=== PATIENT | male | born 1960 | race American Indian/Alaskan Native ===

== ENCOUNTER 2017-12-12 20:49 | Inpatient (IN) | payer OTHER ==
[2017-12-12 22:21] LABS: Hemoglobin 13.9 gm/dl (11.8-15.2); Mean Corpuscular HGB Conc 34 % (32-34); Mean Corpuscular Hemoglobin 31 pg (28-32); Mean Corpuscular Volume 91 fl (84-94); Platelet Count 199 K/mm3 (140-440); Red Blood Count 4.49 M/mm3 (3.65-5.03)
[2017-12-12 22:28] LABS: Red Cell Distribution Width 23.2 % (13.2-15.2)
[2017-12-12 22:30] LABS: INR 1.58 (0.87-1.13)
[2017-12-12 22:31] LABS: Partial Thromboplastin Time 34.8 Sec. (24.2-36.6)
[2017-12-12 22:35] LABS: Albumin 2.6 g/dL (3.9-5); Calcium 7.8 mg/dL (8.4-10.2)
[2017-12-12 22:36] LABS: Albumin 2.7 g/dL (3.9-5)
[2017-12-12 22:38] LABS: Bacteria,Urine 2+ /HPF (Negative); Bilirubin,Urine MOD (Negative); Blood,Urine MOD (Negative); Color,Urine Amber (Yellow); Mucus,Urine FEW /HPF; Protein,Urine <15 mg/dL mg/dL (Negative)
[2017-12-12 22:39] LABS: Ictotest,Urine Positive (Negative)
[2017-12-12 22:56] LABS: Bilirubin,Direct 16.7 mg/dL (0-0.2)
[2017-12-12 23:08] LABS: Basophils % (Manual) 0 % (0.0-1.8); Platelet Estimate Consistent w Auto; Total Cells Counted 100
[2017-12-12 23:09] LABS: Anisocytosis 1+; Ovalocytes 1+; Poikilocytosis 1+; Target Cells 1+
--- NOTE | 2017-12-13 00:11 | Emergency Department Report ---
ED Abdominal Pain HPI - General Chief Complaint: Abdominal Pain Stated Complaint: ABDOMINAL PAIN Source: patient Mode of arrival: Ambulatory Limitations: No Limitations - History of Present Illness Initial Comments: 57-year-old male presents to the Hospital pain and worsening abdominal pain, distention, decreased urine output, and yellowing of his eyes. In January 2017 patient was informed by a doctor that he had liver issues after blood work. He states he was placed on a unkown medication and was unable to follow-up for further testing or imaging due to lack of insurance. For the last 6-7 weeks patient has had progressive abdominal distention, yellowing of the eyes, right- sided abdominal pain, decreased appetite, and decreased urinary output. Abdominal pain rated 7/10 intensity and worse with palpation. No reports of fever, Tylenol overdose, or daily alcohol. No reports of vomiting, fever or chills Severity scale (0 -10): 6 - Related Data Allergies Allergy/AdvReac Type Severity Reaction Status Date / Time No Known Allergies Allergy Unverified 12/12/17 21:36 ED Review of Systems ROS: Stated complaint: ABDOMINAL PAIN Other details as noted in HPI Comment: All other systems reviewed and negative ED Past Medical Hx - Past Medical History Previous Medical History?: Yes Hx Diabetes: Yes - Surgical History Past Surgical History?: No - Social History Smoking Status: Never Smoker Substance Use Type: None ED Physical Exam - General Limitations: No Limitations - Other Other exam information: General: No limitations, patient is alert in no acute distress Head exam: Atraumatic, normocephalic Eyes exam: Significantly icteric sclera ENT: Moist mucous membrane, normal oropharynx Neck exam: Normal inspection, full range of motion, no meningismus nontender Respiratory exam: Clear to auscultation without wheezes, or rales Cardiovascular: Normal rate and rhythm, normal heart sounds Abdomen: Soft, distended, positive ascites, right-sided abdominal tenderness Extremity: Full range of motion normal inspection no deformity Back: Normal Inspection, full range of motion, no tenderness Neurologic: Alert, oriented x3, cranial nerves intact, no motor or sensory deficit Psychiatric: normal affect, normal mood Skin: Warm, dry, intact ED Course Vital Signs 12/12/17 12/12/17 12/12/17 21:09 21:36 23:34 Temperature 95.3 F L 98.3 F Pulse Rate 98 H 98 H Respiratory 22 20 18 Rate Blood Pressure 140/72 Blood Pressure 140/72 [Right] O2 Sat by Pulse 98 98 100 Oximetry - Consultations Consultation #1: 12/13/17 01:17 consult with gi (dr Lozano) and nephro (DR tena) ordered. I did not discuss case with these doctors and pt is stable for consultation in tomorrow. ED Medical Decision Making - Lab Data Result diagrams: 12/12/17 22:06 12/12/17 22:06 Lab Results 12/12/17 12/12/17 12/12/17 Range/Units 22:06 22:06 22:06 WBC 21.0 H (4.5-11.0) K/mm3 RBC 4.49 (3.65-5.03) M/mm3 Hgb 13.9 (11.8-15.2) gm/dl Hct 41.0 (35.5-45.6) % MCV 91 (84-94) fl MCH 31 (28-32) pg MCHC 34 (32-34) % RDW 23.2 H (13.2-15.2) % Plt Count 199 (140-440) K/mm3 Add Manual Diff Complete Total Counted 100 Seg Neuts % (Manual) 94.0 H (40.0-70.0) % Band Neutrophils % 0 % Lymphocytes % (Manual) 1.0 L (13.4-35.0) % Reactive Lymphs % (Man) 0 % Monocytes % (Manual) 4.0 (0.0-7.3) % Eosinophils % (Manual) 1.0 (0.0-4.3) % Basophils % (Manual) 0 (0.0-1.8) % Metamyelocytes % 0 % Myelocytes % 0 % Promyelocytes % 0 % Blast Cells % 0 % Nucleated RBC % Not Reportable Seg Neutrophils # Man 19.7 H (1.8-7.7) K/mm3 Band Neutrophils # 0.0 K/mm3 Lymphocytes # (Manual) 0.2 L (1.2-5.4) K/mm3 Abs React Lymphs (Man) 0.0 K/mm3 Monocytes # (Manual) 0.8 (0.0-0.8) K/mm3 Eosinophils # (Manual) 0.2 (0.0-0.4) K/mm3 Basophils # (Manual) 0.0 (0.0-0.1) K/mm3 Metamyelocytes # 0.0 K/mm3 Myelocytes # 0.0 K/mm3 Promyelocytes # 0.0 K/mm3 Blast Cells # 0.0 K/mm3 WBC Morphology Not Reportable Hypersegmented Neuts Not Reportable Hyposegmented Neuts Not Reportable Hypogranular Neuts Not Reportable Smudge Cells Not Reportable Toxic Granulation Not Reportable Toxic Vacuolation Not Reportable Dohle Bodies Not Reportable Pelger-Huet Anomaly Not Reportable Phyllis Rods Not Reportable Platelet Estimate Consistent w auto Clumped Platelets Not Reportable Plt Clumps, EDTA Not Reportable Large Platelets Not Reportable Giant Platelets Not Reportable Platelet Satelliting Not Reportable Plt Morphology Comment Not Reportable RBC Morphology Not Reportable Dimorphic RBCs Not Reportable Polychromasia Not Reportable Hypochromasia Not Reportable Poikilocytosis 1+ Anisocytosis 1+ Microcytosis Not Reportable Macrocytosis Not Reportable Spherocytes Not Reportable Pappenheimer Bodies Not Reportable Sickle Cells Not Reportable Target Cells 1+ Tear Drop Cells Not Reportable Ovalocytes 1+ Helmet Cells Not Reportable [place] Bodies Not Reportable Mcclave Rings Not Reportable Brijesh Cells Not Reportable Bite Cells Not Reportable Crenated Cell Not Reportable Elliptocytes Not Reportable Acanthocytes (Spur) Not Reportable Rouleaux Not Reportable Hemoglobin C Crystals Not Reportable Schistocytes Not Reportable Malaria parasites Not Reportable Pedro Bodies Not Reportable Hem Pathologist Commnt No PT 19.8 H (12.2-14.9) Sec. INR 1.58 H (0.87-1.13) APTT 34.8 (24.2-36.6) Sec. Sodium (137-145) mmol/L Potassium (3.6-5.0) mmol/L Chloride (98-107) mmol/L Carbon Dioxide (22-30) mmol/L Anion Gap mmol/L BUN (9-20) mg/dL Creatinine (0.8-1.5) mg/dL Estimated GFR ml/min BUN/Creatinine Ratio % Glucose (75-100) mg/dL Calcium (8.4-10.2) mg/dL Total Bilirubin 28.40 H (0.1-1.2) mg/dL Direct Bilirubin 16.7 H (0-0.2) mg/dL Indirect Bilirubin 11.7 mg/dL AST 429 H (5-40) units/L ALT 194 H (7-56) units/L Alkaline Phosphatase 137 H (35-129) units/L Ammonia (25-60) umol/L Total Protein 6.1 L (6.3-8.2) g/dL Albumin 2.7 L (3.9-5) g/dL Albumin/Globulin Ratio 0.8 % Lipase (13-60) units/L Urine Color (Yellow) Urine Turbidity (Clear) Urine pH (5.0-7.0) Ur Specific [place] (1.003-1.030) Urine Protein (Negative) mg/dL Urine Glucose (UA) (Negative) mg/dL Urine Ketones (Negative) mg/dL Urine Blood (Negative) Urine Nitrite (Negative) Urine Bilirubin (Negative) Urine Ictotest (Negative) Urine Urobilinogen (<2.0) mg/dL Ur Leukocyte Esterase (Negative) Urine WBC (Auto) (0.0-6.0) /HPF Urine RBC (Auto) (0.0-6.0) /HPF U Epithel Cells (Auto) (0-13.0) /HPF Urine Bacteria (Auto) (Negative) /HPF Urine Mucus /HPF Acetaminophen (10.0-30.0) ug/mL Hepatitis A IgM Ab (NonReactive) Hep Bs Antigen (Negative) Hep B Core IgM Ab (NonReactive) Hepatitis C Antibody (NonReactive) 12/12/17 12/12/17 12/12/17 Range/Units 22:06 23:35 23:39 WBC (4.5-11.0) K/mm3 RBC (3.65-5.03) M/mm3 Hgb (11.8-15.2) gm/dl Hct (35.5-45.6) % MCV (84-94) fl MCH (28-32) pg MCHC (32-34) % RDW (13.2-15.2) % Plt Count (140-440) K/mm3 Add Manual Diff Total Counted Seg Neuts % (Manual) (40.0-70.0) % Band Neutrophils % % Lymphocytes % (Manual) (13.4-35.0) % Reactive Lymphs % (Man) % Monocytes % (Manual) (0.0-7.3) % Eosinophils % (Manual) (0.0-4.3) % Basophils % (Manual) (0.0-1.8) % Metamyelocytes % % Myelocytes % % Promyelocytes % % Blast Cells % % Nucleated RBC % Seg Neutrophils # Man (1.8-7.7) K/mm3 Band Neutrophils # K/mm3 Lymphocytes # (Manual) (1.2-5.4) K/mm3 Abs React Lymphs (Man) K/mm3 Monocytes # (Manual) (0.0-0.8) K/mm3 Eosinophils # (Manual) (0.0-0.4) K/mm3 Basophils # (Manual) (0.0-0.1) K/mm3 Metamyelocytes # K/mm3 Myelocytes # K/mm3 Promyelocytes # K/mm3 Blast Cells # K/mm3 WBC Morphology Hypersegmented Neuts Hyposegmented Neuts Hypogranular Neuts Smudge Cells Toxic Granulation Toxic Vacuolation Dohle Bodies Pelger-Huet Anomaly Phyllis Rods Platelet Estimate Clumped Platelets Plt Clumps, EDTA Large Platelets Giant Platelets Platelet Satelliting Plt Morphology Comment RBC Morphology Dimorphic RBCs Polychromasia Hypochromasia Poikilocytosis Anisocytosis Microcytosis Macrocytosis Spherocytes Pappenheimer Bodies Sickle Cells Target Cells Tear Drop Cells Ovalocytes Helmet Cells [place] Bodies Mcclave Rings [place] Cells Bite Cells Crenated Cell Elliptocytes Acanthocytes (Spur) Rouleaux Hemoglobin C Crystals Schistocytes Malaria parasites Pedro Bodies Hem Pathologist Commnt PT (12.2-14.9) Sec. INR (0.87-1.13) APTT (24.2-36.6) Sec. Sodium 132 L (137-145) mmol/L Potassium 4.3 (3.6-5.0) mmol/L Chloride 92.4 L (98-107) mmol/L Carbon Dioxide 23 (22-30) mmol/L Anion Gap 21 mmol/L BUN 52 H (9-20) mg/dL Creatinine 1.7 H (0.8-1.5) mg/dL Estimated GFR 42 ml/min BUN/Creatinine Ratio 31 % Glucose 74 L (75-100) mg/dL Calcium 7.8 L (8.4-10.2) mg/dL Total Bilirubin 28.00 H (0.1-1.2) mg/dL Direct Bilirubin (0-0.2) mg/dL Indirect Bilirubin mg/dL AST 418 H (5-40) units/L ALT 190 H (7-56) units/L Alkaline Phosphatase 135 H (35-129) units/L Ammonia (25-60) umol/L Total Protein 6.3 (6.3-8.2) g/dL Albumin 2.6 L (3.9-5) g/dL Albumin/Globulin Ratio 0.7 % Lipase 230 H (13-60) units/L Urine Color (Yellow) Urine Turbidity (Clear) Urine pH (5.0-7.0) Ur Specific [place] (1.003-1.030) Urine Protein (Negative) mg/dL Urine Glucose (UA) (Negative) mg/dL Urine Ketones (Negative) mg/dL Urine Blood (Negative) Urine Nitrite (Negative) Urine Bilirubin (Negative) Urine Ictotest (Negative) Urine Urobilinogen (<2.0) mg/dL Ur Leukocyte Esterase (Negative) Urine WBC (Auto) (0.0-6.0) /HPF Urine RBC (Auto) (0.0-6.0) /HPF U Epithel Cells (Auto) (0-13.0) /HPF Urine Bacteria (Auto) (Negative) /HPF Urine Mucus /HPF Acetaminophen (10.0-30.0) ug/mL Hepatitis A IgM Ab Non-reactive (NonReactive) Hep Bs Antigen Non-reactive (Negative) Hep B Core IgM Ab Non-reactive (NonReactive) Hepatitis C Antibody Non-reactive (NonReactive) 12/12/17 12/12/17 12/12/17 Range/Units 23:39 23:50 Unknown WBC (4.5-11.0) K/mm3 RBC (3.65-5.03) M/mm3 Hgb (11.8-15.2) gm/dl Hct (35.5-45.6) % MCV (84-94) fl MCH (28-32) pg MCHC (32-34) % RDW (13.2-15.2) % Plt Count (140-440) K/mm3 Add Manual Diff Total Counted Seg Neuts % (Manual) (40.0-70.0) % Band Neutrophils % % Lymphocytes % (Manual) (13.4-35.0) % Reactive Lymphs % (Man) % Monocytes % (Manual) (0.0-7.3) % Eosinophils % (Manual) (0.0-4.3) % Basophils % (Manual) (0.0-1.8) % Metamyelocytes % % Myelocytes % % Promyelocytes % % Blast Cells % % Nucleated RBC % Seg Neutrophils # Man (1.8-7.7) K/mm3 Band Neutrophils # K/mm3 Lymphocytes # (Manual) (1.2-5.4) K/mm3 Abs React Lymphs (Man) K/mm3 Monocytes # (Manual) (0.0-0.8) K/mm3 Eosinophils # (Manual) (0.0-0.4) K/mm3 Basophils # (Manual) (0.0-0.1) K/mm3 Metamyelocytes # K/mm3 Myelocytes # K/mm3 Promyelocytes # K/mm3 Blast Cells # K/mm3 WBC Morphology Hypersegmented Neuts Hyposegmented Neuts Hypogranular Neuts Smudge Cells Toxic Granulation Toxic Vacuolation Dohle Bodies Pelger-Huet Anomaly Phyllis Rods Platelet Estimate Clumped Platelets Plt Clumps, EDTA Large Platelets Giant Platelets Platelet Satelliting Plt Morphology Comment RBC Morphology Dimorphic RBCs Polychromasia Hypochromasia Poikilocytosis Anisocytosis Microcytosis Macrocytosis Spherocytes Pappenheimer Bodies Sickle Cells Target Cells Tear Drop Cells Ovalocytes Helmet Cells [place] Bodies Mcclave Rings Brijesh Cells Bite Cells Crenated Cell Elliptocytes Acanthocytes (Spur) Rouleaux Hemoglobin C Crystals Schistocytes Malaria parasites Pedro Bodies Hem Pathologist Commnt PT (12.2-14.9) Sec. INR (0.87-1.13) APTT (24.2-36.6) Sec. Sodium (137-145) mmol/L Potassium (3.6-5.0) mmol/L Chloride (98-107) mmol/L Carbon Dioxide (22-30) mmol/L Anion Gap mmol/L BUN (9-20) mg/dL Creatinine (0.8-1.5) mg/dL Estimated GFR ml/min BUN/Creatinine Ratio % Glucose (75-100) mg/dL Calcium (8.4-10.2) mg/dL Total Bilirubin (0.1-1.2) mg/dL Direct Bilirubin (0-0.2) mg/dL Indirect Bilirubin mg/dL AST (5-40) units/L ALT (7-56) units/L Alkaline Phosphatase (35-129) units/L Ammonia 10.0 L (25-60) umol/L Total Protein (6.3-8.2) g/dL Albumin (3.9-5) g/dL Albumin/Globulin Ratio % Lipase (13-60) units/L Urine Color [place] (Yellow) Urine Turbidity Clear (Clear) Urine pH 5.0 (5.0-7.0) Ur Specific [place] 1.016 (1.003-1.030) Urine Protein <15 mg/dl (Negative) mg/dL Urine Glucose (UA) Neg (Negative) mg/dL Urine Ketones Neg (Negative) mg/dL Urine Blood Mod (Negative) Urine Nitrite Neg (Negative) Urine Bilirubin Mod (Negative) Urine Ictotest Positive (Negative) Urine Urobilinogen 4.0 (<2.0) mg/dL Ur Leukocyte Esterase Tr (Negative) Urine WBC (Auto) 11.0 H (0.0-6.0) /HPF Urine RBC (Auto) 3.0 (0.0-6.0) /HPF U Epithel Cells (Auto) 1.0 (0-13.0) /HPF Urine Bacteria (Auto) 2+ (Negative) /HPF Urine Mucus Few /HPF Acetaminophen < 5.0 L (10.0-30.0) ug/mL Hepatitis A IgM Ab (NonReactive) Hep Bs Antigen (Negative) Hep B Core IgM Ab (NonReactive) Hepatitis C Antibody (NonReactive) - Radiology Data Radiology results: report reviewed read by radiologist: unique US: IMPRESSION: Cirrhotic changes of the liver. No focal hepatic lesion is demonstrated. Moderate ascites. No shadowing gallstones or biliary dilatation. Bowel gas obscures the pancreas. ct a/p noncontrast: Cirrhotic changes of the liver. No focal hepatic lesions. Moderate ascites and mild to moderate enlargement of the spleen. Multiple enlarged upper abdominal lymph nodes suspected to be reactive secondary to portal hypertension - Medical Decision Making Patient has chronic progressive liver disease initially diagnosed in January 2017. Patient was unable to follow up. Now he has jaundice, signs of liver failure, cirrhosis, and renal insufficiency. Hepatitis panel unremarkable. CT and ultrasound only significant for cirrhosis and ascites. Patient will be admitted to the hospital for further evaluation by GI and renal Patient has a WBC count of 21. Urine shows bacteria and elevated WBCs obtained from catheterization. Cultures of urine and blood are pending. Rocephin initiated. - Differential Diagnosis liver failure, cancer, hepatitis, biliary obstruction Critical Care Time: No Critical care attestation.: If time is entered above; I have spent that time in minutes in the direct care of this critically ill patient, excluding procedure time. ED Disposition Clinical Impression: Cirrhosis of liver, Jaundice, Elevated LFTs, Ascites, Renal insufficiency, UTI (urinary tract infection), Leukocytosis Disposition: OP ADMIT IP TO THIS HOSP Is pt being admited?: Yes Condition: Stable Time of Disposition: 01:21 (Dr Gamino/hosp)
[2017-12-13 00:41] LABS: Hepatitis A Antibody IgM Non-Reactive (NonReactive); Hepatitis B Core IgM Non-Reactive (NonReactive); Hepatitis B Surface Antigen Non-Reactive (Negative); Hepatitis C Virus Antibody Non-Reactive (NonReactive)
--- NOTE | 2017-12-13 01:04 | Cat Scan Report ---
FINAL REPORT EXAM: CT ABDOMEN PELVIS WO CON HISTORY: elevated lft's, jaundice, renal insuf COMPARISON: None available. TECHNIQUE: Contiguous axial images were obtained. Additional sagittal and coronal reformatted images were obtained. FINDINGS: Mild linear atelectasis at the lung bases. Trace left-sided pleural effusion. No calcified gallstones. Nodular contour of the liver concerning for cirrhosis. No gross focal hepatic lesion on this noncontrast study. Spleen is enlarged measuring 14 centimeters in length. Pancreas is grossly unremarkable. No adrenal mass. No nephrolithiasis or hydronephrosis. Aorta and IVC are normal in caliber. Mild to moderate calcified plaque along the aorta. Tate catheter decompresses the urinary bladder. Prostate gland is mildly enlarged measuring 4.1 x 5.4 centimeters in axial dimension. Moderate ascites. No loculated collection or free air. Several prominent abdominal lymph nodes suspected to be reactive secondary to portal hypertension. Mild wall thickening of segments of large and small bowel loops which may be reactive secondary to ascites/hypoproteinemia. The appendix is not visualized. No bowel obstruction. No free air pneumatosis. Lumbar vertebral body heights preserved. Bony pelvis is grossly intact. IMPRESSION: Cirrhotic changes of the liver. No focal hepatic lesion on this noncontrast study. Moderate ascites and [id number] enlargement of the spleen. Multiple enlarged upper abdominal lymph nodes suspected to be reactive secondary to portal hypertension. Mild wall thickening of segments of large and small bowel loops which may be reactive secondary to ascites/hypoproteinemia. Mild primary inflammation of bowel is not excluded. The appendix is not visualized. No bowel obstruction. No free air pneumatosis.
--- NOTE | 2017-12-13 01:07 | Ultrasound Report ---
FINAL REPORT EXAM: US ABDOMEN COMPLETE HISTORY: elevated lft, jaundice, COMPARISON: CT of the abdomen pelvis from the same date. TECHNIQUE: Several real-time grayscale and color Doppler images were obtained. FINDINGS: Nodular contour of the liver with heterogeneous echogenicity compatible cirrhosis. Moderate ascites at the margin of the liver. No focal hepatic lesion is demonstrated. Bowel gas obscures the pancreas. No shadowing gallstones. No biliary dilatation. The common bile duct measures 3 millimeters. Presence of ascites limits evaluation of gallbladder wall thickening. Right kidney measures 12 centimeters in length. The left kidney measures 12.3 centimeters in length. No hydronephrosis. Spleen measures 12 centimeters. IMPRESSION: Cirrhotic changes of the liver. No focal hepatic lesion is demonstrated. Moderate ascites. No shadowing gallstones or biliary dilatation. Bowel gas obscures the pancreas.
[2017-12-13] MEDS ORDERED: ROCEPHIN/NS 1 GM/50 ML 1 GM/50 ML BAG IV ONE (01:15)
[2017-12-13] MEDS ORDERED: cefTRIAXone 1 GM in NACL 0.9% 20 ML IV ONE (01:30)
[2017-12-13] MEDS ORDERED: MORPHINE IV PRN (03:24)
[2017-12-13] MEDS ORDERED: TYLENOL PO PRN (03:24)
[2017-12-13] MEDS ORDERED: ZOFRAN IV PRN (03:24)
[2017-12-13] MEDS ORDERED: SODIUM CHLORIDE FLUSH SYRINGE 10 ML IV PRN (03:24)
--- NOTE | 2017-12-13 03:30 | History and Physical Report ---
History of Present Illness Date of examination: 12/13/17 History of present illness: 57-year-old man with a history of liver disease diagnosed in January 2017 comes to emergency room with complaints of right lower quadrant pain which has been ongoing over the last several weeks. The patient is unable to describe the pain , intermittent in nature lasting for a few hours, intensity 7/10, no radiation , he can identify exacerbating or relieving factors. He admits to nausea, no vomiting, no alcohol, drug use. He states when he was diagnosed in 2016 he was unable to follow up with his primary care for further testing due to lack of insurance. He states he was given some pills which she took however he cannot recall the name of the pills Review of systems Constitutional: no weight loss, chills Ears, eyes, nose, mouth and throat: no nasal congestion, no nasal discharge, no sinus pressure, no vision change, no red eye. Neck: No neck pain or rigidity. Cardiovascular: no chest pain, palpitations Respiratory: No cough, shortness of breath Gastrointestinal: no hematochezia Genitourinary : no dysuria, frequency , no hematuria Musculoskeletal: no joint swelling or muscle ache Integumentary: no rash, no pruritis Neurological: no parathesias, no numbness, no focal weakness Endocrine: no cold or heat intolerance, no polyuria or polydipsia Hematologic/Lymphatic: no easy bruising, no easy bleeding, no gland swelling Allergic/Immunologic: no urticaria, no angioedema. PAST MEDICAL HISTORY: Cirrhosis PAST SURGICAL HISTORY: None SOCIAL HISTORY: Denies alcohol, tobacco, drugs FAMILY HISTORY: Hypertension Medications and Allergies Allergies Allergy/AdvReac Type Severity Reaction Status Date / Time No Known Allergies Allergy Unverified 12/12/17 21:36 Home Medications Medication Instructions Recorded Confirmed Last Taken Type Docusate Sodium [Colace] 100 mg PO BID PRN #20 capsule 12/22/17 Unknown Rx Famotidine [Pepcid] 20 mg PO BID #30 tablet 12/22/17 Unknown Rx Ondansetron [Zofran TAB] 4 mg PO Q8HR PRN #15 tablet 12/22/17 Unknown Rx Active Meds: Active Medications Acetaminophen (Tylenol) 650 mg PO Q4H PRN PRN Reason: Pain MILD(1-3)/Fever >100.5/POP Ceftriaxone Sodium (Rocephin/Ns 1 Gm/50 Ml) 1 gm in 50 mls @ 100 mls/hr IV Q24H BHARGAVI; Protocol Morphine Sulfate (Morphine) 1 mg IV Q4H PRN PRN Reason: Pain, Moderate (4-6) Ondansetron HCl (Zofran) 4 mg IV Q8H PRN PRN Reason: Nausea And Vomiting Sodium Chloride (Sodium Chloride Flush Syringe 10 Ml) 10 ml IV BID BHARGAVI Sodium Chloride (Sodium Chloride Flush Syringe 10 Ml) 10 ml IV PRN PRN PRN Reason: LINE FLUSH Exam - Physical Exam Narrative exam: Gen. appearance: Patient lying in bed, no apparent distress HEENT: Normocephalic, atraumatic, pupils equally round and reactive to light, extraocular movement intact, positive sclericterus,. No JVD or thyromegaly or nodule,neck supple, no carotid bruit ,mucous membranes moist, no exudate or erythema Heart: S1, S2, regular rate and rhythm Lungs: Clear to auscultation bilaterally, breathing comfortable Abdomen: Positive bowel sounds, tender right lower quadrant, nondistended, no organomegaly Extremity: No edema, cyanosis, clubbing Skin: Jaundice, No rash, nodules, warm, dry Neuro: Oriented 3, cranial nerves II-12 intact, speech is fluent, motor and sensory intact - Constitutional Vitals: Temp Pulse Resp BP Pulse Ox 98.3 F 96 H 18 136/62 99 12/12/17 21:36 12/13/17 01:00 12/13/17 01:00 12/13/17 01:00 12/13/17 01:00 Results - Labs CBC & Chem 7: 12/20/17 07:00 12/22/17 10:27 Labs: Abnormal lab results 12/12/17 12/12/17 12/12/17 Range/Units 22:06 22:06 22:06 WBC 21.0 H (4.5-11.0) K/mm3 RDW 23.2 H (13.2-15.2) % Seg Neuts % (Manual) 94.0 H (40.0-70.0) % Lymphocytes % (Manual) 1.0 L (13.4-35.0) % Seg Neutrophils # Man 19.7 H (1.8-7.7) K/mm3 Lymphocytes # (Manual) 0.2 L (1.2-5.4) K/mm3 PT 19.8 H (12.2-14.9) Sec. INR 1.58 H (0.87-1.13) Sodium (137-145) mmol/L Chloride (98-107) mmol/L BUN (9-20) mg/dL Creatinine (0.8-1.5) mg/dL Glucose (75-100) mg/dL Calcium (8.4-10.2) mg/dL Total Bilirubin 28.40 H (0.1-1.2) mg/dL Direct Bilirubin 16.7 H (0-0.2) mg/dL AST 429 H (5-40) units/L ALT 194 H (7-56) units/L Alkaline Phosphatase 137 H (35-129) units/L Ammonia (25-60) umol/L Total Protein 6.1 L (6.3-8.2) g/dL Albumin 2.7 L (3.9-5) g/dL Lipase (13-60) units/L Urine WBC (Auto) (0.0-6.0) /HPF Acetaminophen (10.0-30.0) ug/mL 12/12/17 12/12/17 12/12/17 Range/Units 22:06 23:35 23:39 WBC (4.5-11.0) K/mm3 RDW (13.2-15.2) % Seg Neuts % (Manual) (40.0-70.0) % Lymphocytes % (Manual) (13.4-35.0) % Seg Neutrophils # Man (1.8-7.7) K/mm3 Lymphocytes # (Manual) (1.2-5.4) K/mm3 PT (12.2-14.9) Sec. INR (0.87-1.13) Sodium 132 L (137-145) mmol/L Chloride 92.4 L (98-107) mmol/L BUN 52 H (9-20) mg/dL Creatinine 1.7 H (0.8-1.5) mg/dL Glucose 74 L (75-100) mg/dL Calcium 7.8 L (8.4-10.2) mg/dL Total Bilirubin 28.00 H (0.1-1.2) mg/dL Direct Bilirubin (0-0.2) mg/dL AST 418 H (5-40) units/L ALT 190 H (7-56) units/L Alkaline Phosphatase 135 H (35-129) units/L Ammonia (25-60) umol/L Total Protein (6.3-8.2) g/dL Albumin 2.6 L (3.9-5) g/dL Lipase 230 H (13-60) units/L Urine WBC (Auto) (0.0-6.0) /HPF Acetaminophen < 5.0 L (10.0-30.0) ug/mL 12/12/17 12/12/17 Range/Units 23:50 Unknown WBC (4.5-11.0) K/mm3 RDW (13.2-15.2) % Seg Neuts % (Manual) (40.0-70.0) % Lymphocytes % (Manual) (13.4-35.0) % Seg Neutrophils # Man (1.8-7.7) K/mm3 Lymphocytes # (Manual) (1.2-5.4) K/mm3 PT (12.2-14.9) Sec. INR (0.87-1.13) Sodium (137-145) mmol/L Chloride (98-107) mmol/L BUN (9-20) mg/dL Creatinine (0.8-1.5) mg/dL Glucose (75-100) mg/dL Calcium (8.4-10.2) mg/dL Total Bilirubin (0.1-1.2) mg/dL Direct Bilirubin (0-0.2) mg/dL AST (5-40) units/L ALT (7-56) units/L Alkaline Phosphatase (35-129) units/L Ammonia 10.0 L (25-60) umol/L Total Protein (6.3-8.2) g/dL Albumin (3.9-5) g/dL Lipase (13-60) units/L Urine WBC (Auto) 11.0 H (0.0-6.0) /HPF Acetaminophen (10.0-30.0) ug/mL - Imaging and Cardiology CT scan - abdomen: report reviewed CT Scan - head: report reviewed US - abdomen: report reviewed Assessment and Plan Assessment Cirrhosis, unclear etiology UTI Ascites jaundice Acute renal failure Coagulopathy Plan Admit to medicine Check hepatitis panel, consult GI, renal Start empiric IV Rocephin, follow cultures DVT prophylaxis
--- NOTE | 2017-12-13 09:44 | Gastroenterology Consultation ---
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 bili of 28. He was told of cirrhosis a year ago by a physician but has had no medical follow up which he attributes to lack of affordable insurance. He reports being a few medications for a few months but does not recall the names of these. He has no history alcohol use and does not take OTC meds with the exception of some maltese herbs, the details of which he does not recall. He was told of an elevated BG about a year ago, but has had no f/u on this. There is no FH of liver disease. Past History Past Medical History: diabetes, liver disease Past Surgical History: No surgical history Social history: no significant social history, lives with family. denies: smoking, alcohol abuse Family history: no significant family history Medications and Allergies Allergies Allergy/AdvReac Type Severity Reaction Status Date / Time No Known Allergies Allergy Unverified 12/12/17 21:36 Active Meds: Active Medications Acetaminophen (Tylenol) 650 mg PO Q4H PRN PRN Reason: Pain MILD(1-3)/Fever >100.5/POP Ceftriaxone Sodium 1 gm/ (Sodium Chloride) 20 mls @ 2 mls/min IV Q24HR BHARGAVI Morphine Sulfate (Morphine) 1 mg IV Q4H PRN PRN Reason: Pain, Moderate (4-6) Ondansetron HCl (Zofran) 4 mg IV Q8H PRN PRN Reason: Nausea And Vomiting Sodium Chloride (Sodium Chloride Flush Syringe 10 Ml) 10 ml IV BID BHARGAVI Sodium Chloride (Sodium Chloride Flush Syringe 10 Ml) 10 ml IV PRN PRN PRN Reason: LINE FLUSH Review of Systems - Review of Systems Constitutional: no weight loss, no weight gain, no fever, no chills Eyes: no change in vision, no pain Ears, Nose, Throat: no decreased hearing, no difficulty swallowing, no painful swallowing Cardiovascular: no chest pain, no edema, no rapid/irregular heart beat, no shortness of breath Respiratory: no cough, no shortness of breath, no wheezing Gastrointestinal: jaundice, no abdominal pain, no nausea, no vomiting, no diarrhea, no constipation, no hematemesis, no coffee ground emesis, no BRBPR, no melena, no heartburn, no belching Rectal: no pain, no bleeding Male Genitourinary: deferred Musculoskeletal: no gait dysfunction, no joint pain, no muscle pain, no muscle weakness Integumentary: jaundice, no rash, no pruritis Neurological: no paralysis, no weakness, no memory loss, no changes in smell/ taste Psychiatric: no anxiety, no memory loss, no change in sleep habits, no change in appetite, no suicidal ideation, no disorientation Endocrine: no cold intolerance, no heat intolerance Hematologic/Lymphatic: no easy bruising, no easy bleeding Allergic/Immunologic: no wheezing Exam - Constitutional Vital Signs: Temp Pulse Resp BP Pulse Ox 98.3 F 101 H 20 122/66 96 12/13/17 07:20 12/13/17 07:20 12/13/17 07:20 12/13/17 07:20 12/13/17 07:20 General appearance: no acute distress, well-nourished, obese - EENT Eyes: PERRL, EOM intact, scleral icterus ENT: no hearing intact, no clear oral mucosa, no dentition normal - Neck Neck: no supple, no normal ROM, no rigidity - Respiratory Respiratory effort: normal Respiratory: bilateral: CTA - Breasts Breasts: deferred - Cardiovascular Rhythm: regular Heart Sounds: Present: S1 & S2. Absent: gallop, rub Extremities: pulses intact, No edema, normal color, Full ROM - Gastrointestinal General gastrointestinal: Present: soft, non-tender, non-distended, normal bowel sounds, other (obese). Absent: hepatomegaly, splenomegaly, mass Rectal Exam: deferred - Genitourinary Male Genitourinary: deferred - Integumentary Integumentary: Present: clear, warm, dry - Musculoskeletal Musculoskeletal: normal - Neurologic Neurological: alert and oriented x3 - Psychiatric Psychiatric: appropriate mood/affect, intact judgment & insight, memory intact - Labs CBC & Chem 7: 12/12/17 22:06 12/12/17 22:06 Lab Results: Laboratory Results - last 24 hr 12/12/17 12/12/17 12/12/17 22:06 22:06 22:06 WBC 21.0 H RBC 4.49 Hgb 13.9 Hct 41.0 MCV 91 MCH 31 MCHC 34 RDW 23.2 H Plt Count 199 Add Manual Diff Complete Total Counted 100 Seg Neuts % (Manual) 94.0 H Band Neutrophils % 0 Lymphocytes % (Manual) 1.0 L Reactive Lymphs % (Man) 0 Monocytes % (Manual) 4.0 Eosinophils % (Manual) 1.0 Basophils % (Manual) 0 Metamyelocytes % 0 Myelocytes % 0 Promyelocytes % 0 Blast Cells % 0 Nucleated RBC % Not Reportable Seg Neutrophils # Man 19.7 H Band Neutrophils # 0.0 Lymphocytes # (Manual) 0.2 L Abs React Lymphs (Man) 0.0 Monocytes # (Manual) 0.8 Eosinophils # (Manual) 0.2 Basophils # (Manual) 0.0 Metamyelocytes # 0.0 Myelocytes # 0.0 Promyelocytes # 0.0 Blast Cells # 0.0 WBC Morphology Not Reportable Hypersegmented Neuts Not Reportable Hyposegmented Neuts Not Reportable Hypogranular Neuts Not Reportable Smudge Cells Not Reportable Toxic Granulation Not Reportable Toxic Vacuolation Not Reportable Dohle Bodies Not Reportable Pelger-Huet Anomaly Not Reportable Phyllis Rods Not Reportable Platelet Estimate Consistent w auto Clumped Platelets Not Reportable Plt Clumps, EDTA Not Reportable Large Platelets Not Reportable Giant Platelets Not Reportable Platelet Satelliting Not Reportable Plt Morphology Comment Not Reportable RBC Morphology Not Reportable Dimorphic RBCs Not Reportable Polychromasia Not Reportable Hypochromasia Not Reportable Poikilocytosis 1+ Anisocytosis 1+ Microcytosis Not Reportable Macrocytosis Not Reportable Spherocytes Not Reportable Pappenheimer Bodies Not Reportable Sickle Cells Not Reportable Target Cells 1+ Tear Drop Cells Not Reportable Ovalocytes 1+ Helmet Cells Not Reportable [place] Bodies Not Reportable [place] Rings Not Reportable Brijesh Cells Not Reportable Bite Cells Not Reportable Crenated Cell Not Reportable Elliptocytes Not Reportable Acanthocytes (Spur) Not Reportable Rouleaux Not Reportable Hemoglobin C Crystals Not Reportable Schistocytes Not Reportable Malaria parasites Not Reportable Pedro Bodies Not Reportable Hem Pathologist Commnt No PT 19.8 H INR 1.58 H APTT 34.8 Sodium Potassium Chloride Carbon Dioxide Anion Gap BUN Creatinine Estimated GFR BUN/Creatinine Ratio Glucose Calcium Total Bilirubin 28.40 H Direct Bilirubin 16.7 H Indirect Bilirubin 11.7 AST 429 H ALT 194 H Alkaline Phosphatase 137 H Ammonia Total Protein 6.1 L Albumin 2.7 L Albumin/Globulin Ratio 0.8 Lipase Urine Color Urine Turbidity Urine pH Ur Specific [place] Urine Protein Urine Glucose (UA) Urine Ketones Urine Blood Urine Nitrite Urine Bilirubin Urine Ictotest Urine Urobilinogen Ur Leukocyte Esterase Urine WBC (Auto) Urine RBC (Auto) U Epithel Cells (Auto) Urine Bacteria (Auto) Urine Mucus Acetaminophen Hepatitis A IgM Ab Hep Bs Antigen Hep B Core IgM Ab Hepatitis C Antibody 12/12/17 12/12/17 12/12/17 22:06 23:35 23:39 WBC RBC Hgb Hct MCV MCH MCHC RDW Plt Count Add Manual Diff Total Counted Seg Neuts % (Manual) Band Neutrophils % Lymphocytes % (Manual) Reactive Lymphs % (Man) Monocytes % (Manual) Eosinophils % (Manual) Basophils % (Manual) Metamyelocytes % Myelocytes % Promyelocytes % Blast Cells % Nucleated RBC % Seg Neutrophils # Man Band Neutrophils # Lymphocytes # (Manual) Abs React Lymphs (Man) Monocytes # (Manual) Eosinophils # (Manual) Basophils # (Manual) Metamyelocytes # Myelocytes # Promyelocytes # Blast Cells # WBC Morphology Hypersegmented Neuts Hyposegmented Neuts Hypogranular Neuts Smudge Cells Toxic Granulation Toxic Vacuolation Dohle Bodies Pelger-Huet Anomaly Phyllis Rods Platelet Estimate Clumped Platelets Plt Clumps, EDTA Large Platelets Giant Platelets Platelet Satelliting Plt Morphology Comment RBC Morphology Dimorphic RBCs Polychromasia Hypochromasia Poikilocytosis Anisocytosis Microcytosis Macrocytosis Spherocytes Pappenheimer Bodies Sickle Cells Target Cells Tear Drop Cells Ovalocytes Helmet Cells [place] Bodies [place] Rings [place] Cells Bite Cells Crenated Cell Elliptocytes Acanthocytes (Spur) Rouleaux Hemoglobin C Crystals Schistocytes Malaria parasites Pedro Bodies Hem Pathologist Commnt PT INR APTT Sodium 132 L Potassium 4.3 Chloride 92.4 L Carbon Dioxide 23 Anion Gap 21 BUN 52 H Creatinine 1.7 H Estimated GFR 42 BUN/Creatinine Ratio 31 Glucose 74 L Calcium 7.8 L Total Bilirubin 28.00 H Direct Bilirubin Indirect Bilirubin AST 418 H ALT 190 H Alkaline Phosphatase 135 H Ammonia Total Protein 6.3 Albumin 2.6 L Albumin/Globulin Ratio 0.7 Lipase 230 H Urine Color Urine Turbidity Urine pH Ur Specific [place] Urine Protein Urine Glucose (UA) Urine Ketones Urine Blood Urine Nitrite Urine Bilirubin Urine Ictotest Urine Urobilinogen Ur Leukocyte Esterase Urine WBC (Auto) Urine RBC (Auto) U Epithel Cells (Auto) Urine Bacteria (Auto) Urine Mucus Acetaminophen Hepatitis A IgM Ab Non-reactive Hep Bs Antigen Non-reactive Hep B Core IgM Ab Non-reactive Hepatitis C Antibody Non-reactive 12/12/17 12/12/17 12/12/17 23:39 23:50 Unknown WBC RBC Hgb Hct MCV MCH MCHC RDW Plt Count Add Manual Diff Total Counted Seg Neuts % (Manual) Band Neutrophils % Lymphocytes % (Manual) Reactive Lymphs % (Man) Monocytes % (Manual) Eosinophils % (Manual) Basophils % (Manual) Metamyelocytes % Myelocytes % Promyelocytes % Blast Cells % Nucleated RBC % Seg Neutrophils # Man Band Neutrophils # Lymphocytes # (Manual) Abs React Lymphs (Man) Monocytes # (Manual) Eosinophils # (Manual) Basophils # (Manual) Metamyelocytes # Myelocytes # Promyelocytes # Blast Cells # WBC Morphology Hypersegmented Neuts Hyposegmented Neuts Hypogranular Neuts Smudge Cells Toxic Granulation Toxic Vacuolation Dohle Bodies Pelger-Huet Anomaly Phyllis Rods Platelet Estimate Clumped Platelets Plt Clumps, EDTA Large Platelets Giant Platelets Platelet Satelliting Plt Morphology Comment RBC Morphology Dimorphic RBCs Polychromasia Hypochromasia Poikilocytosis Anisocytosis Microcytosis Macrocytosis Spherocytes Pappenheimer Bodies Sickle Cells Target Cells Tear Drop Cells Ovalocytes Helmet Cells [place] Bodies [place] Rings Brijesh Cells Bite Cells Crenated Cell Elliptocytes Acanthocytes (Spur) Rouleaux Hemoglobin C Crystals Schistocytes Malaria parasites Pedro Bodies Hem Pathologist Commnt PT INR APTT Sodium Potassium Chloride Carbon Dioxide Anion Gap BUN Creatinine Estimated GFR BUN/Creatinine Ratio Glucose Calcium Total Bilirubin Direct Bilirubin Indirect Bilirubin AST ALT Alkaline Phosphatase Ammonia 10.0 L Total Protein Albumin Albumin/Globulin Ratio Lipase Urine Color Chasity Urine Turbidity Clear Urine pH 5.0 Ur Specific [place] 1.016 Urine Protein <15 mg/dl Urine Glucose (UA) Neg Urine Ketones Neg Urine Blood Mod Urine Nitrite Neg Urine Bilirubin Mod Urine Ictotest Positive Urine Urobilinogen 4.0 Ur Leukocyte Esterase Tr Urine WBC (Auto) 11.0 H Urine RBC (Auto) 3.0 U Epithel Cells (Auto) 1.0 Urine Bacteria (Auto) 2+ Urine Mucus Few Acetaminophen < 5.0 L Hepatitis A IgM Ab Hep Bs Antigen Hep B Core IgM Ab Hepatitis C Antibody - Imaging CT Scan: image reviewed (There is a small amount of ascites present. The liver is somewhat small and slightly nodular. No focal lesions on this non contrasted study) Ultrasound: report reviewed (No focal lesions or dilated ducts.) Assessment and Plan - Patient Problems (1) Ascites Current Visit: Yes Status: Acute (2) Cirrhosis of liver Current Visit: Yes Status: Acute Plan to address problem: Apparent advanced cirrhosis of uncertain origin at this point. The gravity of his condition was dicussed with patient and his sister at bedside. No history of signficant ETOH use at any point. Rule out PBC, PSC, autoimmune liver disease, CUNHA, coppper or iron storage disease, and alpha 1 AT deficiency. Hepatitis B and C studies are presently negative. Rule out drug induced component of liver injury as he was taking some "maltese herbs." The patient may need to be referred to a transplant center soon if there is no improvement. A liver biopsy may considered to exclude an infiltrative process, but will reassess if coags can be corrected further. MELD score is 31 presently although some component of renal insufficiency may be due to dehydration. Thank you Dr. Cosme for asking me to see him in consultation. (3) Elevated LFTs Current Visit: Yes Status: Acute (4) Jaundice Current Visit: Yes Status: Acute (5) Renal insufficiency Current Visit: Yes Status: Acute
--- NOTE | 2017-12-13 09:55 | Progress Note ---
Assessment and Plan Assessment and plan: --Cirrhosis liver; Advanced stage liver cirrhosis liver, Hepatitis panel negative, workup and management per GI Patient may need liver biopsy, referral to transplant center if no improvement Continue supportive care, IV diuretics, Recommend MRI with contrast, nephrology following the patient --Acute on chronic kidney disease stage III; Closely monitor renal function, avoid nephrotoxic medications Nephrology evaluation and recommendations are noted and appreciated In the setting of acute on chronic kidney failure, patient has a risk of contrast-induced nephropathy with worsening renal function with IV contrast. --Coagulopathy; secondary to cirrhosis, closely monitor, consider vitamin K as needed --Large ascites; continue supportive care, oxygen as needed, paracentesis if needed after MRI -- urinary tract infection, present on admission Continue empiric antibiotics, follow cultures --Severe hypoalbuminemia, protein calorie malnutrition, nutrition supplements and supportive care --DVT prophylaxis with SCD and no pharmacologic anticoagulation in view of coagulopathy and cirrhosis Closely monitor the patient and adjust the management as needed Consults and recommendations noted and appreciated Plan of care reviewed with the patient and family member at the bedside as well as the nurse History Interval history: Patient seen and examined medical records reviewed Patient feels slightly better complaints of mild abdominal pain Admitted with transaminitis worsening ascites GI has evaluated ,Advised MRI abdomen with contrast The above patient has acute kidney injury with creatinine of 1.7 Nephrology following Patient alert awake oriented 3 Icteric Vital signs reviewed Hospitalist Physical - Constitutional Vitals: Temp Pulse Resp BP Pulse Ox 98.3 F 101 H 20 122/66 96 12/13/17 07:20 12/13/17 07:20 12/13/17 07:20 12/13/17 07:20 12/13/17 07:20 General appearance: Present: no acute distress, well-nourished, obese - EENT Eyes: Present: PERRL, EOM intact - Neck Neck: Present: supple, normal ROM - Respiratory Respiratory effort: normal Respiratory: bilateral: diminished, rales, negative: rhonchi, wheezing - Cardiovascular Rhythm: regular Heart Sounds: Present: S1 & S2 - Extremities Extremities: no ischemia Extremity abnormal: edema - Abdominal General gastrointestinal: soft, non-distended, distended, normal bowel sounds - Integumentary Integumentary: Present: clear, warm, jaundice - Psychiatric Psychiatric: appropriate mood/affect, cooperative - Neurologic Neurologic: CNII-XII intact, moves all extremities Results - Labs CBC & Chem 7: 12/12/17 22:06 12/12/17 22:06 Labs: Laboratory Last Values WBC 21.0 K/mm3 (4.5-11.0) H 12/12/17 22:06 RBC 4.49 M/mm3 (3.65-5.03) 12/12/17 22:06 Hgb 13.9 gm/dl (11.8-15.2) 12/12/17 22:06 Hct 41.0 % (35.5-45.6) 12/12/17 22:06 MCV 91 fl (84-94) 12/12/17 22:06 MCH 31 pg (28-32) 12/12/17 22:06 MCHC 34 % (32-34) 12/12/17 22:06 RDW 23.2 % (13.2-15.2) H 12/12/17 22:06 Plt Count 199 K/mm3 (140-440) 12/12/17 22:06 Add Manual Diff Complete 12/12/17 22:06 Total Counted 100 12/12/17 22:06 Seg Neuts % (Manual) 94.0 % (40.0-70.0) H 12/12/17 22:06 Band Neutrophils % 0 % 12/12/17 22:06 Lymphocytes % (Manual) 1.0 % (13.4-35.0) L 12/12/17 22:06 Reactive Lymphs % (Man) 0 % 12/12/17 22:06 Monocytes % (Manual) 4.0 % (0.0-7.3) 12/12/17 22:06 Eosinophils % (Manual) 1.0 % (0.0-4.3) 12/12/17 22:06 Basophils % (Manual) 0 % (0.0-1.8) 12/12/17 22:06 Metamyelocytes % 0 % 12/12/17 22:06 Myelocytes % 0 % 12/12/17 22:06 Promyelocytes % 0 % 12/12/17 22:06 Blast Cells % 0 % 12/12/17 22:06 Nucleated RBC % Not Reportable 12/12/17 22:06 Seg Neutrophils # Man 19.7 K/mm3 (1.8-7.7) H 12/12/17 22:06 Band Neutrophils # 0.0 K/mm3 12/12/17 22:06 Lymphocytes # (Manual) 0.2 K/mm3 (1.2-5.4) L 12/12/17 22:06 Abs React Lymphs (Man) 0.0 K/mm3 12/12/17 22:06 Monocytes # (Manual) 0.8 K/mm3 (0.0-0.8) 12/12/17 22:06 Eosinophils # (Manual) 0.2 K/mm3 (0.0-0.4) 12/12/17 22:06 Basophils # (Manual) 0.0 K/mm3 (0.0-0.1) 12/12/17 22:06 Metamyelocytes # 0.0 K/mm3 12/12/17 22:06 Myelocytes # 0.0 K/mm3 12/12/17 22:06 Promyelocytes # 0.0 K/mm3 12/12/17 22:06 Blast Cells # 0.0 K/mm3 12/12/17 22:06 WBC Morphology Not Reportable 12/12/17 22:06 Hypersegmented Neuts Not Reportable 12/12/17 22:06 Hyposegmented Neuts Not Reportable 12/12/17 22:06 Hypogranular Neuts Not Reportable 12/12/17 22:06 Smudge Cells Not Reportable 12/12/17 22:06 Toxic Granulation Not Reportable 12/12/17 22:06 Toxic Vacuolation Not Reportable 12/12/17 22:06 Dohle Bodies Not Reportable 12/12/17 22:06 Pelger-Huet Anomaly Not Reportable 12/12/17 22:06 Phyllis Rods Not Reportable 12/12/17 22:06 Platelet Estimate Consistent w auto 12/12/17 22:06 Clumped Platelets Not Reportable 12/12/17 22:06 Plt Clumps, EDTA Not Reportable 12/12/17 22:06 Large Platelets Not Reportable 12/12/17 22:06 Giant Platelets Not Reportable 12/12/17 22:06 Platelet Satelliting Not Reportable 12/12/17 22:06 Plt Morphology Comment Not Reportable 12/12/17 22:06 RBC Morphology Not Reportable 12/12/17 22:06 Dimorphic RBCs Not Reportable 12/12/17 22:06 Polychromasia Not Reportable 12/12/17 22:06 Hypochromasia Not Reportable 12/12/17 22:06 Poikilocytosis 1+ 12/12/17 22:06 Anisocytosis 1+ 12/12/17 22:06 Microcytosis Not Reportable 12/12/17 22:06 Macrocytosis Not Reportable 12/12/17 22:06 Spherocytes Not Reportable 12/12/17 22:06 Pappenheimer Bodies Not Reportable 12/12/17 22:06 Sickle Cells Not Reportable 12/12/17 22:06 Target Cells 1+ 12/12/17 22:06 Tear Drop Cells Not Reportable 12/12/17 22:06 Ovalocytes 1+ 12/12/17 22:06 Helmet Cells Not Reportable 12/12/17 22:06 [place] Bodies Not Reportable 12/12/17 22:06 [place] Rings Not Reportable 12/12/17 22:06 Brijesh Cells Not Reportable 12/12/17 22:06 Bite Cells Not Reportable 12/12/17 22:06 Crenated Cell Not Reportable 12/12/17 22:06 Elliptocytes Not Reportable 12/12/17 22:06 Acanthocytes (Spur) Not Reportable 12/12/17 22:06 Rouleaux Not Reportable 12/12/17 22:06 Hemoglobin C Crystals Not Reportable 12/12/17 22:06 Schistocytes Not Reportable 12/12/17 22:06 Malaria parasites Not Reportable 12/12/17 22:06 Pedro Bodies Not Reportable 12/12/17 22:06 Hem Pathologist Commnt No 12/12/17 22:06 PT 19.8 Sec. (12.2-14.9) H 12/12/17 22:06 INR 1.58 (0.87-1.13) H 12/12/17 22:06 APTT 34.8 Sec. (24.2-36.6) 12/12/17 22:06 Sodium 132 mmol/L (137-145) L 12/12/17 22:06 Potassium 4.3 mmol/L (3.6-5.0) 12/12/17 22:06 Chloride 92.4 mmol/L (98-107) L 12/12/17 22:06 Carbon Dioxide 23 mmol/L (22-30) 12/12/17 22:06 Anion Gap 21 mmol/L 12/12/17 22:06 BUN 52 mg/dL (9-20) H 12/12/17 22:06 Creatinine 1.7 mg/dL (0.8-1.5) H 12/12/17 22:06 Estimated GFR 42 ml/min 12/12/17 22:06 BUN/Creatinine Ratio 31 % 12/12/17 22:06 Glucose 74 mg/dL (75-100) L 12/12/17 22:06 Calcium 7.8 mg/dL (8.4-10.2) L 12/12/17 22:06 Total Bilirubin 28.40 mg/dL (0.1-1.2) H 12/12/17 22:06 Direct Bilirubin 16.7 mg/dL (0-0.2) H 12/12/17 22:06 Indirect Bilirubin 11.7 mg/dL 12/12/17 22:06 AST 429 units/L (5-40) H 12/12/17 22:06 ALT 194 units/L (7-56) H 12/12/17 22:06 Alkaline Phosphatase 137 units/L (35-129) H 12/12/17 22:06 Ammonia 10.0 umol/L (25-60) L 12/12/17 23:50 Total Protein 6.3 g/dL (6.3-8.2) 12/12/17 22:06 Albumin 2.7 g/dL (3.9-5) L 12/12/17 22:06 Albumin/Globulin Ratio 0.7 % 12/12/17 22:06 Lipase 230 units/L (13-60) H 12/12/17 23:35 Urine Color Chasity (Yellow) 12/12/17 Unknown Urine Turbidity Clear (Clear) 12/12/17 Unknown Urine pH 5.0 (5.0-7.0) 12/12/17 Unknown Ur Specific [place] 1.016 (1.003-1.030) 12/12/17 Unknown Urine Protein <15 mg/dl mg/dL (Negative) 12/12/17 Unknown Urine Glucose (UA) Neg mg/dL (Negative) 12/12/17 Unknown Urine Ketones Neg mg/dL (Negative) 12/12/17 Unknown Urine Blood Mod (Negative) 12/12/17 Unknown Urine Nitrite Neg (Negative) 12/12/17 Unknown Urine Bilirubin Mod (Negative) 12/12/17 Unknown Urine Ictotest Positive (Negative) 12/12/17 Unknown Urine Urobilinogen 4.0 mg/dL (<2.0) 12/12/17 Unknown Ur Leukocyte Esterase Tr (Negative) 12/12/17 Unknown Urine WBC (Auto) 11.0 /HPF (0.0-6.0) H 12/12/17 Unknown Urine RBC (Auto) 3.0 /HPF (0.0-6.0) 12/12/17 Unknown U Epithel Cells (Auto) 1.0 /HPF (0-13.0) 12/12/17 Unknown Urine Bacteria (Auto) 2+ /HPF (Negative) 12/12/17 Unknown Urine Mucus Few /HPF 12/12/17 Unknown Acetaminophen < 5.0 ug/mL (10.0-30.0) L 12/12/17 23:39 Hepatitis A IgM Ab Non-reactive (NonReactive) 12/12/17 23:39 Hep Bs Antigen Non-reactive (Negative) 12/12/17 23:39 Hep B Core IgM Ab Non-reactive (NonReactive) 12/12/17 23:39 Hepatitis C Antibody Non-reactive (NonReactive) 12/12/17 23:39
[2017-12-13] MEDS ORDERED: ROCEPHIN/NS 1 GM/50 ML 1 GM/50 ML BAG IV SCH (10:00)
[2017-12-13] MEDS ORDERED: VITAMIN K (ADULT ONLY) SUB-Q NR (10:22)
[2017-12-13] MEDS: SODIUM CHLORIDE FLUSH SYRINGE 10 ML IV SCH ×2 (11:08→23:29)
--- NOTE | 2017-12-13 11:17 | Consultation ---
History of Present Illness - Reason for Consult Consult date: 12/13/17 acute renal failure, chronic renal failure - History of Present Illness This is a 57 year old male who presents to the hospital with a chief complaint of right lower quadrant pain that has been presents for several weeks with associated nausea in them mornings and not being able to eat. On evaluation patient was noted to have elevated liver enzymes. CT of Abdomen/Pelvis was done that revealed Cirrhotic changes of the liver. Mild to moderate enlargement of the spleen. Multiple enlarged upper abdominal lymph nodes. GI has been consulted. Review of renal labs revealed an elevated serum creatinine of 1.7 and an BUN level of 52. Baseline serum creatinine unknown. Patient reports having history of Hypertension and Diabetes Mellitus. We are being consulted for management of this patient's Acute on Chronic Renal Failure. Past History Past Medical History: diabetes, hypertension, liver disease, renal failure Past Surgical History: No surgical history Social history: no significant social history, lives with family. denies: smoking, alcohol abuse Family history: no significant family history Medications and Allergies Allergies Allergy/AdvReac Type Severity Reaction Status Date / Time No Known Allergies Allergy Unverified 12/12/17 21:36 Active Meds: Active Medications Acetaminophen (Tylenol) 650 mg PO Q4H PRN PRN Reason: Pain MILD(1-3)/Fever >100.5/POP Ceftriaxone Sodium 1 gm/ (Sodium Chloride) 20 mls @ 2 mls/min IV Q24HR REPLACED BY [facility] Morphine Sulfate (Morphine) 1 mg IV Q4H PRN PRN Reason: Pain, Moderate (4-6) Ondansetron HCl (Zofran) 4 mg IV Q8H PRN PRN Reason: Nausea And Vomiting Sodium Chloride (Sodium Chloride Flush Syringe 10 Ml) 10 ml IV BID REPLACED BY [facility] Last Admin: 12/13/17 11:08 Dose: 10 ml Sodium Chloride (Sodium Chloride Flush Syringe 10 Ml) 10 ml IV PRN PRN PRN Reason: LINE FLUSH Review of Systems Constitutional: fatigue, no weight loss, no weight gain, no fever, no chills, no sweats, no night sweats Ears, nose, mouth and throat: no ear pain, no ear discharge, no tinnitis, no decreased hearing, no nose pain, no nasal congestion, no nasal discharge Cardiovascular: no chest pain, no rapid/irregular heart beat, no edema, no syncope, no lightheadedness, no shortness of breath Respiratory: no cough, no cough with sputum, no excessive sputum, no hemoptysis , no shortness of breath Gastrointestinal: abdominal pain, nausea, no vomiting, no diarrhea, no constipation, no change in bowel habits, no hematemesis, no coffee ground emesis Genitourinary Male: no dysuria, no hematuria, no flank pain, no discharge, no urinary frequency, no urinary hesitancy, no nocturia, no incontinence Rectal: no pain, no incontinence, no bleeding, no itching, no hemorrhoids, no discharge Musculoskeletal: no neck stiffness, no neck pain, no shooting arm pain, no arm numbness/tingling, no low back pain, no shooting leg pain Integumentary: no rash, no pruritis, no redness, no sores, no wounds, no jaundice Neurological: no transient paralysis, no paralysis, no weakness, no parathesias , no numbness, no tingling, no seizures, no syncope Psychiatric: change in appetite, no anxiety, no memory loss, no change in sleep habits, no sleep disturbances, no insomnia, no hypersomnia Endocrine: no cold intolerance, no heat intolerance, no polyphagia, no excessive thirst, no polydipsia Hematologic/Lymphatic: no easy bruising, no easy bleeding Exam - Vital Signs Vital signs: Vital Signs Temp Pulse Resp BP Pulse Ox 95.3 F L 98 H 22 140/72 98 12/12/17 21:09 12/12/17 21:09 12/12/17 21:09 12/12/17 21:09 12/12/17 21:09 - General Appearance General appearance: well-developed, appears stated age EENT: ATNC, PERRL, hearing intact, vision intact Neck: Present: neck supple, trachea midline Respiratory: Decreased Breath Sounds Heart: regular, S1S2 Gastrointestinal: Present: tenderness, other (Ascites present) Integumentary: warm and dry Neurologic: alert and oriented x3 Musculoskeletal: Present: other (No edema to BLE) Psychiatric: cooperative Results - Lab Results 12/12/17 22:06 12/12/17 22:06 Most recent lab results Calcium 7.8 mg/dL (8.4-10.2) L 12/12/17 22:06 Assessment and Plan - Patient Problems (1) [id number] renal failure Current Visit: Yes Status: Acute Plan to address problem: Renal function reviewed. Serum creatinine 1.7. Baseline serum creatinine unknown. Abdominal ultrasound reviewed- No Hydronephrosis seen Will obtain urine lytes include urine sodium to rule out Hepatorenal Syndrome Start gentle hydration with NS@ 42 ml/hr Avoid Nephrotoxic agents Renally dose medications Obtain daily weights Monitor I/O's Watts present:Yes, tea colored urine noted in watts bag Will monitor renal function closely (2) Cirrhosis of liver Current Visit: Yes Status: Acute Plan to address problem: CTof Abdomen/Pelvis- Cirrhotic changes of the liver. Moderate ascites and mild to moderate enlargement of spleen. Multiple enlarged upper abdominal lymph nodes. Gastroenterology onboard (3) Leukocytosis Current Visit: Yes Status: Acute Plan to address problem: Possibly secondary to UTI- on IV Rocephin (4) UTI (urinary tract infection) Current Visit: Yes Status: Acute Plan to address problem: On IV Rocephin (5) Hypertension Current Visit: Yes Status: Acute Plan to address problem: Blood pressures are stable
[2017-12-13 11:37] LABS: Iron 48 ug/dL (49-181); Total Iron Binding Capacity 168 mcg/dL (250-450)
[2017-12-13] MEDS ORDERED: NACL 0.9% 1000 ML 1,000 ML IV SCH (12:00)
--- NOTE | 2017-12-13 12:05 | Consultation ---
History of Present Illness - Reason for Consult Consult date: 12/13/17 acute renal failure, chronic renal failure - History of Present Illness This is a 57 year old male who presents to the hospital with a chief complaint of right lower quadrant pain that has been presents for several weeks with associated nausea in them mornings and not being able to eat. On evaluation patient was noted to have elevated liver enzymes. CT of Abdomen/Pelvis was done that revealed Cirrhotic changes of the liver. Mild to moderate enlargement of the spleen. Multiple enlarged upper abdominal lymph nodes. GI has been consulted. Review of renal labs revealed an elevated serum creatinine of 1.7 and an BUN level of 52. Baseline serum creatinine unknown. Patient reports having history of Hypertension and Diabetes Mellitus. We are being consulted for management of this patient's Acute on Chronic Renal Failure Past History Past Medical History: diabetes, hypertension, liver disease, renal failure Past Surgical History: No surgical history Social history: no significant social history, lives with family. denies: smoking, alcohol abuse Family history: no significant family history Medications and Allergies Allergies Allergy/AdvReac Type Severity Reaction Status Date / Time No Known Allergies Allergy Unverified 12/12/17 21:36 Active Meds: Active Medications Acetaminophen (Tylenol) 650 mg PO Q4H PRN PRN Reason: Pain MILD(1-3)/Fever >100.5/POP Ceftriaxone Sodium 1 gm/ (Sodium Chloride) 20 mls @ 2 mls/min IV Q24HR [facility] Sodium Chloride (Nacl 0.9% 1000 Ml) 1,000 mls @ 42 mls/hr IV [facility] Morphine Sulfate (Morphine) 1 mg IV Q4H PRN PRN Reason: Pain, Moderate (4-6) Ondansetron HCl (Zofran) 4 mg IV Q8H PRN PRN Reason: Nausea And Vomiting Sodium Chloride (Sodium Chloride Flush Syringe 10 Ml) 10 ml IV BID [facility] Last Admin: 12/13/17 11:08 Dose: 10 ml Sodium Chloride (Sodium Chloride Flush Syringe 10 Ml) 10 ml IV PRN PRN PRN Reason: LINE FLUSH Review of Systems Constitutional: fatigue, poor appetite, no weight loss, no weight gain, no fever , no chills, no sweats, no night sweats Ears, nose, mouth and throat: no deferred, no ear pain, no ear discharge, no tinnitis, no decreased hearing, no nose pain, no nasal congestion, no nasal discharge, no sinus pressure Cardiovascular: no chest pain, no orthopnea, no palpitations, no rapid/ irregular heart beat, no edema, no syncope, no lightheadedness, no shortness of breath Respiratory: no cough, no cough with sputum, no excessive sputum, no hemoptysis , no shortness of breath, no dyspnea on exertion Gastrointestinal: abdominal pain, nausea, no vomiting, no diarrhea, no constipation, no change in bowel habits, no hematemesis, no coffee ground emesis Genitourinary Male: no hematuria, no flank pain, no discharge, no urinary frequency, no urinary hesitancy, no nocturia, no incontinence, no erectile dysfunction Rectal: no pain, no incontinence, no bleeding, no itching, no hemorrhoids, no discharge Musculoskeletal: no neck pain, no shooting arm pain, no arm numbness/tingling, no low back pain, no shooting leg pain Integumentary: no rash, no pruritis, no redness, no sores, no wounds, no jaundice, no boils Neurological: no head injury, no paralysis, no weakness, no parathesias, no numbness, no tingling, no seizures, no syncope, no tremors Psychiatric: change in appetite, no anxiety, no memory loss, no change in sleep habits, no sleep disturbances, no insomnia, no hypersomnia Endocrine: no cold intolerance, no heat intolerance, no polyphagia, no excessive thirst, no polydipsia, no polyuria, no nocturia Hematologic/Lymphatic: no easy bruising, no easy bleeding, no lymphadenopathy, no lymphedema Exam - Vital Signs Vital signs: Vital Signs Temp Pulse Resp BP Pulse Ox 95.3 F L 98 H 22 140/72 98 12/12/17 21:09 12/12/17 21:09 12/12/17 21:09 12/12/17 21:09 12/12/17 21:09 - General Appearance General appearance: well-developed, fatigue EENT: ATNC, PERRL, hearing intact, vision intact Neck: Present: neck supple, trachea midline Respiratory: Decreased Breath Sounds Heart: regular, S1S2 Gastrointestinal: Present: normoactive bowel sounds, other (Ascites) Integumentary: warm and dry Neurologic: alert and oriented x3 Musculoskeletal: Present: other (No edema to BLE) Psychiatric: cooperative Results - Lab Results 12/12/17 22:06 12/12/17 22:06 Most recent lab results Calcium 7.8 mg/dL (8.4-10.2) L 12/12/17 22:06 Assessment and Plan - Patient Problems (1) [id number] renal failure Current Visit: Yes Status: Acute Plan to address problem: Renal function reviewed. Serum creatinine 1.7. Baseline serum creatinine unknown. Abdominal ultrasound reviewed- No Hydronephrosis seen Will obtain urine lytes include urine sodium to rule out Hepatorenal Syndrome Start Normal Saline with 5% IV Albumin for a total of 2 liters over 48 hours- discussed with pharmacy [employer] would like to perform MRI with contrast- MRI with contrast poses a risk for Nephrogenic Systemic Fibrosis due to the use of Gadolinium in patients whose GFR is less than 40 ml/min vs the use of Iodine contrast which poses the risk of Contrast Induced Nephropathy which can cause further deterioration of renal function. If patient continues to be oliguric then will need to avoid Gadolinium. The risks were explained to patient. Avoid Nephrotoxic agents Renally dose medications Obtain daily weights Monitor I/O's Watts present:Yes, tea colored urine noted in watts bag Will monitor renal function closely Renal plan reviewed with Dr. Begum (2) Cirrhosis of liver Current Visit: Yes Status: Acute Plan to address problem: CTof Abdomen/Pelvis- Cirrhotic changes of the liver. Moderate ascites and mild to moderate enlargement of spleen. Multiple enlarged upper abdominal lymph nodes. Gastroenterology onboard (3) Leukocytosis Current Visit: Yes Status: Acute Plan to address problem: Possibly secondary to UTI- on IV Rocephin (4) UTI (urinary tract infection) Current Visit: Yes Status: Acute Plan to address problem: On IV Rocephin (5) Hypertension Current Visit: Yes Status: Acute Plan to address problem: Blood pressures are stable
[2017-12-13] MEDS: cefTRIAXone 1 GM in NACL 0.9% 20 ML IV SCH (13:00)
[2017-12-13] MEDS: ALBUTEIN IV SCH (14:57)
[2017-12-13 18:05] LABS: Creatinine,Urine 199.9 mg/dL (0.1-20.0)
[2017-12-14] MEDS: ALBUTEIN IV SCH ×2 (04:49→10:03)
[2017-12-14 07:22] LABS: Hematocrit 34.9 % (35.5-45.6); Mean Corpuscular HGB Conc 34 % (32-34); Mean Corpuscular Hemoglobin 31 pg (28-32); Mean Corpuscular Volume 91 fl (84-94); Platelet Count 173 K/mm3 (140-440); Red Blood Count 3.84 M/mm3 (3.65-5.03)
[2017-12-14 07:26] LABS: Red Cell Distribution Width 23.1 % (13.2-15.2)
[2017-12-14 07:33] LABS: INR 1.61 (0.87-1.13)
[2017-12-14 07:50] LABS: Albumin 2.5 g/dL (3.9-5); Calcium 7.7 mg/dL (8.4-10.2)
[2017-12-14 08:47] LABS: Basophils % (Manual) 0 % (0.0-1.8); Total Cells Counted 100
[2017-12-14 08:48] LABS: Anisocytosis 1+; Ovalocytes 1+; Poikilocytosis 1+; Target Cells 1+
[2017-12-14 08:49] LABS: Platelet Estimate Consistent w Auto
--- NOTE | 2017-12-14 09:58 | Progress Note ---
Assessment and Plan (1) [id number] renal failure Current Visit: Yes Status: Acute Plan to address problem: Cr cont to rise, currently anuric, s/p 5% NS challenge urine lytes consistent with HRS patient currently at increased risk for nephrogenic systemic fibrosis with using Alli. CT with contrast is preferable, it does come with risk of contrast induced nephropathy but patient most likely will require dialysis soon Avoid Nephrotoxic agents Renally dose medications Obtain daily weights Monitor I/O's Tate present:Yes (2) Cirrhosis of liver Current Visit: Yes Status: Acute Plan to address problem: CTof Abdomen/Pelvis- Cirrhotic changes of the liver. Moderate ascites and mild to moderate enlargement of spleen. Multiple enlarged upper abdominal lymph nodes. Gastroenterology onboard (3) Leukocytosis Current Visit: Yes Status: Acute Plan to address problem: Possibly secondary to UTI- on IV Rocephin (4) UTI (urinary tract infection) Current Visit: Yes Status: Acute Plan to address problem: On IV Rocephin (5) Hypertension Current Visit: Yes Status: Acute Plan to address problem: Blood pressures are stable Subjective Date of service: 12/14/17 Principal diagnosis: acute renal failure Interval history: cont to feel weak Objective - Vital Signs Vital signs: Vital Signs - 12hr 12/13/17 12/13/17 12/14/17 22:00 23:55 01:20 Temperature 98.4 F 97.9 F Pulse Rate 90 91 H Respiratory 20 20 Rate Blood Pressure 130/65 125/68 O2 Sat by Pulse 94 95 Oximetry 12/14/17 07:43 Temperature 98.6 F Pulse Rate 93 H Respiratory 19 Rate Blood Pressure 133/72 O2 Sat by Pulse 95 Oximetry - General Appearance General appearance: well-developed, well-nourished EENT: ATNC, PERRL, sclera incterus Neck: no JVD, no carotid bruit Respiratory: Present: Clear to Ascultation. Absent: Rales, Ronchi Cardiology: regular, S1S2 Gastrointestinal: normoactive bowel sounds, tenderness, distended Integumentary: no rash, warm and dry Neurologic: no focal deficit, alert and oriented x3 Musculoskeletal: other (trace pitting edema in BLE) Psychiatric: mood/affect appropriate, cooperative - Lab 12/14/17 06:55 12/14/17 06:55 Most recent lab results Calcium 7.7 mg/dL (8.4-10.2) L 12/14/17 06:55 Phosphorus 3.60 mg/dL (2.5-4.5) 12/14/17 06:55 Urine Creatinine 199.9 mg/dL (0.1-20.0) H 12/13/17 17:31 Urine Sodium 10 mmol/L 12/13/17 17:31 Urine Total Protein 44 mg/dL (5-11.8) H 12/13/17 17:31
--- NOTE | 2017-12-14 10:08 | Gastroenterology Progress Note ---
Assessment and Plan - Patient Problems (1) Ascites Current Visit: Yes Status: Acute (2) Cirrhosis of liver Current Visit: Yes Status: Acute Plan to address problem: Probable cirrhosis of the liver, etiology unclear. Rule out superimposed drug induced liver injury. Patient was taking a concoction of micronesian herbs. T. bili decreased from 28-->24. INR not improved. Cr increased. May need abdominal paracentesis if ascites increases. Ferritin 500. Copper studies and autoimmune studies are pending. Hepatitis A, B and C are negative. AFP pending. MELD score is high, 31. MRI on hold due to renal dysfunction, although no focal lesions on u/s or non contrasted CT scan. Will follow (3) Elevated LFTs Current Visit: Yes Status: Acute (4) Jaundice Current Visit: Yes Status: Acute (5) Renal insufficiency Current Visit: Yes Status: Acute Subjective Date of service: 12/14/17 Principal diagnosis: cirrhosis with liver failure Interval history: The patient reports mild abdominal discomfort. Objective - Constitutional Vitals: Temp Pulse Resp BP Pulse Ox 98.6 F 93 H 19 133/72 95 12/14/17 07:43 12/14/17 07:43 12/14/17 07:43 12/14/17 07:43 12/14/17 07:43 General appearance: no acute distress - EENT ENT: hearing intact, clear oral mucosa, dentition normal - Neck Neck: supple, normal ROM - Respiratory Respiratory effort: normal Respiratory: bilateral: CTA - Cardiovascular Rhythm: regular - Gastrointestinal General gastrointestinal: Present: soft, non-tender, distended (Mild distention) , normal bowel sounds - Neurologic Neurological: alert and oriented x3 - Psychiatric Psychiatric: appropriate mood/affect, intact judgment & insight - Labs CBC & Chem 7: 12/14/17 06:55 12/14/17 06:55 Labs: Laboratory Results - last 24 hr 12/13/17 12/13/17 12/13/17 10:44 10:44 17:31 WBC RBC Hgb Hct MCV MCH MCHC RDW Plt Count Add Manual Diff Total Counted Seg Neuts % (Manual) Band Neutrophils % Lymphocytes % (Manual) Reactive Lymphs % (Man) Monocytes % (Manual) Eosinophils % (Manual) Basophils % (Manual) Metamyelocytes % Myelocytes % Promyelocytes % Blast Cells % Nucleated RBC % Seg Neutrophils # Man Band Neutrophils # Lymphocytes # (Manual) Abs React Lymphs (Man) Monocytes # (Manual) Eosinophils # (Manual) Basophils # (Manual) Metamyelocytes # Myelocytes # Promyelocytes # Blast Cells # WBC Morphology Hypersegmented Neuts Hyposegmented Neuts Hypogranular Neuts Smudge Cells Toxic Granulation Toxic Vacuolation Dohle Bodies Pelger-Huet Anomaly Phyllis Rods Platelet Estimate Clumped Platelets Plt Clumps, EDTA Large Platelets Giant Platelets Platelet Satelliting Plt Morphology Comment RBC Morphology Dimorphic RBCs Polychromasia Hypochromasia Poikilocytosis Anisocytosis Microcytosis Macrocytosis Spherocytes Pappenheimer Bodies Sickle Cells Target Cells Tear Drop Cells Ovalocytes Helmet Cells [place] Bodies [place] Rings Kirksey Cells Bite Cells Crenated Cell Elliptocytes Acanthocytes (Spur) Rouleaux Hemoglobin C Crystals Schistocytes Malaria parasites Pedro Bodies Hem Pathologist Commnt PT INR Sodium Potassium Chloride Carbon Dioxide Anion Gap BUN Creatinine Estimated GFR BUN/Creatinine Ratio Glucose Osmolality Calcium Phosphorus Iron 48 L TIBC 168 L Ferritin 508.4 H Total Bilirubin AST ALT Alkaline Phosphatase Total Protein Albumin Albumin/Globulin Ratio Urine Eosinophils Urine Creatinine 199.9 H Urine Sodium 10 Urine Total Protein 44 H 12/13/17 12/14/17 12/14/17 17:31 06:55 06:55 WBC RBC Hgb Hct MCV MCH MCHC RDW Plt Count Add Manual Diff Total Counted Seg Neuts % (Manual) Band Neutrophils % Lymphocytes % (Manual) Reactive Lymphs % (Man) Monocytes % (Manual) Eosinophils % (Manual) Basophils % (Manual) Metamyelocytes % Myelocytes % Promyelocytes % Blast Cells % Nucleated RBC % Seg Neutrophils # Man Band Neutrophils # Lymphocytes # (Manual) Abs React Lymphs (Man) Monocytes # (Manual) Eosinophils # (Manual) Basophils # (Manual) Metamyelocytes # Myelocytes # Promyelocytes # Blast Cells # WBC Morphology Hypersegmented Neuts Hyposegmented Neuts Hypogranular Neuts Smudge Cells Toxic Granulation Toxic Vacuolation Dohle Bodies Pelger-Huet Anomaly Phyllis Rods Platelet Estimate Clumped Platelets Plt Clumps, EDTA Large Platelets Giant Platelets Platelet Satelliting Plt Morphology Comment RBC Morphology Dimorphic RBCs Polychromasia Hypochromasia Poikilocytosis Anisocytosis Microcytosis Macrocytosis Spherocytes Pappenheimer Bodies Sickle Cells Target Cells Tear Drop Cells Ovalocytes Helmet Cells [place] Bodies [place] Rings Brijesh Cells Bite Cells Crenated Cell Elliptocytes Acanthocytes (Spur) Rouleaux Hemoglobin C Crystals Schistocytes Malaria parasites Pedro Bodies Hem Pathologist Commnt PT 20.1 H INR 1.61 H Sodium 134 L Potassium 4.0 Chloride 95.5 L Carbon Dioxide 22 Anion Gap 21 BUN 68 H Creatinine 2.1 H Estimated GFR 40 BUN/Creatinine Ratio 32 Glucose 91 Osmolality Calcium 7.7 L Phosphorus Iron TIBC Ferritin Total Bilirubin 23.90 H AST 283 H ALT 127 H Alkaline Phosphatase 103 Total Protein 5.4 L Albumin 2.5 L Albumin/Globulin Ratio 0.9 Urine Eosinophils None seen Urine Creatinine Urine Sodium Urine Total Protein 12/14/17 12/14/17 12/14/17 06:55 06:55 06:55 WBC 15.1 H RBC 3.84 Hgb 12.0 Hct 34.9 L D MCV 91 MCH 31 MCHC 34 RDW 23.1 H Plt Count 173 Add Manual Diff Complete Total Counted 100 Seg Neuts % (Manual) 92.0 H Band Neutrophils % 0 Lymphocytes % (Manual) 3.0 L Reactive Lymphs % (Man) 0 Monocytes % (Manual) 2.0 Eosinophils % (Manual) 3.0 Basophils % (Manual) 0 Metamyelocytes % 0 Myelocytes % 0 Promyelocytes % 0 Blast Cells % 0 Nucleated RBC % Not Reportable Seg Neutrophils # Man 13.9 H Band Neutrophils # 0.0 Lymphocytes # (Manual) 0.5 L Abs React Lymphs (Man) 0.0 Monocytes # (Manual) 0.3 Eosinophils # (Manual) 0.5 H Basophils # (Manual) 0.0 Metamyelocytes # 0.0 Myelocytes # 0.0 Promyelocytes # 0.0 Blast Cells # 0.0 WBC Morphology Not Reportable Hypersegmented Neuts Not Reportable Hyposegmented Neuts Not Reportable Hypogranular Neuts Not Reportable Smudge Cells Not Reportable Toxic Granulation Not Reportable Toxic Vacuolation Not Reportable Dohle Bodies Not Reportable Pelger-Huet Anomaly Not Reportable Phyllis Rods Not Reportable Platelet Estimate Consistent w auto Clumped Platelets Not Reportable Plt Clumps, EDTA Not Reportable Large Platelets Not Reportable Giant Platelets Not Reportable Platelet Satelliting Not Reportable Plt Morphology Comment Not Reportable RBC Morphology Not Reportable Dimorphic RBCs Not Reportable Polychromasia Not Reportable Hypochromasia Not Reportable Poikilocytosis 1+ Anisocytosis 1+ Microcytosis 1+ Macrocytosis Not Reportable Spherocytes Not Reportable Pappenheimer Bodies Not Reportable Sickle Cells Not Reportable Target Cells 1+ Tear Drop Cells Not Reportable Ovalocytes 1+ Helmet Cells Not Reportable [place] Bodies Not Reportable [place] Rings Not Reportable Brijesh Cells Not Reportable Bite Cells Not Reportable Crenated Cell Not Reportable Elliptocytes Not Reportable Acanthocytes (Spur) Not Reportable Rouleaux Not Reportable Hemoglobin C Crystals Not Reportable Schistocytes Not Reportable Malaria parasites Not Reportable Pedro Bodies Not Reportable Hem Pathologist Commnt No PT INR Sodium Potassium Chloride Carbon Dioxide Anion Gap BUN Creatinine Estimated GFR BUN/Creatinine Ratio Glucose Osmolality 304 Calcium Phosphorus 3.60 Iron TIBC Ferritin Total Bilirubin AST ALT Alkaline Phosphatase Total Protein Albumin Albumin/Globulin Ratio Urine Eosinophils Urine Creatinine Urine Sodium Urine Total Protein Laboratory Results - last 24 hr 12/13/17 12/13/17 12/13/17 10:44 10:44 17:31 WBC RBC Hgb Hct MCV MCH MCHC RDW Plt Count Add Manual Diff Total Counted Seg Neuts % (Manual) Band Neutrophils % Lymphocytes % (Manual) Reactive Lymphs % (Man) Monocytes % (Manual) Eosinophils % (Manual) Basophils % (Manual) Metamyelocytes % Myelocytes % Promyelocytes % Blast Cells % Nucleated RBC % Seg Neutrophils # Man Band Neutrophils # Lymphocytes # (Manual) Abs React Lymphs (Man) Monocytes # (Manual) Eosinophils # (Manual) Basophils # (Manual) Metamyelocytes # Myelocytes # Promyelocytes # Blast Cells # WBC Morphology Hypersegmented Neuts Hyposegmented Neuts Hypogranular Neuts Smudge Cells Toxic Granulation Toxic Vacuolation Dohle Bodies Pelger-Huet Anomaly Phyllis Rods Platelet Estimate Clumped Platelets Plt Clumps, EDTA Large Platelets Giant Platelets Platelet Satelliting Plt Morphology Comment RBC Morphology Dimorphic RBCs Polychromasia Hypochromasia Poikilocytosis Anisocytosis Microcytosis Macrocytosis Spherocytes Pappenheimer Bodies Sickle Cells Target Cells Tear Drop Cells Ovalocytes Helmet Cells [place] Bodies [place] Rings [place]sey Cells Bite Cells Crenated Cell Elliptocytes Acanthocytes (Spur) Rouleaux Hemoglobin C Crystals Schistocytes Malaria parasites Pedro Bodies Hem Pathologist Commnt PT INR Sodium Potassium Chloride Carbon Dioxide Anion Gap BUN Creatinine Estimated GFR BUN/Creatinine Ratio Glucose Osmolality Calcium Phosphorus Iron 48 L TIBC 168 L Ferritin 508.4 H Total Bilirubin AST ALT Alkaline Phosphatase Total Protein Albumin Albumin/Globulin Ratio Urine Eosinophils Urine Creatinine 199.9 H Urine Sodium 10 Urine Total Protein 44 H 12/13/17 12/14/17 12/14/17 17:31 06:55 06:55 WBC RBC Hgb Hct MCV MCH MCHC RDW Plt Count Add Manual Diff Total Counted Seg Neuts % (Manual) Band Neutrophils % Lymphocytes % (Manual) Reactive Lymphs % (Man) Monocytes % (Manual) Eosinophils % (Manual) Basophils % (Manual) Metamyelocytes % Myelocytes % Promyelocytes % Blast Cells % Nucleated RBC % Seg Neutrophils # Man Band Neutrophils # Lymphocytes # (Manual) Abs React Lymphs (Man) Monocytes # (Manual) Eosinophils # (Manual) Basophils # (Manual) Metamyelocytes # Myelocytes # Promyelocytes # Blast Cells # WBC Morphology Hypersegmented Neuts Hyposegmented Neuts Hypogranular Neuts Smudge Cells Toxic Granulation Toxic Vacuolation Dohle Bodies Pelger-Huet Anomaly Phyllis Rods Platelet Estimate Clumped Platelets Plt Clumps, EDTA Large Platelets Giant Platelets Platelet Satelliting Plt Morphology Comment RBC Morphology Dimorphic RBCs Polychromasia Hypochromasia Poikilocytosis Anisocytosis Microcytosis Macrocytosis Spherocytes Pappenheimer Bodies Sickle Cells Target Cells Tear Drop Cells Ovalocytes Helmet Cells [place] Bodies [place] Rings Kirksey Cells Bite Cells Crenated Cell Elliptocytes Acanthocytes (Spur) Rouleaux Hemoglobin C Crystals Schistocytes Malaria parasites Pedro Bodies Hem Pathologist Commnt PT 20.1 H INR 1.61 H Sodium 134 L Potassium 4.0 Chloride 95.5 L Carbon Dioxide 22 Anion Gap 21 BUN 68 H Creatinine 2.1 H Estimated GFR 40 BUN/Creatinine Ratio 32 Glucose 91 Osmolality Calcium 7.7 L Phosphorus Iron TIBC Ferritin Total Bilirubin 23.90 H AST 283 H ALT 127 H Alkaline Phosphatase 103 Total Protein 5.4 L Albumin 2.5 L Albumin/Globulin Ratio 0.9 Urine Eosinophils None seen Urine Creatinine Urine Sodium Urine Total Protein 12/14/17 12/14/17 12/14/17 06:55 06:55 06:55 WBC 15.1 H RBC 3.84 Hgb 12.0 Hct 34.9 L D MCV 91 MCH 31 MCHC 34 RDW 23.1 H Plt Count 173 Add Manual Diff Complete Total Counted 100 Seg Neuts % (Manual) 92.0 H Band Neutrophils % 0 Lymphocytes % (Manual) 3.0 L Reactive Lymphs % (Man) 0 Monocytes % (Manual) 2.0 Eosinophils % (Manual) 3.0 Basophils % (Manual) 0 Metamyelocytes % 0 Myelocytes % 0 Promyelocytes % 0 Blast Cells % 0 Nucleated RBC % Not Reportable Seg Neutrophils # Man 13.9 H Band Neutrophils # 0.0 Lymphocytes # (Manual) 0.5 L Abs React Lymphs (Man) 0.0 Monocytes # (Manual) 0.3 Eosinophils # (Manual) 0.5 H Basophils # (Manual) 0.0 Metamyelocytes # 0.0 Myelocytes # 0.0 Promyelocytes # 0.0 Blast Cells # 0.0 WBC Morphology Not Reportable Hypersegmented Neuts Not Reportable Hyposegmented Neuts Not Reportable Hypogranular Neuts Not Reportable Smudge Cells Not Reportable Toxic Granulation Not Reportable Toxic Vacuolation Not Reportable Dohle Bodies Not Reportable Pelger-Huet Anomaly Not Reportable Phyllis Rods Not Reportable Platelet Estimate Consistent w auto Clumped Platelets Not Reportable Plt Clumps, EDTA Not Reportable Large Platelets Not Reportable Giant Platelets Not Reportable Platelet Satelliting Not Reportable Plt Morphology Comment Not Reportable RBC Morphology Not Reportable Dimorphic RBCs Not Reportable Polychromasia Not Reportable Hypochromasia Not Reportable Poikilocytosis 1+ Anisocytosis 1+ Microcytosis 1+ Macrocytosis Not Reportable Spherocytes Not Reportable Pappenheimer Bodies Not Reportable Sickle Cells Not Reportable Target Cells 1+ Tear Drop Cells Not Reportable Ovalocytes 1+ Helmet Cells Not Reportable [place] Bodies Not Reportable [place] Rings Not Reportable Brijesh Cells Not Reportable Bite Cells Not Reportable Crenated Cell Not Reportable Elliptocytes Not Reportable Acanthocytes (Spur) Not Reportable Rouleaux Not Reportable Hemoglobin C Crystals Not Reportable Schistocytes Not Reportable Malaria parasites Not Reportable Pedro Bodies Not Reportable Hem Pathologist Commnt No PT INR Sodium Potassium Chloride Carbon Dioxide Anion Gap BUN Creatinine Estimated GFR BUN/Creatinine Ratio Glucose Osmolality 304 Calcium Phosphorus 3.60 Iron TIBC Ferritin Total Bilirubin AST ALT Alkaline Phosphatase Total Protein Albumin Albumin/Globulin Ratio Urine Eosinophils Urine Creatinine Urine Sodium Urine Total Protein
[2017-12-14] MEDS: SODIUM CHLORIDE FLUSH SYRINGE 10 ML IV SCH ×2 (10:10→22:14)
[2017-12-14] MEDS: cefTRIAXone 1 GM in NACL 0.9% 20 ML IV SCH (10:43)
--- NOTE | 2017-12-14 18:26 | Progress Note ---
Assessment and Plan Assessment and plan: --Cirrhosis liver; workup is in progress Advanced stage liver cirrhosis liver, Hepatitis panel negative, Patient may need liver biopsy, Continue supportive care, IV diuretics, Recommend MRI with contrast, able to obtain in view of renal failure --Acute on chronic kidney disease stage III; worsening renal function Closely monitor renal function, avoid nephrotoxic medications Nephrology following --Coagulopathy; secondary to cirrhosis, closely monitor, consider vitamin K as needed --Large ascites; continue supportive care, oxygen as needed, paracentesis if needed after MRI -- urinary tract infection, present on admission, Continue empiric antibiotics, follow cultures --Severe hypoalbuminemia, protein calorie malnutrition, nutrition supplements and supportive care --DVT prophylaxis with SCD and no pharmacologic anticoagulation in view of coagulopathy and cirrhosis Closely monitor the patient and adjust the management as needed Consults and recommendations noted and appreciated Plan of care reviewed with the patient and family member at the bedside as well as the nurse History Interval history: Patient seen and examined medical records reviewed Patient feels slightly better Denies any nausea or vomiting Cirrhosis of liver workup is in progress Alert awake oriented 3 not in acute distress Vital signs reviewed Hospitalist Physical - Constitutional Vitals: Temp Pulse Resp BP Pulse Ox 98.3 F 91 H 20 145/62 95 12/14/17 15:14 12/14/17 15:14 12/14/17 15:14 12/14/17 15:14 12/14/17 15:14 General appearance: Present: no acute distress, well-nourished, obese - EENT Eyes: Present: PERRL, EOM intact - Neck Neck: Present: supple, normal ROM - Respiratory Respiratory effort: normal Respiratory: bilateral: diminished, rales, negative: rhonchi, wheezing - Cardiovascular Rhythm: regular Heart Sounds: Present: S1 & S2 - Extremities Extremities: no ischemia, No edema - Abdominal General gastrointestinal: soft, non-tender, distended, normal bowel sounds - Integumentary Integumentary: Present: clear, warm, jaundice - Psychiatric Psychiatric: appropriate mood/affect, cooperative - Neurologic Neurologic: CNII-XII intact, moves all extremities Results - Labs CBC & Chem 7: 12/14/17 06:55 12/14/17 06:55 Labs: Laboratory Last Values WBC 15.1 K/mm3 (4.5-11.0) H 12/14/17 06:55 RBC 3.84 M/mm3 (3.65-5.03) 12/14/17 06:55 Hgb 12.0 gm/dl (11.8-15.2) 12/14/17 06:55 Hct 34.9 % (35.5-45.6) L D 12/14/17 06:55 MCV 91 fl (84-94) 12/14/17 06:55 MCH 31 pg (28-32) 12/14/17 06:55 MCHC 34 % (32-34) 12/14/17 06:55 RDW 23.1 % (13.2-15.2) H 12/14/17 06:55 Plt Count 173 K/mm3 (140-440) 12/14/17 06:55 Add Manual Diff Complete 12/14/17 06:55 Total Counted 100 12/14/17 06:55 Seg Neuts % (Manual) 92.0 % (40.0-70.0) H 12/14/17 06:55 Band Neutrophils % 0 % 12/14/17 06:55 Lymphocytes % (Manual) 3.0 % (13.4-35.0) L 12/14/17 06:55 Reactive Lymphs % (Man) 0 % 12/14/17 06:55 Monocytes % (Manual) 2.0 % (0.0-7.3) 12/14/17 06:55 Eosinophils % (Manual) 3.0 % (0.0-4.3) 12/14/17 06:55 Basophils % (Manual) 0 % (0.0-1.8) 12/14/17 06:55 Metamyelocytes % 0 % 12/14/17 06:55 Myelocytes % 0 % 12/14/17 06:55 Promyelocytes % 0 % 12/14/17 06:55 Blast Cells % 0 % 12/14/17 06:55 Nucleated RBC % Not Reportable 12/14/17 06:55 Seg Neutrophils # Man 13.9 K/mm3 (1.8-7.7) H 12/14/17 06:55 Band Neutrophils # 0.0 K/mm3 12/14/17 06:55 Lymphocytes # (Manual) 0.5 K/mm3 (1.2-5.4) L 12/14/17 06:55 Abs React Lymphs (Man) 0.0 K/mm3 12/14/17 06:55 Monocytes # (Manual) 0.3 K/mm3 (0.0-0.8) 12/14/17 06:55 Eosinophils # (Manual) 0.5 K/mm3 (0.0-0.4) H 12/14/17 06:55 Basophils # (Manual) 0.0 K/mm3 (0.0-0.1) 12/14/17 06:55 Metamyelocytes # 0.0 K/mm3 12/14/17 06:55 Myelocytes # 0.0 K/mm3 12/14/17 06:55 Promyelocytes # 0.0 K/mm3 12/14/17 06:55 Blast Cells # 0.0 K/mm3 12/14/17 06:55 WBC Morphology Not Reportable 12/14/17 06:55 Hypersegmented Neuts Not Reportable 12/14/17 06:55 Hyposegmented Neuts Not Reportable 12/14/17 06:55 Hypogranular Neuts Not Reportable 12/14/17 06:55 Smudge Cells Not Reportable 12/14/17 06:55 Toxic Granulation Not Reportable 12/14/17 06:55 Toxic Vacuolation Not Reportable 12/14/17 06:55 Dohle Bodies Not Reportable 12/14/17 06:55 Pelger-Huet Anomaly Not Reportable 12/14/17 06:55 Phyllis Rods Not Reportable 12/14/17 06:55 Platelet Estimate Consistent w auto 12/14/17 06:55 Clumped Platelets Not Reportable 12/14/17 06:55 Plt Clumps, EDTA Not Reportable 12/14/17 06:55 Large Platelets Not Reportable 12/14/17 06:55 Giant Platelets Not Reportable 12/14/17 06:55 Platelet Satelliting Not Reportable 12/14/17 06:55 Plt Morphology Comment Not Reportable 12/14/17 06:55 RBC Morphology Not Reportable 12/14/17 06:55 Dimorphic RBCs Not Reportable 12/14/17 06:55 Polychromasia Not Reportable 12/14/17 06:55 Hypochromasia Not Reportable 12/14/17 06:55 Poikilocytosis 1+ 12/14/17 06:55 Anisocytosis 1+ 12/14/17 06:55 Microcytosis 1+ 12/14/17 06:55 Macrocytosis Not Reportable 12/14/17 06:55 Spherocytes Not Reportable 12/14/17 06:55 Pappenheimer Bodies Not Reportable 12/14/17 06:55 Sickle Cells Not Reportable 12/14/17 06:55 Target Cells 1+ 12/14/17 06:55 Tear Drop Cells Not Reportable 12/14/17 06:55 Ovalocytes 1+ 12/14/17 06:55 Helmet Cells Not Reportable 12/14/17 06:55 [place] Bodies Not Reportable 12/14/17 06:55 [place] Rings Not Reportable 12/14/17 06:55 Brijesh Cells Not Reportable 12/14/17 06:55 Bite Cells Not Reportable 12/14/17 06:55 Crenated Cell Not Reportable 12/14/17 06:55 Elliptocytes Not Reportable 12/14/17 06:55 Acanthocytes (Spur) Not Reportable 12/14/17 06:55 Rouleaux Not Reportable 12/14/17 06:55 Hemoglobin C Crystals Not Reportable 12/14/17 06:55 Schistocytes Not Reportable 12/14/17 06:55 Malaria parasites Not Reportable 12/14/17 06:55 Pedro Bodies Not Reportable 12/14/17 06:55 Hem Pathologist Commnt No 12/14/17 06:55 PT 20.1 Sec. (12.2-14.9) H 12/14/17 06:55 INR 1.61 (0.87-1.13) H 12/14/17 06:55 APTT 34.8 Sec. (24.2-36.6) 12/12/17 22:06 Sodium 134 mmol/L (137-145) L 12/14/17 06:55 Potassium 4.0 mmol/L (3.6-5.0) 12/14/17 06:55 Chloride 95.5 mmol/L (98-107) L 12/14/17 06:55 Carbon Dioxide 22 mmol/L (22-30) 12/14/17 06:55 Anion Gap 21 mmol/L 12/14/17 06:55 BUN 68 mg/dL (9-20) H 12/14/17 06:55 Creatinine 2.1 mg/dL (0.8-1.5) H 12/14/17 06:55 Estimated GFR 40 ml/min 12/14/17 06:55 BUN/Creatinine Ratio 32 % 12/14/17 06:55 Glucose 91 mg/dL (75-100) 12/14/17 06:55 Osmolality 304 Mosm/kg 12/14/17 06:55 Calcium 7.7 mg/dL (8.4-10.2) L 12/14/17 06:55 Phosphorus 3.60 mg/dL (2.5-4.5) 12/14/17 06:55 Iron 48 ug/dL (49-181) L 12/13/17 10:44 TIBC 168 mcg/dL (250-450) L 12/13/17 10:44 Ferritin 508.4 ng/mL (13.0-400.0) H 12/13/17 10:44 Total Bilirubin 23.90 mg/dL (0.1-1.2) H 12/14/17 06:55 Direct Bilirubin 16.7 mg/dL (0-0.2) H 12/12/17 22:06 Indirect Bilirubin 11.7 mg/dL 12/12/17 22:06 AST 283 units/L (5-40) H 12/14/17 06:55 ALT 127 units/L (7-56) H 12/14/17 06:55 Alkaline Phosphatase 103 units/L (35-129) 12/14/17 06:55 Ammonia 10.0 umol/L (25-60) L 12/12/17 23:50 Total Protein 5.4 g/dL (6.3-8.2) L 12/14/17 06:55 Albumin 2.5 g/dL (3.9-5) L 12/14/17 06:55 Albumin/Globulin Ratio 0.9 % 12/14/17 06:55 Lipase 230 units/L (13-60) H 12/12/17 23:35 Urine Color Chasity (Yellow) 12/12/17 Unknown Urine Turbidity Clear (Clear) 12/12/17 Unknown Urine pH 5.0 (5.0-7.0) 12/12/17 Unknown Ur Specific [place] 1.016 (1.003-1.030) 12/12/17 Unknown Urine Protein <15 mg/dl mg/dL (Negative) 12/12/17 Unknown Urine Glucose (UA) Neg mg/dL (Negative) 12/12/17 Unknown Urine Ketones Neg mg/dL (Negative) 12/12/17 Unknown Urine Blood Mod (Negative) 12/12/17 Unknown Urine Nitrite Neg (Negative) 12/12/17 Unknown Urine Bilirubin Mod (Negative) 12/12/17 Unknown Urine Ictotest Positive (Negative) 12/12/17 Unknown Urine Urobilinogen 4.0 mg/dL (<2.0) 12/12/17 Unknown Ur Leukocyte Esterase Tr (Negative) 12/12/17 Unknown Urine WBC (Auto) 11.0 /HPF (0.0-6.0) H 12/12/17 Unknown Urine RBC (Auto) 3.0 /HPF (0.0-6.0) 12/12/17 Unknown U Epithel Cells (Auto) 1.0 /HPF (0-13.0) 12/12/17 Unknown Urine Bacteria (Auto) 2+ /HPF (Negative) 12/12/17 Unknown Urine Mucus Few /HPF 12/12/17 Unknown Urine Eosinophils None seen (None Seen) 12/13/17 17:31 Urine Creatinine 199.9 mg/dL (0.1-20.0) H 12/13/17 17:31 Urine Sodium 10 mmol/L 12/13/17 17:31 Urine Total Protein 44 mg/dL (5-11.8) H 12/13/17 17:31 Acetaminophen < 5.0 ug/mL (10.0-30.0) L 12/12/17 23:39 Hepatitis A IgM Ab Non-reactive (NonReactive) 12/12/17 23:39 Hep Bs Antigen Non-reactive (Negative) 12/12/17 23:39 Hep B Core IgM Ab Non-reactive (NonReactive) 12/12/17 23:39 Hepatitis C Antibody Non-reactive (NonReactive) 12/12/17 23:39
[2017-12-15] MEDS: ALBUTEIN IV SCH ×2 (00:38→13:49)
--- NOTE | 2017-12-15 11:28 | Progress Note ---
Assessment and Plan Assessment and plan: --Constipation; advised stool softeners, enema if no improvement --Cirrhosis liver; workup is in progress Advanced stage liver cirrhosis liver, Hepatitis panel negative, Patient may need liver biopsy, IV diuretics, Recommended MRI with contrast, unable to obtain in view of renal failure --Acute on chronic kidney disease stage III; worsening renal function Closely monitor renal function, avoid nephrotoxic medications, management per Nephrology --Coagulopathy; secondary to cirrhosis, closely monitor, consider vitamin K as needed --Large ascites; continue supportive care, oxygen as needed, paracentesis if needed after MRI -- urinary tract infection, present on admission, Continue empiric antibiotics, follow cultures --Severe hypoalbuminemia, protein calorie malnutrition, nutrition supplements and supportive care --DVT prophylaxis with SCD and no pharmacologic anticoagulation in view of coagulopathy and cirrhosis Follow pending studies Consults and recommendations noted and appreciated Plan of care reviewed with the patient and his nurse History Interval history: Patient seen and examined medical records reviewed Complaints of constipation Denies any chest pain or shortness of breath Denies abdominal pain no nausea vomiting Alert awake oriented 3 Vital signs reviewed Hospitalist Physical - Constitutional Vitals: Temp Pulse Resp BP Pulse Ox 98.9 F 82 20 126/67 96 12/15/17 06:30 18 06:30 12/15/17 06:30 12/15/17 06:30 12/15/17 04:33 General appearance: Present: no acute distress, well-nourished, obese - EENT Eyes: Present: PERRL, EOM intact, scleral icterus - Neck Neck: Present: supple, normal ROM - Respiratory Respiratory effort: normal Respiratory: bilateral: diminished, negative: rales, rhonchi, wheezing - Cardiovascular Rhythm: regular - Extremities Extremities: no ischemia Extremity abnormal: edema - Abdominal General gastrointestinal: soft, non-tender, distended, normal bowel sounds, other (ascites) - Integumentary Integumentary: Present: clear, warm - Psychiatric Psychiatric: appropriate mood/affect, cooperative - Neurologic Neurologic: CNII-XII intact Results - Labs CBC & Chem 7: 12/14/17 06:55 12/14/17 06:55 Labs: Laboratory Last Values WBC 15.1 K/mm3 (4.5-11.0) H 12/14/17 06:55 RBC 3.84 M/mm3 (3.65-5.03) 12/14/17 06:55 Hgb 12.0 gm/dl (11.8-15.2) 12/14/17 06:55 Hct 34.9 % (35.5-45.6) L D 12/14/17 06:55 MCV 91 fl (84-94) 12/14/17 06:55 MCH 31 pg (28-32) 12/14/17 06:55 MCHC 34 % (32-34) 12/14/17 06:55 RDW 23.1 % (13.2-15.2) H 12/14/17 06:55 Plt Count 173 K/mm3 (140-440) 12/14/17 06:55 Add Manual Diff Complete 12/14/17 06:55 Total Counted 100 12/14/17 06:55 Seg Neuts % (Manual) 92.0 % (40.0-70.0) H 12/14/17 06:55 Band Neutrophils % 0 % 12/14/17 06:55 Lymphocytes % (Manual) 3.0 % (13.4-35.0) L 12/14/17 06:55 Reactive Lymphs % (Man) 0 % 12/14/17 06:55 Monocytes % (Manual) 2.0 % (0.0-7.3) 12/14/17 06:55 Eosinophils % (Manual) 3.0 % (0.0-4.3) 12/14/17 06:55 Basophils % (Manual) 0 % (0.0-1.8) 12/14/17 06:55 Metamyelocytes % 0 % 12/14/17 06:55 Myelocytes % 0 % 12/14/17 06:55 Promyelocytes % 0 % 12/14/17 06:55 Blast Cells % 0 % 12/14/17 06:55 Nucleated RBC % Not Reportable 12/14/17 06:55 Seg Neutrophils # Man 13.9 K/mm3 (1.8-7.7) H 12/14/17 06:55 Band Neutrophils # 0.0 K/mm3 12/14/17 06:55 Lymphocytes # (Manual) 0.5 K/mm3 (1.2-5.4) L 12/14/17 06:55 Abs React Lymphs (Man) 0.0 K/mm3 12/14/17 06:55 Monocytes # (Manual) 0.3 K/mm3 (0.0-0.8) 12/14/17 06:55 Eosinophils # (Manual) 0.5 K/mm3 (0.0-0.4) H 12/14/17 06:55 Basophils # (Manual) 0.0 K/mm3 (0.0-0.1) 12/14/17 06:55 Metamyelocytes # 0.0 K/mm3 12/14/17 06:55 Myelocytes # 0.0 K/mm3 12/14/17 06:55 Promyelocytes # 0.0 K/mm3 12/14/17 06:55 Blast Cells # 0.0 K/mm3 12/14/17 06:55 WBC Morphology Not Reportable 12/14/17 06:55 Hypersegmented Neuts Not Reportable 12/14/17 06:55 Hyposegmented Neuts Not Reportable 12/14/17 06:55 Hypogranular Neuts Not Reportable 12/14/17 06:55 Smudge Cells Not Reportable 12/14/17 06:55 Toxic Granulation Not Reportable 12/14/17 06:55 Toxic Vacuolation Not Reportable 12/14/17 06:55 Dohle Bodies Not Reportable 12/14/17 06:55 Pelger-Huet Anomaly Not Reportable 12/14/17 06:55 Phyllis Rods Not Reportable 12/14/17 06:55 Platelet Estimate Consistent w auto 12/14/17 06:55 Clumped Platelets Not Reportable 12/14/17 06:55 Plt Clumps, EDTA Not Reportable 12/14/17 06:55 Large Platelets Not Reportable 12/14/17 06:55 Giant Platelets Not Reportable 12/14/17 06:55 Platelet Satelliting Not Reportable 12/14/17 06:55 Plt Morphology Comment Not Reportable 12/14/17 06:55 RBC Morphology Not Reportable 12/14/17 06:55 Dimorphic RBCs Not Reportable 12/14/17 06:55 Polychromasia Not Reportable 12/14/17 06:55 Hypochromasia Not Reportable 12/14/17 06:55 Poikilocytosis 1+ 12/14/17 06:55 Anisocytosis 1+ 12/14/17 06:55 Microcytosis 1+ 12/14/17 06:55 Macrocytosis Not Reportable 12/14/17 06:55 Spherocytes Not Reportable 12/14/17 06:55 Pappenheimer Bodies Not Reportable 12/14/17 06:55 Sickle Cells Not Reportable 12/14/17 06:55 Target Cells 1+ 12/14/17 06:55 Tear Drop Cells Not Reportable 12/14/17 06:55 Ovalocytes 1+ 12/14/17 06:55 Helmet Cells Not Reportable 12/14/17 06:55 Pacheco-Richey Bodies Not Reportable 12/14/17 06:55 [place] Rings Not Reportable 12/14/17 06:55 Brijesh Cells Not Reportable 12/14/17 06:55 Bite Cells Not Reportable 12/14/17 06:55 Crenated Cell Not Reportable 12/14/17 06:55 Elliptocytes Not Reportable 12/14/17 06:55 Acanthocytes (Spur) Not Reportable 12/14/17 06:55 Rouleaux Not Reportable 12/14/17 06:55 Hemoglobin C Crystals Not Reportable 12/14/17 06:55 Schistocytes Not Reportable 12/14/17 06:55 Malaria parasites Not Reportable 12/14/17 06:55 Pedro Bodies Not Reportable 12/14/17 06:55 Hem Pathologist Commnt No 12/14/17 06:55 PT 20.1 Sec. (12.2-14.9) H 12/14/17 06:55 INR 1.61 (0.87-1.13) H 12/14/17 06:55 APTT 34.8 Sec. (24.2-36.6) 12/12/17 22:06 Sodium 134 mmol/L (137-145) L 12/14/17 06:55 Potassium 4.0 mmol/L (3.6-5.0) 12/14/17 06:55 Chloride 95.5 mmol/L (98-107) L 12/14/17 06:55 Carbon Dioxide 22 mmol/L (22-30) 12/14/17 06:55 Anion Gap 21 mmol/L 12/14/17 06:55 BUN 68 mg/dL (9-20) H 12/14/17 06:55 Creatinine 2.1 mg/dL (0.8-1.5) H 12/14/17 06:55 Estimated GFR 40 ml/min 12/14/17 06:55 BUN/Creatinine Ratio 32 % 12/14/17 06:55 Glucose 91 mg/dL (75-100) 12/14/17 06:55 Osmolality 304 Mosm/kg 12/14/17 06:55 Calcium 7.7 mg/dL (8.4-10.2) L 12/14/17 06:55 Phosphorus 3.60 mg/dL (2.5-4.5) 12/14/17 06:55 Iron 48 ug/dL (49-181) L 12/13/17 10:44 TIBC 168 mcg/dL (250-450) L 12/13/17 10:44 Ferritin 508.4 ng/mL (13.0-400.0) H 12/13/17 10:44 Total Bilirubin 23.90 mg/dL (0.1-1.2) H 12/14/17 06:55 Direct Bilirubin 16.7 mg/dL (0-0.2) H 12/12/17 22:06 Indirect Bilirubin 11.7 mg/dL 12/12/17 22:06 AST 283 units/L (5-40) H 12/14/17 06:55 ALT 127 units/L (7-56) H 12/14/17 06:55 Alkaline Phosphatase 103 units/L (35-129) 12/14/17 06:55 Ammonia 10.0 umol/L (25-60) L 12/12/17 23:50 Total Protein 5.4 g/dL (6.3-8.2) L 12/14/17 06:55 Albumin 2.5 g/dL (3.9-5) L 12/14/17 06:55 Albumin/Globulin Ratio 0.9 % 12/14/17 06:55 Lipase 230 units/L (13-60) H 12/12/17 23:35 Urine Color Chasity (Yellow) 12/12/17 Unknown Urine Turbidity Clear (Clear) 12/12/17 Unknown Urine pH 5.0 (5.0-7.0) 12/12/17 Unknown Ur Specific [place] 1.016 (1.003-1.030) 12/12/17 Unknown Urine Protein <15 mg/dl mg/dL (Negative) 12/12/17 Unknown Urine Glucose (UA) Neg mg/dL (Negative) 12/12/17 Unknown Urine Ketones Neg mg/dL (Negative) 12/12/17 Unknown Urine Blood Mod (Negative) 12/12/17 Unknown Urine Nitrite Neg (Negative) 12/12/17 Unknown Urine Bilirubin Mod (Negative) 12/12/17 Unknown Urine Ictotest Positive (Negative) 12/12/17 Unknown Urine Urobilinogen 4.0 mg/dL (<2.0) 12/12/17 Unknown Ur Leukocyte Esterase Tr (Negative) 12/12/17 Unknown Urine WBC (Auto) 11.0 /HPF (0.0-6.0) H 12/12/17 Unknown Urine RBC (Auto) 3.0 /HPF (0.0-6.0) 12/12/17 Unknown U Epithel Cells (Auto) 1.0 /HPF (0-13.0) 12/12/17 Unknown Urine Bacteria (Auto) 2+ /HPF (Negative) 12/12/17 Unknown Urine Mucus Few /HPF 12/12/17 Unknown Urine Eosinophils None seen (None Seen) 12/13/17 17:31 Urine Creatinine 199.9 mg/dL (0.1-20.0) H 12/13/17 17:31 Urine Sodium 10 mmol/L 12/13/17 17:31 Urine Total Protein 44 mg/dL (5-11.8) H 12/13/17 17:31 Acetaminophen < 5.0 ug/mL (10.0-30.0) L 12/12/17 23:39 Copper 99 mcg/dL (70-175) 12/13/17 13:17 Hepatitis A IgM Ab Non-reactive (NonReactive) 12/12/17 23:39 Hep Bs Antigen Non-reactive (Negative) 12/12/17 23:39 Hep B Core IgM Ab Non-reactive (NonReactive) 12/12/17 23:39 Hepatitis C Antibody Non-reactive (NonReactive) 12/12/17 23:39
[2017-12-15] MEDS: cefTRIAXone 1 GM in NACL 0.9% 20 ML IV SCH (12:00)
[2017-12-15] MEDS: SODIUM CHLORIDE FLUSH SYRINGE 10 ML IV SCH ×2 (12:03→22:12)
[2017-12-15] MEDS ORDERED: MILK OF MAGNESIA PO PRN (13:45)
--- NOTE | 2017-12-15 15:21 | Progress Note ---
Assessment and Plan (1) Enzal-pt-zidpyze renal failure Current Visit: Yes Status: Acute Plan to address problem: no labs available this AM improved UOP Avoid Nephrotoxic agents Renally dose medications Obtain daily weights Monitor I/O's Tate present:Yes (2) Cirrhosis of liver Current Visit: Yes Status: Acute Plan to address problem: CT of Abdomen/Pelvis- Cirrhotic changes of the liver. Moderate ascites and mild to moderate enlargement of spleen. Multiple enlarged upper abdominal lymph nodes. Gastroenterology onboard (3) Leukocytosis Current Visit: Yes Status: Acute Plan to address problem: Possibly secondary to UTI- on IV Rocephin (4) UTI (urinary tract infection) Current Visit: Yes Status: Acute Plan to address problem: On IV Rocephin Subjective Date of service: 12/15/17 Principal diagnosis: cirrhosis with liver failure Interval history: denies acute issues since he was seen yesterday Objective - Vital Signs Vital signs: Vital Signs - 12hr 12/15/17 12/15/17 12/15/17 03:30 04:00 04:30 Temperature 98.8 F 99.0 F 98.8 F Pulse Rate 81 82 82 Respiratory 20 20 19 Rate Blood Pressure 117/48 126/48 130/68 O2 Sat by Pulse Oximetry 12/15/17 12/15/17 12/15/17 04:33 05:00 05:30 Temperature 98.7 F 98.9 F 98.8 F Pulse Rate 81 83 82 Respiratory 20 18 20 Rate Blood Pressure 130/64 128/64 117/69 O2 Sat by Pulse 96 Oximetry 12/15/17 12/15/17 06:00 06:30 Temperature 99.0 F 98.9 F Pulse Rate 81 82 Respiratory 19 20 Rate Blood Pressure 138/66 126/67 O2 Sat by Pulse Oximetry - General Appearance General appearance: well-developed, well-nourished, obese EENT: ATNC, PERRL, sclera incterus Neck: no JVD, no carotid bruit Respiratory: Present: Decreased Breath Sounds Cardiology: regular, S1S2 Gastrointestinal: normoactive bowel sounds, distended Integumentary: no rash, warm and dry Neurologic: no focal deficit, no asterixis, alert and oriented x3 Musculoskeletal: other (no edema in BLE) Psychiatric: mood/affect appropriate, cooperative - Lab 12/14/17 06:55 12/14/17 06:55 Most recent lab results Calcium 7.7 mg/dL (8.4-10.2) L 12/14/17 06:55 Phosphorus 3.60 mg/dL (2.5-4.5) 12/14/17 06:55 Urine Creatinine 199.9 mg/dL (0.1-20.0) H 12/13/17 17:31 Urine Sodium 10 mmol/L 12/13/17 17:31 Urine Total Protein 44 mg/dL (5-11.8) H 12/13/17 17:31
--- NOTE | 2017-12-15 17:28 | Gastroenterology Progress Note ---
Assessment and Plan 1. Acute on chronic liver failure 2. Jaundice 3. Cirrhosis -unclear etiology of suspected acute on chronic liver injury. no signs of overt encephalopathy. work-up so far negative, imaging w/o signs of biliary obstruction, and denies alcohol use. r/o sepsis. he has been on multiple otc herbal medications recently so if work-up remains negative, would have higher suspicion for DILI. trend labs, will follow. Subjective Date of service: 12/15/17 Principal diagnosis: cirrhosis with liver failure Interval history: pt seen and examined. no new complaints today. tolerating po. denies abd pain. Objective - Constitutional Vitals: Temp Pulse Resp BP Pulse Ox 98.9 F 82 20 126/67 96 12/15/17 06:30 12/15/17 06:30 12/15/17 06:30 12/15/17 06:30 12/15/17 04:33 General appearance: no acute distress, obese - EENT Eyes: scleral icterus - Respiratory Respiratory effort: normal Respiratory: bilateral: CTA - Cardiovascular Rhythm: regular Heart Sounds: Present: S1 & S2 - Gastrointestinal General gastrointestinal: Present: soft, non-tender, non-distended - Integumentary Integumentary: Present: clear - Neurologic Neurological: alert and oriented x3 - Psychiatric Psychiatric: appropriate mood/affect - Labs CBC & Chem 7: 12/14/17 06:55 12/14/17 06:55 Labs: Laboratory Results - last 24 hr 12/13/17 13:17 Copper 99
[2017-12-16 06:44] LABS: Hematocrit 33.9 % (35.5-45.6); Hemoglobin 11.8 gm/dl (11.8-15.2); Mean Corpuscular HGB Conc 35 % (32-34); Mean Corpuscular Hemoglobin 32 pg (28-32); Mean Corpuscular Volume 92 fl (84-94); Platelet Count 134 K/mm3 (140-440); Red Blood Count 3.69 M/mm3 (3.65-5.03)
[2017-12-16 06:51] LABS: INR 1.63 (0.87-1.13)
[2017-12-16 06:53] LABS: Red Cell Distribution Width 22.6 % (13.2-15.2)
[2017-12-16 07:02] LABS: Eosinophils # (Auto) 0.5 K/mm3 (0.0-0.4); Eosinophils % (Auto) 4.1 % (0.0-4.3); Monocytes # (Auto) 1.8 K/mm3 (0.0-0.8); Monocytes % (Auto) 13.2 % (0.0-7.3)
[2017-12-16 07:11] LABS: Albumin 2.9 g/dL (3.9-5); Calcium 7.7 mg/dL (8.4-10.2)
--- NOTE | 2017-12-16 08:18 | Progress Note ---
Assessment and Plan (1) Audni-iu-ihydnrm renal failure Current Visit: Yes Status: Acute Plan to address problem: improved Cr after albumin challenge , good UOP Avoid Nephrotoxic agents Renally dose medications Obtain daily weights Monitor I/O's [place] present:Yes (2) Cirrhosis of liver Current Visit: Yes Status: Acute Plan to address problem: CT of Abdomen/Pelvis- Cirrhotic changes of the liver. Moderate ascites and mild to moderate enlargement of spleen. Multiple enlarged upper abdominal lymph nodes. Gastroenterology onboard (3) Leukocytosis Current Visit: Yes Status: Acute Plan to address problem: Possibly secondary to UTI- on IV Rocephin (4) UTI (urinary tract infection) Current Visit: Yes Status: Acute Plan to address problem: On IV Rocephin Subjective Date of service: 12/16/17 Principal diagnosis: cirrhosis with liver failure Interval history: remains to feel weak but comfortable Objective - Vital Signs Vital signs: Vital Signs - 12hr 12/15/17 12/15/17 22:00 23:23 Temperature 98.8 F Pulse Rate 87 Respiratory 20 18 Rate Respiratory 20 Rate [Abdomen] Blood Pressure 153/83 [Right] - General Appearance General appearance: well-developed, well-nourished EENT: ATNC, PERRL, mucous membranes dry, sclera incterus Neck: no JVD, no carotid bruit Respiratory: Present: Decreased Breath Sounds. Absent: Rales, Ronchi Cardiology: regular, S1S2 Gastrointestinal: normoactive bowel sounds, no tenderness, distended Integumentary: no rash, warm and dry Neurologic: no focal deficit, no asterixis, alert and oriented x3 Musculoskeletal: other (no edema in BLE) Psychiatric: mood/affect appropriate, cooperative - Lab 12/16/17 05:22 12/16/17 05:22 Most recent lab results Calcium 7.7 mg/dL (8.4-10.2) L 12/16/17 05:22 Phosphorus 3.60 mg/dL (2.5-4.5) 12/14/17 06:55 Urine Creatinine 199.9 mg/dL (0.1-20.0) H 12/13/17 17:31 Urine Sodium 10 mmol/L 12/13/17 17:31 Urine Total Protein 44 mg/dL (5-11.8) H 12/13/17 17:31
[2017-12-16] MEDS: SODIUM CHLORIDE FLUSH SYRINGE 10 ML IV SCH ×2 (10:45→22:15)
[2017-12-16] MEDS: cefTRIAXone 1 GM in NACL 0.9% 20 ML IV SCH (10:46)
[2017-12-16 11:51] LABS: Total Cells Counted 100
[2017-12-16 11:52] LABS: Anisocytosis 1+; Platelet Estimate Consistent w Auto; Target Cells 1+
--- NOTE | 2017-12-16 14:48 | Gastroenterology Progress Note ---
Assessment and Plan 1. Acute on chronic liver failure 2. Jaundice 3. Cirrhosis -labs stable, no significant improvement. mental status unchanged. unclear cause of suspected acute liver injury superimposed on underlying cirrhosis. suspect DILI; however, may benefit from liver biopsy to help with diagnosis and subsequently management. discuss with IR tomorrow about potential biopsy and if felt to be safe in this setting. trend labs daily Subjective Date of service: 12/16/17 Principal diagnosis: cirrhosis with liver failure Interval history: pt seen and examined. no new complaints since yesterday. minimal po intake but will try to eat his lunch. no mental status changes or signs of gi bleeding. Objective - Constitutional Vitals: Temp Pulse Resp BP Pulse Ox 98.4 F 90 20 143/71 95 12/16/17 08:34 12/16/17 08:34 12/16/17 08:34 12/16/17 08:34 12/16/17 08:34 General appearance: obese - EENT Eyes: scleral icterus - Respiratory Respiratory effort: normal Respiratory: bilateral: CTA - Cardiovascular Rhythm: regular Heart Sounds: Present: S1 & S2 - Gastrointestinal General gastrointestinal: Present: soft, non-tender - Neurologic Neurological: alert and oriented x3 - Psychiatric Psychiatric: appropriate mood/affect - Labs CBC & Chem 7: 12/16/17 05:22 12/16/17 05:22 Labs: Laboratory Results - last 24 hr 12/13/17 12/16/17 12/16/17 10:44 05:22 05:22 WBC 13.2 H RBC 3.69 Hgb 11.8 Hct 33.9 L MCV 92 MCH 32 MCHC 35 H RDW 22.6 H Plt Count 134 L [place] % (Auto) 13.2 H Eos % (Auto) 4.1 [place] # 1.8 H Eos # 0.5 H Baso # 0.0 Add Manual Diff Complete Total Counted 100 Seg Neutrophils % 72.0 H Seg Neuts % (Manual) 78.0 H Band Neutrophils % 0 Lymphocytes % (Manual) 6.0 L Reactive Lymphs % (Man) 0 Monocytes % (Manual) 6.0 Eosinophils % (Manual) 9.0 H Basophils % (Manual) 1.0 Metamyelocytes % 0 Myelocytes % 0 Promyelocytes % 0 Blast Cells % 0 Nucleated RBC % Not Reportable Seg Neutrophils # 9.5 H Seg Neutrophils # Man 10.3 H Band Neutrophils # 0.0 Lymphocytes # (Manual) 0.8 L Abs React Lymphs (Man) 0.0 Monocytes # (Manual) 0.8 Eosinophils # (Manual) 1.2 H Basophils # (Manual) 0.1 Metamyelocytes # 0.0 Myelocytes # 0.0 Promyelocytes # 0.0 Blast Cells # 0.0 WBC Morphology Not Reportable Hypersegmented Neuts Not Reportable Hyposegmented Neuts Not Reportable Hypogranular Neuts Not Reportable Smudge Cells Not Reportable Toxic Granulation Not Reportable Toxic Vacuolation Not Reportable Dohle Bodies Not Reportable Pelger-Huet Anomaly Not Reportable Phyllis Rods Not Reportable Platelet Estimate Consistent w auto Clumped Platelets Not Reportable Plt Clumps, EDTA Not Reportable Large Platelets Not Reportable Giant Platelets Not Reportable Platelet Satelliting Not Reportable Plt Morphology Comment Not Reportable RBC Morphology Not Reportable Dimorphic RBCs Not Reportable Polychromasia Not Reportable Hypochromasia Not Reportable Poikilocytosis Not Reportable Anisocytosis 1+ Microcytosis Not Reportable Macrocytosis Not Reportable Spherocytes Not Reportable Pappenheimer Bodies Not Reportable Sickle Cells Not Reportable Target Cells 1+ Tear Drop Cells Not Reportable Ovalocytes Not Reportable Helmet Cells Not Reportable [place] Bodies Not Reportable [place] Rings Not Reportable Brijesh Cells Not Reportable Bite Cells Not Reportable Crenated Cell Not Reportable Elliptocytes Not Reportable Acanthocytes (Spur) Not Reportable Rouleaux Not Reportable Hemoglobin C Crystals Not Reportable Schistocytes Not Reportable Malaria parasites Not Reportable Pedro Bodies Not Reportable Hem Pathologist Commnt No PT 20.3 H INR 1.63 H Sodium Potassium Chloride Carbon Dioxide Anion Gap BUN Creatinine Estimated GFR BUN/Creatinine Ratio Glucose Calcium Total Bilirubin AST ALT Alkaline Phosphatase Total Protein Albumin Albumin/Globulin Ratio Ceruloplasmin 27 12/16/17 05:22 WBC RBC Hgb Hct MCV MCH MCHC RDW Plt Count [place] % (Auto) Eos % (Auto) [place] # Eos # Baso # Add Manual Diff Total Counted Seg Neutrophils % Seg Neuts % (Manual) Band Neutrophils % Lymphocytes % (Manual) Reactive Lymphs % (Man) Monocytes % (Manual) Eosinophils % (Manual) Basophils % (Manual) Metamyelocytes % Myelocytes % Promyelocytes % Blast Cells % Nucleated RBC % Seg Neutrophils # Seg Neutrophils # Man Band Neutrophils # Lymphocytes # (Manual) Abs React Lymphs (Man) Monocytes # (Manual) Eosinophils # (Manual) Basophils # (Manual) Metamyelocytes # Myelocytes # Promyelocytes # Blast Cells # WBC Morphology Hypersegmented Neuts Hyposegmented Neuts Hypogranular Neuts Smudge Cells Toxic Granulation Toxic Vacuolation Dohle Bodies Pelger-Huet Anomaly Phyllis Rods Platelet Estimate Clumped Platelets Plt Clumps, EDTA Large Platelets Giant Platelets Platelet Satelliting Plt Morphology Comment RBC Morphology Dimorphic RBCs Polychromasia Hypochromasia Poikilocytosis Anisocytosis Microcytosis Macrocytosis Spherocytes Pappenheimer Bodies Sickle Cells Target Cells Tear Drop Cells Ovalocytes Helmet Cells [place] Bodies [place] Rings [place] Cells Bite Cells Crenated Cell Elliptocytes Acanthocytes (Spur) Rouleaux Hemoglobin C Crystals Schistocytes Malaria parasites Pedro Bodies Hem Pathologist Commnt PT INR Sodium 135 L Potassium 3.8 Chloride 95.6 L Carbon Dioxide 22 Anion Gap 21 BUN 71 H Creatinine 1.6 H Estimated GFR 54 BUN/Creatinine Ratio 44 Glucose 92 Calcium 7.7 L Total Bilirubin 23.00 H AST 226 H ALT 93 H Alkaline Phosphatase 86 Total Protein 5.7 L Albumin 2.9 L Albumin/Globulin Ratio 1.0 Ceruloplasmin - Imaging CT scan: report reviewed Ultrasound: report reviewed
--- NOTE | 2017-12-16 19:04 | Progress Note ---
Assessment and Plan Assessment and plan: --Constipation; improved continues to softeners --Cirrhosis liver; workup is in progress Advanced stage liver cirrhosis liver, Hepatitis panel negative, workup in progress Recommended MRI with contrast, when renal function is improved --Acute on chronic kidney disease stage III; worsening renal function Closely monitor renal function, avoid nephrotoxic medications, management per Nephrology --Coagulopathy; secondary to cirrhosis, closely monitor, consider vitamin K as needed --Large ascites; continue supportive care, oxygen as needed, paracentesis if needed -- urinary tract infection, present on admission, Continue empiric antibiotics, follow cultures --Severe hypoalbuminemia, protein calorie malnutrition, nutrition supplements and supportive care --DVT prophylaxis with SCD and no pharmacologic anticoagulation in view of coagulopathy and cirrhosis Follow pending studies Consults and recommendations noted and appreciated Plan of care reviewed with the patient and his nurse History Interval history: Since seen and examined medical records reviewed No new complaints, denies nausea or vomiting, had a small bowel movement Vital signs reviewed Alert awake Oriented 3 Hospitalist Physical - Constitutional Vitals: Temp Pulse Resp BP Pulse Ox 98.4 F 90 20 143/71 95 12/16/17 08:34 12/16/17 08:34 12/16/17 08:34 12/16/17 08:34 12/16/17 08:34 General appearance: Present: no acute distress, well-nourished, obese - EENT Eyes: Present: PERRL, EOM intact, scleral icterus - Neck Neck: Present: supple, normal ROM - Respiratory Respiratory effort: normal Respiratory: bilateral: diminished, negative: rales, rhonchi, wheezing - Cardiovascular Rhythm: regular Heart Sounds: Present: S1 & S2 - Extremities Extremities: no ischemia Extremity abnormal: edema - Abdominal General gastrointestinal: soft, non-tender, distended, normal bowel sounds, other (ascites) - Integumentary Integumentary: Present: clear, warm - Psychiatric Psychiatric: appropriate mood/affect, cooperative - Neurologic Neurologic: CNII-XII intact, moves all extremities Results - Labs CBC & Chem 7: 12/16/17 05:22 12/16/17 05:22 Labs: Laboratory Last Values WBC 13.2 K/mm3 (4.5-11.0) H 12/16/17 05:22 RBC 3.69 M/mm3 (3.65-5.03) 12/16/17 05:22 Hgb 11.8 gm/dl (11.8-15.2) 12/16/17 05:22 Hct 33.9 % (35.5-45.6) L 12/16/17 05:22 MCV 92 fl (84-94) 12/16/17 05:22 MCH 32 pg (28-32) 12/16/17 05:22 MCHC 35 % (32-34) H 12/16/17 05:22 RDW 22.6 % (13.2-15.2) H 12/16/17 05:22 Plt Count 134 K/mm3 (140-440) L 12/16/17 05:22 Johnson % (Auto) 13.2 % (0.0-7.3) H 12/16/17 05:22 Eos % (Auto) 4.1 % (0.0-4.3) 12/16/17 05:22 Johnson # 1.8 K/mm3 (0.0-0.8) H 12/16/17 05:22 Eos # 0.5 K/mm3 (0.0-0.4) H 12/16/17 05:22 Baso # 0.0 K/mm3 (0.0-0.1) 12/16/17 05:22 Add Manual Diff Complete 12/16/17 05:22 Total Counted 100 12/16/17 05:22 Seg Neutrophils % 72.0 % (40.0-70.0) H 12/16/17 05:22 Seg Neuts % (Manual) 78.0 % (40.0-70.0) H 12/16/17 05:22 Band Neutrophils % 0 % 12/16/17 05:22 Lymphocytes % (Manual) 6.0 % (13.4-35.0) L 12/16/17 05:22 Reactive Lymphs % (Man) 0 % 12/16/17 05:22 Monocytes % (Manual) 6.0 % (0.0-7.3) 12/16/17 05:22 Eosinophils % (Manual) 9.0 % (0.0-4.3) H 12/16/17 05:22 Basophils % (Manual) 1.0 % (0.0-1.8) 12/16/17 05:22 Metamyelocytes % 0 % 12/16/17 05:22 Myelocytes % 0 % 12/16/17 05:22 Promyelocytes % 0 % 12/16/17 05:22 Blast Cells % 0 % 12/16/17 05:22 Nucleated RBC % Not Reportable 12/16/17 05:22 Seg Neutrophils # 9.5 K/mm3 (1.8-7.7) H 12/16/17 05:22 Seg Neutrophils # Man 10.3 K/mm3 (1.8-7.7) H 12/16/17 05:22 Band Neutrophils # 0.0 K/mm3 12/16/17 05:22 Lymphocytes # (Manual) 0.8 K/mm3 (1.2-5.4) L 12/16/17 05:22 Abs React Lymphs (Man) 0.0 K/mm3 12/16/17 05:22 Monocytes # (Manual) 0.8 K/mm3 (0.0-0.8) 12/16/17 05:22 Eosinophils # (Manual) 1.2 K/mm3 (0.0-0.4) H 12/16/17 05:22 Basophils # (Manual) 0.1 K/mm3 (0.0-0.1) 12/16/17 05:22 Metamyelocytes # 0.0 K/mm3 12/16/17 05:22 Myelocytes # 0.0 K/mm3 12/16/17 05:22 Promyelocytes # 0.0 K/mm3 12/16/17 05:22 Blast Cells # 0.0 K/mm3 12/16/17 05:22 WBC Morphology Not Reportable 12/16/17 05:22 Hypersegmented Neuts Not Reportable 12/16/17 05:22 Hyposegmented Neuts Not Reportable 12/16/17 05:22 Hypogranular Neuts Not Reportable 12/16/17 05:22 Smudge Cells Not Reportable 12/16/17 05:22 Toxic Granulation Not Reportable 12/16/17 05:22 Toxic Vacuolation Not Reportable 12/16/17 05:22 Dohle Bodies Not Reportable 12/16/17 05:22 Pelger-Huet Anomaly Not Reportable 12/16/17 05:22 Phyllis Rods Not Reportable 12/16/17 05:22 Platelet Estimate Consistent w auto 12/16/17 05:22 Clumped Platelets Not Reportable 12/16/17 05:22 Plt Clumps, EDTA Not Reportable 12/16/17 05:22 Large Platelets Not Reportable 12/16/17 05:22 Giant Platelets Not Reportable 12/16/17 05:22 Platelet Satelliting Not Reportable 12/16/17 05:22 Plt Morphology Comment Not Reportable 12/16/17 05:22 RBC Morphology Not Reportable 12/16/17 05:22 Dimorphic RBCs Not Reportable 12/16/17 05:22 Polychromasia Not Reportable 12/16/17 05:22 Hypochromasia Not Reportable 12/16/17 05:22 Poikilocytosis Not Reportable 12/16/17 05:22 Anisocytosis 1+ 12/16/17 05:22 Microcytosis Not Reportable 12/16/17 05:22 Macrocytosis Not Reportable 12/16/17 05:22 Spherocytes Not Reportable 12/16/17 05:22 Pappenheimer Bodies Not Reportable 12/16/17 05:22 Sickle Cells Not Reportable 12/16/17 05:22 Target Cells 1+ 12/16/17 05:22 Tear Drop Cells Not Reportable 12/16/17 05:22 Ovalocytes Not Reportable 12/16/17 05:22 Helmet Cells Not Reportable 12/16/17 05:22 [place] Bodies Not Reportable 12/16/17 05:22 [place] Rings Not Reportable 12/16/17 05:22 [place] Cells Not Reportable 12/16/17 05:22 Bite Cells Not Reportable 12/16/17 05:22 Crenated Cell Not Reportable 12/16/17 05:22 Elliptocytes Not Reportable 12/16/17 05:22 Acanthocytes (Spur) Not Reportable 12/16/17 05:22 Rouleaux Not Reportable 12/16/17 05:22 Hemoglobin C Crystals Not Reportable 12/16/17 05:22 Schistocytes Not Reportable 12/16/17 05:22 Malaria parasites Not Reportable 12/16/17 05:22 Pedro Bodies Not Reportable 12/16/17 05:22 Hem Pathologist Commnt No 12/16/17 05:22 PT 20.3 Sec. (12.2-14.9) H 12/16/17 05:22 INR 1.63 (0.87-1.13) H 12/16/17 05:22 APTT 34.8 Sec. (24.2-36.6) 12/12/17 22:06 Sodium 135 mmol/L (137-145) L 12/16/17 05:22 Potassium 3.8 mmol/L (3.6-5.0) 12/16/17 05:22 Chloride 95.6 mmol/L (98-107) L 12/16/17 05:22 Carbon Dioxide 22 mmol/L (22-30) 12/16/17 05:22 Anion Gap 21 mmol/L 12/16/17 05:22 BUN 71 mg/dL (9-20) H 12/16/17 05:22 Creatinine 1.6 mg/dL (0.8-1.5) H 12/16/17 05:22 Estimated GFR 54 ml/min 12/16/17 05:22 BUN/Creatinine Ratio 44 % 12/16/17 05:22 Glucose 92 mg/dL (75-100) 12/16/17 05:22 Osmolality 304 Mosm/kg 12/14/17 06:55 Calcium 7.7 mg/dL (8.4-10.2) L 12/16/17 05:22 Phosphorus 3.60 mg/dL (2.5-4.5) 12/14/17 06:55 Iron 48 ug/dL (49-181) L 12/13/17 10:44 TIBC 168 mcg/dL (250-450) L 12/13/17 10:44 Ferritin 508.4 ng/mL (13.0-400.0) H 12/13/17 10:44 Total Bilirubin 23.00 mg/dL (0.1-1.2) H 12/16/17 05:22 Direct Bilirubin 16.7 mg/dL (0-0.2) H 12/12/17 22:06 Indirect Bilirubin 11.7 mg/dL 12/12/17 22:06 AST 226 units/L (5-40) H 12/16/17 05:22 ALT 93 units/L (7-56) H 12/16/17 05:22 Alkaline Phosphatase 86 units/L (35-129) 12/16/17 05:22 Ammonia 10.0 umol/L (25-60) L 12/12/17 23:50 Total Protein 5.7 g/dL (6.3-8.2) L 12/16/17 05:22 Albumin 2.9 g/dL (3.9-5) L 12/16/17 05:22 Albumin/Globulin Ratio 1.0 % 12/16/17 05:22 Ceruloplasmin 27 mg/dL (18-36) 12/13/17 10:44 Lipase 230 units/L (13-60) H 12/12/17 23:35 Urine Color Chasity (Yellow) 12/12/17 Unknown Urine Turbidity Clear (Clear) 12/12/17 Unknown Urine pH 5.0 (5.0-7.0) 12/12/17 Unknown Ur Specific [place] 1.016 (1.003-1.030) 12/12/17 Unknown Urine Protein <15 mg/dl mg/dL (Negative) 12/12/17 Unknown Urine Glucose (UA) Neg mg/dL (Negative) 12/12/17 Unknown Urine Ketones Neg mg/dL (Negative) 12/12/17 Unknown Urine Blood Mod (Negative) 12/12/17 Unknown Urine Nitrite Neg (Negative) 12/12/17 Unknown Urine Bilirubin Mod (Negative) 12/12/17 Unknown Urine Ictotest Positive (Negative) 12/12/17 Unknown Urine Urobilinogen 4.0 mg/dL (<2.0) 12/12/17 Unknown Ur Leukocyte Esterase Tr (Negative) 12/12/17 Unknown Urine WBC (Auto) 11.0 /HPF (0.0-6.0) H 12/12/17 Unknown Urine RBC (Auto) 3.0 /HPF (0.0-6.0) 12/12/17 Unknown U Epithel Cells (Auto) 1.0 /HPF (0-13.0) 12/12/17 Unknown Urine Bacteria (Auto) 2+ /HPF (Negative) 12/12/17 Unknown Urine Mucus Few /HPF 12/12/17 Unknown Urine Eosinophils None seen (None Seen) 12/13/17 17:31 Urine Creatinine 199.9 mg/dL (0.1-20.0) H 12/13/17 17:31 Urine Sodium 10 mmol/L 12/13/17 17:31 Urine Total Protein 44 mg/dL (5-11.8) H 03/29/18 17:31 Acetaminophen < 5.0 ug/mL (10.0-30.0) L 12/12/17 23:39 Copper 99 mcg/dL (70-175) 12/13/17 13:17 Hepatitis A IgM Ab Non-reactive (NonReactive) 12/12/17 23:39 Hep Bs Antigen Non-reactive (Negative) 12/12/17 23:39 Hep B Core IgM Ab Non-reactive (NonReactive) 12/12/17 23:39 Hepatitis C Antibody Non-reactive (NonReactive) 12/12/17 23:39
[2017-12-16 19:48] LABS: ANA Screen, IFA Negative (Negative)
[2017-12-17] MEDS: cefTRIAXone 1 GM in NACL 0.9% 20 ML IV SCH ×3 (07:15→14:49)
[2017-12-17 07:48] LABS: INR 1.58 (0.87-1.13)
[2017-12-17 08:04] LABS: Alanine Aminotransferase 87 units/L (7-56); Albumin 2.7 g/dL (3.9-5); BUN/Creatinine Ratio 46; Blood Urea Nitrogen 65 mg/dL (9-20); Calcium 7.9 mg/dL (8.4-10.2); Hemolysis Index 0
--- NOTE | 2017-12-17 08:27 | Progress Note ---
Subjective Date of service: 12/17/17 Principal diagnosis: cirrhosis with liver failure Objective - Vital Signs Vital signs: Vital Signs - 12hr 12/16/17 21:49 Temperature 98.3 F Pulse Rate 83 Respiratory 18 Rate Blood Pressure 135/57 [Right] - Lab 12/16/17 05:22 12/17/17 06:48 Most recent lab results Calcium 7.9 mg/dL (8.4-10.2) L 12/17/17 06:48 Phosphorus 3.60 mg/dL (2.5-4.5) 12/14/17 06:55 Urine Creatinine 199.9 mg/dL (0.1-20.0) H 12/13/17 17:31 Urine Sodium 10 mmol/L 12/13/17 17:31 Urine Total Protein 44 mg/dL (5-11.8) H 12/13/17 17:31
--- NOTE | 2017-12-17 08:29 | Progress Note ---
Assessment and Plan (1) [id number] renal failure Current Visit: Yes Status: Acute Plan to address problem: labs are pending this AMN Avoid Nephrotoxic agents Renally dose medications Obtain daily weights Monitor I/O's Tate present:Yes (2) Cirrhosis of liver Current Visit: Yes Status: Acute Plan to address problem: possible liver biopsy by IR Gastroenterology onboard (3) Leukocytosis Current Visit: Yes Status: Acute Plan to address problem: Possibly secondary to UTI- on IV Rocephin (4) UTI (urinary tract infection) Current Visit: Yes Status: Acute Plan to address problem: On IV Rocephin Subjective Date of service: 12/17/17 Principal diagnosis: cirrhosis with liver failure Interval history: remains to feel weak Objective - Vital Signs Vital signs: Vital Signs - 12hr 12/16/17 21:49 Temperature 98.3 F Pulse Rate 83 Respiratory 18 Rate Blood Pressure 135/57 [Right] - General Appearance General appearance: well-developed, appears stated age EENT: ATNC, PERRL, sclera incterus Neck: no JVD, no carotid bruit Respiratory: Present: Clear to Ascultation Cardiology: regular, S1S2 Gastrointestinal: normoactive bowel sounds, no tenderness, distended Integumentary: no rash, warm and dry Neurologic: no focal deficit, no asterixis, alert and oriented x3 Musculoskeletal: other (no edema in BLE) Psychiatric: mood/affect appropriate, cooperative - Lab 12/16/17 05:22 12/17/17 06:48 Most recent lab results Calcium 7.9 mg/dL (8.4-10.2) L 12/17/17 06:48 Phosphorus 3.60 mg/dL (2.5-4.5) 12/14/17 06:55 Urine Creatinine 199.9 mg/dL (0.1-20.0) H 12/13/17 17:31 Urine Sodium 10 mmol/L 12/13/17 17:31 Urine Total Protein 44 mg/dL (5-11.8) H 12/13/17 17:31
--- NOTE | 2017-12-17 10:40 | Progress Note ---
Assessment and Plan Assessment and plan: --Cirrhosis liver; workup is in progress Hepatitis panel negative, possible liver biopsy Recommended MRI with contrast, renal function is improved GI following --Coagulopathy; secondary to cirrhosis, closely monitor, consider vitamin K as needed --Large ascites; continue supportive care, oxygen as needed, paracentesis if needed --Acute on chronic kidney disease stage III; resolved Closely monitor renal function, avoid nephrotoxic medications, management per Nephrology -- urinary tract infection, present on admission, Continue empiric antibiotics, cultures negative to date --Severe hypoalbuminemia, protein calorie malnutrition, nutrition supplements and supportive care --DVT prophylaxis with SCD and no pharmacologic anticoagulation in view of coagulopathy and cirrhosis Discussed with GI Dr. Fay Plan of care reviewed with the patient and his nurse History Interval history: Patient seen and evaluated medical records reviewed Feels slightly better, transaminases still elevated Patient is icteric, complains of mild nausea no other symptoms Vital signs reviewed Hospitalist Physical - Constitutional Vitals: Temp Pulse Resp BP Pulse Ox 98.3 F 83 18 135/57 95 12/16/17 21:49 12/16/17 21:49 12/16/17 21:49 12/16/17 21:49 12/16/17 08:34 General appearance: Present: no acute distress, well-nourished, obese - EENT Eyes: Present: PERRL, scleral icterus - Neck Neck: Present: supple, normal ROM - Respiratory Respiratory effort: normal Respiratory: bilateral: diminished, rales, negative: rhonchi, wheezing - Cardiovascular Rhythm: regular Heart Sounds: Present: S1 & S2 - Extremities Extremities: no ischemia, No edema - Abdominal General gastrointestinal: soft, non-tender, non-distended, normal bowel sounds - Integumentary Integumentary: Present: clear, warm - Psychiatric Psychiatric: appropriate mood/affect, cooperative - Neurologic Neurologic: CNII-XII intact, moves all extremities Results - Labs CBC & Chem 7: 12/16/17 05:22 12/17/17 06:48 Labs: Laboratory Last Values WBC 13.2 K/mm3 (4.5-11.0) H 12/16/17 05:22 RBC 3.69 M/mm3 (3.65-5.03) 12/16/17 05:22 Hgb 11.8 gm/dl (11.8-15.2) 12/16/17 05:22 Hct 33.9 % (35.5-45.6) L 12/16/17 05:22 MCV 92 fl (84-94) 12/16/17 05:22 MCH 32 pg (28-32) 12/16/17 05:22 MCHC 35 % (32-34) H 12/16/17 05:22 RDW 22.6 % (13.2-15.2) H 12/16/17 05:22 Plt Count 134 K/mm3 (140-440) L 12/16/17 05:22 [place] % (Auto) 13.2 % (0.0-7.3) H 12/16/17 05:22 Eos % (Auto) 4.1 % (0.0-4.3) 12/16/17 05:22 [place] # 1.8 K/mm3 (0.0-0.8) H 12/16/17 05:22 Eos # 0.5 K/mm3 (0.0-0.4) H 12/16/17 05:22 Baso # 0.0 K/mm3 (0.0-0.1) 12/16/17 05:22 Add Manual Diff Complete 12/16/17 05:22 Total Counted 100 12/16/17 05:22 Seg Neutrophils % 72.0 % (40.0-70.0) H 12/16/17 05:22 Seg Neuts % (Manual) 78.0 % (40.0-70.0) H 12/16/17 05:22 Band Neutrophils % 0 % 12/16/17 05:22 Lymphocytes % (Manual) 6.0 % (13.4-35.0) L 12/16/17 05:22 Reactive Lymphs % (Man) 0 % 12/16/17 05:22 Monocytes % (Manual) 6.0 % (0.0-7.3) 12/16/17 05:22 Eosinophils % (Manual) 9.0 % (0.0-4.3) H 12/16/17 05:22 Basophils % (Manual) 1.0 % (0.0-1.8) 12/16/17 05:22 Metamyelocytes % 0 % 12/16/17 05:22 Myelocytes % 0 % 12/16/17 05:22 Promyelocytes % 0 % 12/16/17 05:22 Blast Cells % 0 % 12/16/17 05:22 Nucleated RBC % Not Reportable 12/16/17 05:22 Seg Neutrophils # 9.5 K/mm3 (1.8-7.7) H 12/16/17 05:22 Seg Neutrophils # Man 10.3 K/mm3 (1.8-7.7) H 12/16/17 05:22 Band Neutrophils # 0.0 K/mm3 12/16/17 05:22 Lymphocytes # (Manual) 0.8 K/mm3 (1.2-5.4) L 12/16/17 05:22 Abs React Lymphs (Man) 0.0 K/mm3 12/16/17 05:22 Monocytes # (Manual) 0.8 K/mm3 (0.0-0.8) 12/16/17 05:22 Eosinophils # (Manual) 1.2 K/mm3 (0.0-0.4) H 12/16/17 05:22 Basophils # (Manual) 0.1 K/mm3 (0.0-0.1) 12/16/17 05:22 Metamyelocytes # 0.0 K/mm3 12/16/17 05:22 Myelocytes # 0.0 K/mm3 12/16/17 05:22 Promyelocytes # 0.0 K/mm3 12/16/17 05:22 Blast Cells # 0.0 K/mm3 12/16/17 05:22 WBC Morphology Not Reportable 12/16/17 05:22 Hypersegmented Neuts Not Reportable 12/16/17 05:22 Hyposegmented Neuts Not Reportable 12/16/17 05:22 Hypogranular Neuts Not Reportable 12/16/17 05:22 Smudge Cells Not Reportable 12/16/17 05:22 Toxic Granulation Not Reportable 12/16/17 05:22 Toxic Vacuolation Not Reportable 12/16/17 05:22 Dohle Bodies Not Reportable 12/16/17 05:22 Pelger-Huet Anomaly Not Reportable 12/16/17 05:22 Phyllis Rods Not Reportable 12/16/17 05:22 Platelet Estimate Consistent w auto 12/16/17 05:22 Clumped Platelets Not Reportable 12/16/17 05:22 Plt Clumps, EDTA Not Reportable 12/16/17 05:22 Large Platelets Not Reportable 12/16/17 05:22 Giant Platelets Not Reportable 12/16/17 05:22 Platelet Satelliting Not Reportable 12/16/17 05:22 Plt Morphology Comment Not Reportable 12/16/17 05:22 RBC Morphology Not Reportable 12/16/17 05:22 Dimorphic RBCs Not Reportable 12/16/17 05:22 Polychromasia Not Reportable 12/16/17 05:22 Hypochromasia Not Reportable 12/16/17 05:22 Poikilocytosis Not Reportable 12/16/17 05:22 Anisocytosis 1+ 12/16/17 05:22 Microcytosis Not Reportable 12/16/17 05:22 Macrocytosis Not Reportable 12/16/17 05:22 Spherocytes Not Reportable 12/16/17 05:22 Pappenheimer Bodies Not Reportable 12/16/17 05:22 Sickle Cells Not Reportable 12/16/17 05:22 Target Cells 1+ 12/16/17 05:22 Tear Drop Cells Not Reportable 12/16/17 05:22 Ovalocytes Not Reportable 12/16/17 05:22 Helmet Cells Not Reportable 12/16/17 05:22 [place] Bodies Not Reportable 12/16/17 05:22 [place] Rings Not Reportable 12/16/17 05:22 [place] Cells Not Reportable 12/16/17 05:22 Bite Cells Not Reportable 12/16/17 05:22 Crenated Cell Not Reportable 12/16/17 05:22 Elliptocytes Not Reportable 12/16/17 05:22 Acanthocytes (Spur) Not Reportable 12/16/17 05:22 Rouleaux Not Reportable 12/16/17 05:22 Hemoglobin C Crystals Not Reportable 12/16/17 05:22 Schistocytes Not Reportable 12/16/17 05:22 Malaria parasites Not Reportable 12/16/17 05:22 Pedro Bodies Not Reportable 12/16/17 05:22 Hem Pathologist Commnt No 12/16/17 05:22 PT 19.8 Sec. (12.2-14.9) H 12/17/17 06:48 INR 1.58 (0.87-1.13) H 12/17/17 06:48 APTT 34.8 Sec. (24.2-36.6) 12/12/17 22:06 Sodium 136 mmol/L (137-145) L 12/17/17 06:48 Potassium 4.1 mmol/L (3.6-5.0) 12/17/17 06:48 Chloride 97.5 mmol/L (98-107) L 12/17/17 06:48 Carbon Dioxide 24 mmol/L (22-30) 12/17/17 06:48 Anion Gap 19 mmol/L 12/17/17 06:48 BUN 65 mg/dL (9-20) H 12/17/17 06:48 Creatinine 1.4 mg/dL (0.8-1.5) 12/17/17 06:48 Estimated GFR > 60 ml/min 12/17/17 06:48 BUN/Creatinine Ratio 46 % 12/17/17 06:48 Glucose 102 mg/dL (75-100) H 12/17/17 06:48 Osmolality 304 Mosm/kg 12/14/17 06:55 Calcium 7.9 mg/dL (8.4-10.2) L 12/17/17 06:48 Phosphorus 3.60 mg/dL (2.5-4.5) 12/14/17 06:55 Iron 48 ug/dL (49-181) L 12/13/17 10:44 TIBC 168 mcg/dL (250-450) L 12/13/17 10:44 Ferritin 508.4 ng/mL (13.0-400.0) H 12/13/17 10:44 Total Bilirubin 23.00 mg/dL (0.1-1.2) H 12/17/17 06:48 Direct Bilirubin 16.7 mg/dL (0-0.2) H 12/12/17 22:06 Indirect Bilirubin 11.7 mg/dL 12/12/17 22:06 AST 237 units/L (5-40) H 12/17/17 06:48 ALT 87 units/L (7-56) H 12/17/17 06:48 Alkaline Phosphatase 81 units/L (35-129) 12/17/17 06:48 Ammonia 10.0 umol/L (25-60) L 12/12/17 23:50 Total Protein 5.7 g/dL (6.3-8.2) L 12/17/17 06:48 Albumin 2.7 g/dL (3.9-5) L 12/17/17 06:48 Albumin/Globulin Ratio 0.9 % 12/17/17 06:48 Ceruloplasmin 27 mg/dL (18-36) 12/13/17 10:44 Lipase 230 units/L (13-60) H 12/12/17 23:35 Urine Color Chasity (Yellow) 12/12/17 Unknown Urine Turbidity Clear (Clear) 12/12/17 Unknown Urine pH 5.0 (5.0-7.0) 12/12/17 Unknown Ur Specific [place] 1.016 (1.003-1.030) 12/12/17 Unknown Urine Protein <15 mg/dl mg/dL (Negative) 12/12/17 Unknown Urine Glucose (UA) Neg mg/dL (Negative) 12/12/17 Unknown Urine Ketones Neg mg/dL (Negative) 12/12/17 Unknown Urine Blood Mod (Negative) 12/12/17 Unknown Urine Nitrite Neg (Negative) 12/12/17 Unknown Urine Bilirubin Mod (Negative) 12/12/17 Unknown Urine Ictotest Positive (Negative) 12/12/17 Unknown Urine Urobilinogen 4.0 mg/dL (<2.0) 12/12/17 Unknown Ur Leukocyte Esterase Tr (Negative) 12/12/17 Unknown Urine WBC (Auto) 11.0 /HPF (0.0-6.0) H 12/12/17 Unknown Urine RBC (Auto) 3.0 /HPF (0.0-6.0) 12/12/17 Unknown U Epithel Cells (Auto) 1.0 /HPF (0-13.0) 12/12/17 Unknown Urine Bacteria (Auto) 2+ /HPF (Negative) 12/12/17 Unknown Urine Mucus Few /HPF 12/12/17 Unknown Urine Eosinophils None seen (None Seen) 12/13/17 17:31 Urine Creatinine 199.9 mg/dL (0.1-20.0) H 12/13/17 17:31 Urine Sodium 10 mmol/L 12/13/17 17:31 Urine Total Protein 44 mg/dL (5-11.8) H 12/13/17 17:31 Acetaminophen < 5.0 ug/mL (10.0-30.0) L 12/12/17 23:39 Copper 99 mcg/dL (70-175) 12/13/17 13:17 RUSSELL Screen Negative (Negative) 12/13/17 10:44 Sm (Gamino) Antibody <1.0 AI (<1.0) 12/13/17 10:44 Hepatitis A IgM Ab Non-reactive (NonReactive) 12/12/17 23:39 Hep Bs Antigen Non-reactive (Negative) 12/12/17 23:39 Hep B Core IgM Ab Non-reactive (NonReactive) 12/12/17 23:39 Hepatitis C Antibody Non-reactive (NonReactive) 12/12/17 23:39
--- NOTE | 2017-12-17 11:08 | Gastroenterology Progress Note ---
Assessment and Plan 1. Acute on chronic liver failure 2. Jaundice 3. Cirrhosis -LFTs stable with no improvement -mental status unchanged -etiology unclear of acute liver injury superimposed on underlying cirrhosis- suspect DILI -will consult IR for possible liver bx -continue to trend labs and supportive care -will follow Subjective Date of service: 12/17/17 Principal diagnosis: cirrhosis with liver failure Interval history: Patient resting in bed w/o acute distress or events overnight. Family at bedside. States he "feels drained" with continued minimal PO intake. Denies abd pain, N/V, changes in mentation, or signs of bleeding. Objective - Constitutional Vitals: Temp Pulse Resp BP Pulse Ox 98.3 F 83 18 135/57 95 12/16/17 21:49 12/16/17 21:49 12/16/17 21:49 12/16/17 21:49 12/16/17 08:34 General appearance: no acute distress, obese - EENT Eyes: scleral icterus - Respiratory Respiratory: bilateral: CTA - Cardiovascular Rhythm: regular Heart Sounds: Present: S1 & S2 - Gastrointestinal General gastrointestinal: Present: soft, non-tender, distended (mild), normal bowel sounds - Integumentary Integumentary: Present: warm, dry - Neurologic Neurological: alert and oriented x3 - Labs CBC & Chem 7: 12/16/17 05:22 12/17/17 06:48 Labs: Laboratory Results - last 24 hr 12/13/17 12/13/17 12/16/17 10:44 10:44 05:22 Add Manual Diff Complete Total Counted 100 Seg Neuts % (Manual) 78.0 H Band Neutrophils % 0 Lymphocytes % (Manual) 6.0 L Reactive Lymphs % (Man) 0 Monocytes % (Manual) 6.0 Eosinophils % (Manual) 9.0 H Basophils % (Manual) 1.0 Metamyelocytes % 0 Myelocytes % 0 Promyelocytes % 0 Blast Cells % 0 Nucleated RBC % Not Reportable Seg Neutrophils # Man 10.3 H Band Neutrophils # 0.0 Lymphocytes # (Manual) 0.8 L Abs React Lymphs (Man) 0.0 Monocytes # (Manual) 0.8 Eosinophils # (Manual) 1.2 H Basophils # (Manual) 0.1 Metamyelocytes # 0.0 Myelocytes # 0.0 Promyelocytes # 0.0 Blast Cells # 0.0 WBC Morphology Not Reportable Hypersegmented Neuts Not Reportable Hyposegmented Neuts Not Reportable Hypogranular Neuts Not Reportable Smudge Cells Not Reportable Toxic Granulation Not Reportable Toxic Vacuolation Not Reportable Dohle Bodies Not Reportable Pelger-Huet Anomaly Not Reportable Phyllis Rods Not Reportable Platelet Estimate Consistent w auto Clumped Platelets Not Reportable Plt Clumps, EDTA Not Reportable Large Platelets Not Reportable Giant Platelets Not Reportable Platelet Satelliting Not Reportable Plt Morphology Comment Not Reportable RBC Morphology Not Reportable Dimorphic RBCs Not Reportable Polychromasia Not Reportable Hypochromasia Not Reportable Poikilocytosis Not Reportable Anisocytosis 1+ Microcytosis Not Reportable Macrocytosis Not Reportable Spherocytes Not Reportable Pappenheimer Bodies Not Reportable Sickle Cells Not Reportable Target Cells 1+ Tear Drop Cells Not Reportable Ovalocytes Not Reportable Helmet Cells Not Reportable [place] Bodies Not Reportable [place] Rings Not Reportable [place] Cells Not Reportable Bite Cells Not Reportable Crenated Cell Not Reportable Elliptocytes Not Reportable Acanthocytes (Spur) Not Reportable Rouleaux Not Reportable Hemoglobin C Crystals Not Reportable Schistocytes Not Reportable Malaria parasites Not Reportable Pedro Bodies Not Reportable Hem Pathologist Commnt No PT INR Sodium Potassium Chloride Carbon Dioxide Anion Gap BUN Creatinine Estimated GFR BUN/Creatinine Ratio Glucose Calcium Total Bilirubin AST ALT Alkaline Phosphatase Total Protein Albumin Albumin/Globulin Ratio RUSSELL Screen Negative Sm (Gamino) Antibody <1.0 12/17/17 12/17/17 06:48 06:48 Add Manual Diff Total Counted Seg Neuts % (Manual) Band Neutrophils % Lymphocytes % (Manual) Reactive Lymphs % (Man) Monocytes % (Manual) Eosinophils % (Manual) Basophils % (Manual) Metamyelocytes % Myelocytes % Promyelocytes % Blast Cells % Nucleated RBC % Seg Neutrophils # Man Band Neutrophils # Lymphocytes # (Manual) Abs React Lymphs (Man) Monocytes # (Manual) Eosinophils # (Manual) Basophils # (Manual) Metamyelocytes # Myelocytes # Promyelocytes # Blast Cells # WBC Morphology Hypersegmented Neuts Hyposegmented Neuts Hypogranular Neuts Smudge Cells Toxic Granulation Toxic Vacuolation Dohle Bodies Pelger-Huet Anomaly Phyllis Rods Platelet Estimate Clumped Platelets Plt Clumps, EDTA Large Platelets Giant Platelets Platelet Satelliting Plt Morphology Comment RBC Morphology Dimorphic RBCs Polychromasia Hypochromasia Poikilocytosis Anisocytosis Microcytosis Macrocytosis Spherocytes Pappenheimer Bodies Sickle Cells Target Cells Tear Drop Cells Ovalocytes Helmet Cells [place] Bodies [place] Rings Brijesh Cells Bite Cells Crenated Cell Elliptocytes Acanthocytes (Spur) Rouleaux Hemoglobin C Crystals Schistocytes Malaria parasites Pedro Bodies Hem Pathologist Commnt PT 19.8 H INR 1.58 H Sodium 136 L Potassium 4.1 Chloride 97.5 L Carbon Dioxide 24 Anion Gap 19 BUN 65 H Creatinine 1.4 Estimated GFR > 60 BUN/Creatinine Ratio 46 Glucose 102 H Calcium 7.9 L Total Bilirubin 23.00 H AST 237 H ALT 87 H Alkaline Phosphatase 81 Total Protein 5.7 L Albumin 2.7 L Albumin/Globulin Ratio 0.9 RUSSELL Screen Sm (Gamino) Antibody
[2017-12-17] MEDS: SODIUM CHLORIDE FLUSH SYRINGE 10 ML IV SCH ×2 (14:49→23:14)
[2017-12-18 06:31] LABS: INR 1.56 (0.87-1.13)
[2017-12-18 07:01] LABS: Alanine Aminotransferase 89 units/L (7-56); Albumin 2.7 g/dL (3.9-5); BUN/Creatinine Ratio 45; Blood Urea Nitrogen 54 mg/dL (9-20); Calcium 7.7 mg/dL (8.4-10.2); Hemolysis Index 3
[2017-12-18 10:18] LABS: Alanine Aminotransferase 87 units/L (7-56); Albumin 2.8 g/dL (3.9-5); BUN/Creatinine Ratio 46; Blood Urea Nitrogen 55 mg/dL (9-20); Calcium 7.9 mg/dL (8.4-10.2); Hemolysis Index 5
--- NOTE | 2017-12-18 11:30 | Progress Note ---
Assessment and Plan Assessment and plan: --Cirrhosis liver; workup is in progress Hepatitis panel negative, possible liver biopsy today Recommended MRI with contrast, renal function is improved --Large ascites; oxygen as needed, consider paracentesis. On the fluid analysis --Coagulopathy; secondary to cirrhosis, closely monitor, consider vitamin K as needed --Acute on chronic kidney disease stage III; resolved -- urinary tract infection, present on admission, Continue empiric antibiotics, cultures negative to date --Severe hypoalbuminemia, protein calorie malnutrition, nutrition supplements and supportive care --DVT prophylaxis with SCD and no pharmacologic anticoagulation in view of coagulopathy and cirrhosis GI evaluation recommendation noted appreciated Plan of care reviewed with the patient and his nurse History Interval history: Patient seen and examined, no overnight events reported by the nursing staff This morning the nurse reports that patient had brownish stool and possible rectal bleeding Advised stool for occult blood Patient Feels slightly better, transaminases still elevated Patient is icteric, complains of mild nausea Vital signs reviewed Hospitalist Physical - Constitutional Vitals: Temp Pulse Resp BP Pulse Ox 98.1 F 85 16 114/79 98 12/18/17 08:14 12/18/17 08:14 12/18/17 08:14 12/18/17 08:14 12/18/17 01:19 General appearance: Present: no acute distress, well-nourished, obese - EENT Eyes: Present: PERRL, EOM intact, scleral icterus - Neck Neck: Present: supple, normal ROM - Respiratory Respiratory effort: normal Respiratory: bilateral: diminished, rales, negative: rhonchi, wheezing - Cardiovascular Rhythm: regular Heart Sounds: Present: S1 & S2 - Extremities Extremities: no ischemia, No edema - Abdominal General gastrointestinal: soft, non-tender, distended, normal bowel sounds, other - Integumentary Integumentary: Present: clear, warm - Psychiatric Psychiatric: appropriate mood/affect, cooperative - Neurologic Neurologic: CNII-XII intact, moves all extremities Results - Labs CBC & Chem 7: 12/16/17 05:22 12/18/17 07:12 Labs: Laboratory Last Values WBC 13.2 K/mm3 (4.5-11.0) H 12/16/17 05:22 RBC 3.69 M/mm3 (3.65-5.03) 12/16/17 05:22 Hgb 11.8 gm/dl (11.8-15.2) 12/16/17 05:22 Hct 33.9 % (35.5-45.6) L 12/16/17 05:22 MCV 92 fl (84-94) 12/16/17 05:22 MCH 32 pg (28-32) 12/16/17 05:22 MCHC 35 % (32-34) H 12/16/17 05:22 RDW 22.6 % (13.2-15.2) H 12/16/17 05:22 Plt Count 134 K/mm3 (140-440) L 12/16/17 05:22 [place] % (Auto) 13.2 % (0.0-7.3) H 12/16/17 05:22 Eos % (Auto) 4.1 % (0.0-4.3) 12/16/17 05:22 [place] # 1.8 K/mm3 (0.0-0.8) H 12/16/17 05:22 Eos # 0.5 K/mm3 (0.0-0.4) H 12/16/17 05:22 Baso # 0.0 K/mm3 (0.0-0.1) 12/16/17 05:22 Add Manual Diff Complete 12/16/17 05:22 Total Counted 100 12/16/17 05:22 Seg Neutrophils % 72.0 % (40.0-70.0) H 12/16/17 05:22 Seg Neuts % (Manual) 78.0 % (40.0-70.0) H 12/16/17 05:22 Band Neutrophils % 0 % 12/16/17 05:22 Lymphocytes % (Manual) 6.0 % (13.4-35.0) L 12/16/17 05:22 Reactive Lymphs % (Man) 0 % 12/16/17 05:22 Monocytes % (Manual) 6.0 % (0.0-7.3) 12/16/17 05:22 Eosinophils % (Manual) 9.0 % (0.0-4.3) H 12/16/17 05:22 Basophils % (Manual) 1.0 % (0.0-1.8) 12/16/17 05:22 Metamyelocytes % 0 % 12/16/17 05:22 Myelocytes % 0 % 12/16/17 05:22 Promyelocytes % 0 % 12/16/17 05:22 Blast Cells % 0 % 12/16/17 05:22 Nucleated RBC % Not Reportable 12/16/17 05:22 Seg Neutrophils # 9.5 K/mm3 (1.8-7.7) H 12/16/17 05:22 Seg Neutrophils # Man 10.3 K/mm3 (1.8-7.7) H 12/16/17 05:22 Band Neutrophils # 0.0 K/mm3 12/16/17 05:22 Lymphocytes # (Manual) 0.8 K/mm3 (1.2-5.4) L 12/16/17 05:22 Abs React Lymphs (Man) 0.0 K/mm3 12/16/17 05:22 Monocytes # (Manual) 0.8 K/mm3 (0.0-0.8) 12/16/17 05:22 Eosinophils # (Manual) 1.2 K/mm3 (0.0-0.4) H 12/16/17 05:22 Basophils # (Manual) 0.1 K/mm3 (0.0-0.1) 12/16/17 05:22 Metamyelocytes # 0.0 K/mm3 12/16/17 05:22 Myelocytes # 0.0 K/mm3 12/16/17 05:22 Promyelocytes # 0.0 K/mm3 12/16/17 05:22 Blast Cells # 0.0 K/mm3 12/16/17 05:22 WBC Morphology Not Reportable 12/16/17 05:22 Hypersegmented Neuts Not Reportable 12/16/17 05:22 Hyposegmented Neuts Not Reportable 12/16/17 05:22 Hypogranular Neuts Not Reportable 12/16/17 05:22 Smudge Cells Not Reportable 12/16/17 05:22 Toxic Granulation Not Reportable 12/16/17 05:22 Toxic Vacuolation Not Reportable 12/16/17 05:22 Dohle Bodies Not Reportable 12/16/17 05:22 Pelger-Huet Anomaly Not Reportable 12/16/17 05:22 Phyllis Rods Not Reportable 12/16/17 05:22 Platelet Estimate Consistent w auto 12/16/17 05:22 Clumped Platelets Not Reportable 12/16/17 05:22 Plt Clumps, EDTA Not Reportable 12/16/17 05:22 Large Platelets Not Reportable 12/16/17 05:22 Giant Platelets Not Reportable 12/16/17 05:22 Platelet Satelliting Not Reportable 12/16/17 05:22 Plt Morphology Comment Not Reportable 12/16/17 05:22 RBC Morphology Not Reportable 12/16/17 05:22 Dimorphic RBCs Not Reportable 12/16/17 05:22 Polychromasia Not Reportable 12/16/17 05:22 Hypochromasia Not Reportable 12/16/17 05:22 Poikilocytosis Not Reportable 12/16/17 05:22 Anisocytosis 1+ 12/16/17 05:22 Microcytosis Not Reportable 12/16/17 05:22 Macrocytosis Not Reportable 12/16/17 05:22 Spherocytes Not Reportable 12/16/17 05:22 Pappenheimer Bodies Not Reportable 12/16/17 05:22 Sickle Cells Not Reportable 12/16/17 05:22 Target Cells 1+ 12/16/17 05:22 Tear Drop Cells Not Reportable 12/16/17 05:22 Ovalocytes Not Reportable 12/16/17 05:22 Helmet Cells Not Reportable 12/16/17 05:22 [place] Bodies Not Reportable 12/16/17 05:22 [place] Rings Not Reportable 12/16/17 05:22 Brijesh Cells Not Reportable 12/16/17 05:22 Bite Cells Not Reportable 12/16/17 05:22 Crenated Cell Not Reportable 12/16/17 05:22 Elliptocytes Not Reportable 12/16/17 05:22 Acanthocytes (Spur) Not Reportable 12/16/17 05:22 Rouleaux Not Reportable 12/16/17 05:22 Hemoglobin C Crystals Not Reportable 12/16/17 05:22 Schistocytes Not Reportable 12/16/17 05:22 Malaria parasites Not Reportable 12/16/17 05:22 Pedro Bodies Not Reportable 12/16/17 05:22 Hem Pathologist Commnt No 12/16/17 05:22 PT 19.6 Sec. (12.2-14.9) H 12/18/17 05:25 INR 1.56 (0.87-1.13) H 12/18/17 05:25 APTT 34.8 Sec. (24.2-36.6) 12/12/17 22:06 Sodium 139 mmol/L (137-145) 12/18/17 07:12 Potassium 4.1 mmol/L (3.6-5.0) 12/18/17 07:12 Chloride 100.2 mmol/L (98-107) 12/18/17 07:12 Carbon Dioxide 23 mmol/L (22-30) 12/18/17 07:12 Anion Gap 20 mmol/L 12/18/17 07:12 BUN 55 mg/dL (9-20) H 12/18/17 07:12 Creatinine 1.2 mg/dL (0.8-1.5) 12/18/17 07:12 Estimated GFR > 60 ml/min 12/18/17 07:12 BUN/Creatinine Ratio 46 % 12/18/17 07:12 Glucose 105 mg/dL (75-100) H 12/18/17 07:12 Osmolality 304 Mosm/kg 12/14/17 06:55 Calcium 7.9 mg/dL (8.4-10.2) L 12/18/17 07:12 Phosphorus 3.60 mg/dL (2.5-4.5) 12/14/17 06:55 Iron 48 ug/dL (49-181) L 12/13/17 10:44 TIBC 168 mcg/dL (250-450) L 12/13/17 10:44 Ferritin 508.4 ng/mL (13.0-400.0) H 12/13/17 10:44 Total Bilirubin 20.70 mg/dL (0.1-1.2) H 12/18/17 07:12 Direct Bilirubin 16.7 mg/dL (0-0.2) H 12/12/17 22:06 Indirect Bilirubin 11.7 mg/dL 12/12/17 22:06 AST 247 units/L (5-40) H 12/18/17 07:12 ALT 87 units/L (7-56) H 12/18/17 07:12 Alkaline Phosphatase 94 units/L (35-129) 12/18/17 07:12 Ammonia 10.0 umol/L (25-60) L 12/12/17 23:50 Total Protein 5.8 g/dL (6.3-8.2) L 12/18/17 07:12 Albumin 2.8 g/dL (3.9-5) L 12/18/17 07:12 Albumin/Globulin Ratio 0.9 % 12/18/17 07:12 Ceruloplasmin 27 mg/dL (18-36) 12/13/17 10:44 Lipase 230 units/L (13-60) H 12/12/17 23:35 Urine Color Chasity (Yellow) 12/12/17 Unknown Urine Turbidity Clear (Clear) 12/12/17 Unknown Urine pH 5.0 (5.0-7.0) 12/12/17 Unknown Ur Specific [place] 1.016 (1.003-1.030) 12/12/17 Unknown Urine Protein <15 mg/dl mg/dL (Negative) 12/12/17 Unknown Urine Glucose (UA) Neg mg/dL (Negative) 12/12/17 Unknown Urine Ketones Neg mg/dL (Negative) 12/12/17 Unknown Urine Blood Mod (Negative) 12/12/17 Unknown Urine Nitrite Neg (Negative) 12/12/17 Unknown Urine Bilirubin Mod (Negative) 12/12/17 Unknown Urine Ictotest Positive (Negative) 12/12/17 Unknown Urine Urobilinogen 4.0 mg/dL (<2.0) 12/12/17 Unknown Ur Leukocyte Esterase Tr (Negative) 12/12/17 Unknown Urine WBC (Auto) 11.0 /HPF (0.0-6.0) H 12/12/17 Unknown Urine RBC (Auto) 3.0 /HPF (0.0-6.0) 12/12/17 Unknown U Epithel Cells (Auto) 1.0 /HPF (0-13.0) 12/12/17 Unknown Urine Bacteria (Auto) 2+ /HPF (Negative) 12/12/17 Unknown Urine Mucus Few /HPF 12/12/17 Unknown Urine Eosinophils None seen (None Seen) 12/13/17 17:31 Urine Creatinine 199.9 mg/dL (0.1-20.0) H 12/13/17 17:31 Urine Sodium 10 mmol/L 12/13/17 17:31 Urine Total Protein 44 mg/dL (5-11.8) H 12/13/17 17:31 Acetaminophen < 5.0 ug/mL (10.0-30.0) L 12/12/17 23:39 Copper 99 mcg/dL (70-175) 12/13/17 13:17 RUSSELL Screen Negative (Negative) 12/13/17 10:44 Sm (Gamino) Antibody <1.0 AI (<1.0) 12/13/17 10:44 Hepatitis A IgM Ab Non-reactive (NonReactive) 12/12/17 23:39 Hep Bs Antigen Non-reactive (Negative) 12/12/17 23:39 Hep B Core IgM Ab Non-reactive (NonReactive) 12/12/17 23:39 Hepatitis C Antibody Non-reactive (NonReactive) 12/12/17 23:39
[2017-12-18] MEDS ORDERED: HEPARIN/NS 5000 UNIT/500ML(CATH LAB) 0 ML IR ONE (12:28)
[2017-12-18] MEDS ORDERED: NACL 0.9% 500 ML IR ONE (12:29)
[2017-12-18] MEDS ORDERED: XYLOCAINE 2% INFILTRATI ONE (12:29)
[2017-12-18] MEDS ORDERED: NACL 0.9% 250ML 250 ML ONE (12:30)
[2017-12-18] MEDS ORDERED: ANCEF/STERILE WATER 2 GM/20 ML 2 GM/20 ML SYRINGE IV ONE (12:30)
--- NOTE | 2017-12-18 13:05 | Progress Note ---
Assessment and Plan (1) [id number] renal failure Current Visit: Yes Status: Acute Plan to address problem: stable kidney function Avoid Nephrotoxic agents Renally dose medications Obtain daily weights Monitor I/O's Bebeto present:Yes (2) Cirrhosis of liver Current Visit: Yes Status: Acute Plan to address problem: liver biopsy by IR today Gastroenterology onboard (3) Leukocytosis Current Visit: Yes Status: Acute Plan to address problem: Possibly secondary to UTI- finished rocephin course Subjective Date of service: 12/18/17 Principal diagnosis: cirrhosis with liver failure Interval history: patient was in the shower this AM Objective - Vital Signs Vital signs: Vital Signs - 12hr 12/18/17 12/18/17 12/18/17 01:19 08:14 12:27 Temperature 98.8 F 98.1 F 98.6 F Pulse Rate 85 85 72 Respiratory 20 16 20 Rate Blood Pressure 156/82 114/79 140/70 [Right] O2 Sat by Pulse 98 Oximetry - Lab 12/16/17 05:22 12/18/17 07:12 Most recent lab results Calcium 7.9 mg/dL (8.4-10.2) L 12/18/17 07:12 Phosphorus 3.60 mg/dL (2.5-4.5) 12/14/17 06:55 Urine Creatinine 199.9 mg/dL (0.1-20.0) H 12/13/17 17:31 Urine Sodium 10 mmol/L 12/13/17 17:31 Urine Total Protein 44 mg/dL (5-11.8) H 12/13/17 17:31
[2017-12-18] MEDS: VERSED ONE ×2 (13:47→13:49)
[2017-12-18] MEDS: SUBLIMAZE ONE ×3 (13:47→14:01)
--- NOTE | 2017-12-18 15:13 | Operative Report ---
Operative Report Operative Report: Procedure: 1. Catheterization of the inferior vena cava via the right internal jugular vein. 2. Hepatic venography Date of Procedure: 12/18/2017 History/Indication: 57-year-old male with abnormal liver function tests, ascites, and elevated INR. He is in need of liver biopsy. Physician: Ivonne Foster MD Technique/Procedural Details: The patient was placed in the supine position and prepped and draped in the usual sterile fashion. A timeout was performed. Local anesthetic was administered. Using a micropuncture technique, a 21-gauge needle was used to access the right internal jugular vein and exchanged for a 5 [place] vascular sheath. Via the 5 [place] vascular sheath, a Glidewire and 4 [place] vertebral catheter were maneuvered into the IVC. The 4 [place] vertebral catheter was exchanged for a 10 [place] vascular sheath. Through the vascular sheath, a 5 [place] MPA catheter was used to select a hepatic vein. Hepatic venography was performed. This was repeated for another hepatic vein branch. Ultimately, all wires and catheters were removed, and hemostasis was achieved with manual pressure. A sterile dressing was placed. Discussion: Maneuvering from the right atrium into the IVC was extremely difficult because of the diminutive size of the IVC. Additionally, due to the large amount of ascites and shrunken/cirrhotic nature of the liver, exact positioning within the hepatic vein was difficult to determine, and as such it was not possible to ascertain which hepatic vein was selected. Given this issue plus the small size of the liver, this greatly increased the chance of an extracapsular puncture from inside the liver. As such, the procedure was stopped due to this potential risk. Specimen: None EBL: <5 cc
--- NOTE | 2017-12-18 15:14 | Event Note ---
Date: 12/18/17 Unable to perform TJ liver biospy (see procedure note). I have discussed this with Dr. Fay of gastroenterology. I conveyed to him that if tissue is required, we can completely drain the ascites and do a percutaneous biopsy under CT guidance. He is unsure whether this measure is necessary at the moment and will get back to us tomorrow or later on this week.
--- NOTE | 2017-12-18 15:55 | Event Note ---
Date: 12/18/17 Discussed with IR, unable to safely obtain liver biopsy today. bilirubin slightly improved since admission. trend liver enzymes, obtain diagnostic/ therapeutic paracentesis tomorrow. further management based on labs tomorrow ( if bilirubin improving, can continue close monitoring of labs as this may be consistent with DILI; if remains elevated, options would be due to attempt liver biopsy after paracentesis vs referral to transplant center).
[2017-12-18] MEDS: SODIUM CHLORIDE FLUSH SYRINGE 10 ML IV SCH (17:05)
[2017-12-18] MEDS: cefTRIAXone 1 GM in NACL 0.9% 20 ML IV SCH (17:07)
[2017-12-19] MEDS: SODIUM CHLORIDE FLUSH SYRINGE 10 ML IV SCH ×3 (05:41→22:00)
[2017-12-19 06:32] LABS: Alanine Aminotransferase 76 units/L (7-56); Albumin 2.6 g/dL (3.9-5); BUN/Creatinine Ratio 42; Blood Urea Nitrogen 50 mg/dL (9-20); Calcium 7.7 mg/dL (8.4-10.2); Hemolysis Index 2
--- NOTE | 2017-12-19 09:22 | Progress Note ---
Assessment and Plan Assessment and plan: --Large ascites; oxygen as needed, consider paracentesis. and fluid analysis --Cirrhosis liver; workup is in progress Hepatitis panel negative, possible liver biopsy today Recommended MRI with contrast, renal function is improved --Coagulopathy; secondary to cirrhosis, closely monitor, consider vitamin K as needed --Acute on chronic kidney disease stage III; resolved -- urinary tract infection, present on admission, Continue empiric antibiotics, cultures negative to date --Severe hypoalbuminemia, protein calorie malnutrition, nutrition supplements and supportive care --DVT prophylaxis with SCD and no pharmacologic anticoagulation in view of coagulopathy and cirrhosis GI evaluation recommendation noted appreciated Plan of care reviewed with the patient and his nurse History Interval history: patient feels better No new complaints, but rescheduled for paracentesis for tomorrow LFTs are slowly trending down Hospitalist Physical - Constitutional Vitals: Temp Pulse Resp BP Pulse Ox 98.5 F 87 22 146/77 98 12/19/17 07:59 12/19/17 07:59 12/19/17 07:59 12/19/17 07:59 12/19/17 07:59 General appearance: Present: no acute distress, well-nourished, obese - EENT Eyes: Present: PERRL, EOM intact, scleral icterus - Neck Neck: Present: supple, normal ROM - Respiratory Respiratory effort: normal Respiratory: bilateral: diminished, rales, negative: rhonchi, wheezing - Cardiovascular Rhythm: regular Heart Sounds: Present: S1 & S2 - Extremities Extremities: no ischemia Extremity abnormal: edema - Abdominal General gastrointestinal: soft, non-tender, distended, normal bowel sounds - Integumentary Integumentary: Present: clear, warm, jaundice - Psychiatric Psychiatric: appropriate mood/affect, cooperative - Neurologic Neurologic: CNII-XII intact, moves all extremities Results - Labs CBC & Chem 7: 12/20/17 07:00 12/20/17 07:00 Labs: Laboratory Last Values WBC 13.2 K/mm3 (4.5-11.0) H 12/16/17 05:22 RBC 3.69 M/mm3 (3.65-5.03) 12/16/17 05:22 Hgb 11.8 gm/dl (11.8-15.2) 12/16/17 05:22 Hct 33.9 % (35.5-45.6) L 12/16/17 05:22 MCV 92 fl (84-94) 12/16/17 05:22 MCH 32 pg (28-32) 12/16/17 05:22 MCHC 35 % (32-34) H 12/16/17 05:22 RDW 22.6 % (13.2-15.2) H 12/16/17 05:22 Plt Count 134 K/mm3 (140-440) L 12/16/17 05:22 [place] % (Auto) 13.2 % (0.0-7.3) H 12/16/17 05:22 Eos % (Auto) 4.1 % (0.0-4.3) 12/16/17 05:22 [place] # 1.8 K/mm3 (0.0-0.8) H 12/16/17 05:22 Eos # 0.5 K/mm3 (0.0-0.4) H 12/16/17 05:22 Baso # 0.0 K/mm3 (0.0-0.1) 12/16/17 05:22 Add Manual Diff Complete 12/16/17 05:22 Total Counted 100 12/16/17 05:22 Seg Neutrophils % 72.0 % (40.0-70.0) H 12/16/17 05:22 Seg Neuts % (Manual) 78.0 % (40.0-70.0) H 12/16/17 05:22 Band Neutrophils % 0 % 12/16/17 05:22 Lymphocytes % (Manual) 6.0 % (13.4-35.0) L 12/16/17 05:22 Reactive Lymphs % (Man) 0 % 12/16/17 05:22 Monocytes % (Manual) 6.0 % (0.0-7.3) 12/16/17 05:22 Eosinophils % (Manual) 9.0 % (0.0-4.3) H 12/16/17 05:22 Basophils % (Manual) 1.0 % (0.0-1.8) 12/16/17 05:22 Metamyelocytes % 0 % 12/16/17 05:22 Myelocytes % 0 % 12/16/17 05:22 Promyelocytes % 0 % 12/16/17 05:22 Blast Cells % 0 % 12/16/17 05:22 Nucleated RBC % Not Reportable 12/16/17 05:22 Seg Neutrophils # 9.5 K/mm3 (1.8-7.7) H 12/16/17 05:22 Seg Neutrophils # Man 10.3 K/mm3 (1.8-7.7) H 12/16/17 05:22 Band Neutrophils # 0.0 K/mm3 12/16/17 05:22 Lymphocytes # (Manual) 0.8 K/mm3 (1.2-5.4) L 12/16/17 05:22 Abs React Lymphs (Man) 0.0 K/mm3 12/16/17 05:22 Monocytes # (Manual) 0.8 K/mm3 (0.0-0.8) 12/16/17 05:22 Eosinophils # (Manual) 1.2 K/mm3 (0.0-0.4) H 12/16/17 05:22 Basophils # (Manual) 0.1 K/mm3 (0.0-0.1) 12/16/17 05:22 Metamyelocytes # 0.0 K/mm3 12/16/17 05:22 Myelocytes # 0.0 K/mm3 12/16/17 05:22 Promyelocytes # 0.0 K/mm3 12/16/17 05:22 Blast Cells # 0.0 K/mm3 12/16/17 05:22 WBC Morphology Not Reportable 12/16/17 05:22 Hypersegmented Neuts Not Reportable 12/16/17 05:22 Hyposegmented Neuts Not Reportable 12/16/17 05:22 Hypogranular Neuts Not Reportable 12/16/17 05:22 Smudge Cells Not Reportable 12/16/17 05:22 Toxic Granulation Not Reportable 12/16/17 05:22 Toxic Vacuolation Not Reportable 12/16/17 05:22 Dohle Bodies Not Reportable 12/16/17 05:22 Pelger-Huet Anomaly Not Reportable 12/16/17 05:22 Phyllis Rods Not Reportable 12/16/17 05:22 Platelet Estimate Consistent w auto 12/16/17 05:22 Clumped Platelets Not Reportable 12/16/17 05:22 Plt Clumps, EDTA Not Reportable 12/16/17 05:22 Large Platelets Not Reportable 12/16/17 05:22 Giant Platelets Not Reportable 12/16/17 05:22 Platelet Satelliting Not Reportable 12/16/17 05:22 Plt Morphology Comment Not Reportable 12/16/17 05:22 RBC Morphology Not Reportable 12/16/17 05:22 Dimorphic RBCs Not Reportable 12/16/17 05:22 Polychromasia Not Reportable 12/16/17 05:22 Hypochromasia Not Reportable 12/16/17 05:22 Poikilocytosis Not Reportable 12/16/17 05:22 Anisocytosis 1+ 12/16/17 05:22 Microcytosis Not Reportable 12/16/17 05:22 Macrocytosis Not Reportable 12/16/17 05:22 Spherocytes Not Reportable 12/16/17 05:22 Pappenheimer Bodies Not Reportable 12/16/17 05:22 Sickle Cells Not Reportable 12/16/17 05:22 Target Cells 1+ 12/16/17 05:22 Tear Drop Cells Not Reportable 12/16/17 05:22 Ovalocytes Not Reportable 12/16/17 05:22 Helmet Cells Not Reportable 12/16/17 05:22 Pacheco-[place] Bodies Not Reportable 12/16/17 05:22 [place] Rings Not Reportable 12/16/17 05:22 Brijesh Cells Not Reportable 12/16/17 05:22 Bite Cells Not Reportable 12/16/17 05:22 Crenated Cell Not Reportable 12/16/17 05:22 Elliptocytes Not Reportable 12/16/17 05:22 Acanthocytes (Spur) Not Reportable 12/16/17 05:22 Rouleaux Not Reportable 12/16/17 05:22 Hemoglobin C Crystals Not Reportable 12/16/17 05:22 Schistocytes Not Reportable 12/16/17 05:22 Malaria parasites Not Reportable 12/16/17 05:22 Pedro Bodies Not Reportable 12/16/17 05:22 Hem Pathologist Commnt No 12/16/17 05:22 PT 19.6 Sec. (12.2-14.9) H 12/18/17 05:25 INR 1.56 (0.87-1.13) H 12/18/17 05:25 APTT 37.6 Sec. (24.2-36.6) H 12/19/17 05:22 Sodium 137 mmol/L (137-145) 12/19/17 05:22 Potassium 4.2 mmol/L (3.6-5.0) 12/19/17 05:22 Chloride 98.5 mmol/L (98-107) 12/19/17 05:22 Carbon Dioxide 24 mmol/L (22-30) 12/19/17 05:22 Anion Gap 19 mmol/L 12/19/17 05:22 BUN 50 mg/dL (9-20) H 12/19/17 05:22 Creatinine 1.2 mg/dL (0.8-1.5) 12/19/17 05:22 Estimated GFR > 60 ml/min 12/19/17 05:22 BUN/Creatinine Ratio 42 % 12/19/17 05:22 Glucose 109 mg/dL (75-100) H 12/19/17 05:22 Osmolality 304 Mosm/kg 12/14/17 06:55 Calcium 7.7 mg/dL (8.4-10.2) L 12/19/17 05:22 Phosphorus 3.60 mg/dL (2.5-4.5) 12/14/17 06:55 Iron 48 ug/dL (49-181) L 12/13/17 10:44 TIBC 168 mcg/dL (250-450) L 12/13/17 10:44 Ferritin 508.4 ng/mL (13.0-400.0) H 12/13/17 10:44 Total Bilirubin 18.20 mg/dL (0.1-1.2) H 12/19/17 05:22 Direct Bilirubin 16.7 mg/dL (0-0.2) H 12/12/17 22:06 Indirect Bilirubin 11.7 mg/dL 12/12/17 22:06 AST 232 units/L (5-40) H 12/19/17 05:22 ALT 76 units/L (7-56) H 12/19/17 05:22 Alkaline Phosphatase 79 units/L (35-129) 12/19/17 05:22 Ammonia 10.0 umol/L (25-60) L 12/12/17 23:50 Total Protein 5.8 g/dL (6.3-8.2) L 12/19/17 05:22 Albumin 2.6 g/dL (3.9-5) L 12/19/17 05:22 Albumin/Globulin Ratio 0.8 % 12/19/17 05:22 [id number] See scanned results 12/13/17 10:44 Ceruloplasmin 27 mg/dL (18-36) 12/13/17 10:44 Lipase 230 units/L (13-60) H 12/12/17 23:35 Tumor Marker AFP See scanned results 12/13/17 10:44 Urine Color Chasity (Yellow) 12/12/17 Unknown Urine Turbidity Clear (Clear) 12/12/17 Unknown Urine pH 5.0 (5.0-7.0) 12/12/17 Unknown Ur Specific [place] 1.016 (1.003-1.030) 12/12/17 Unknown Urine Protein <15 mg/dl mg/dL (Negative) 12/12/17 Unknown Urine Glucose (UA) Neg mg/dL (Negative) 12/12/17 Unknown Urine Ketones Neg mg/dL (Negative) 12/12/17 Unknown Urine Blood Mod (Negative) 12/12/17 Unknown Urine Nitrite Neg (Negative) 12/12/17 Unknown Urine Bilirubin Mod (Negative) 12/12/17 Unknown Urine Ictotest Positive (Negative) 12/12/17 Unknown Urine Urobilinogen 4.0 mg/dL (<2.0) 12/12/17 Unknown Ur Leukocyte Esterase Tr (Negative) 12/12/17 Unknown Urine WBC (Auto) 11.0 /HPF (0.0-6.0) H 12/12/17 Unknown Urine RBC (Auto) 3.0 /HPF (0.0-6.0) 12/12/17 Unknown U Epithel Cells (Auto) 1.0 /HPF (0-13.0) 12/12/17 Unknown Urine Bacteria (Auto) 2+ /HPF (Negative) 12/12/17 Unknown Urine Mucus Few /HPF 12/12/17 Unknown Urine Eosinophils None seen (None Seen) 12/13/17 17:31 Urine Creatinine 199.9 mg/dL (0.1-20.0) H 12/13/17 17:31 Urine Sodium 10 mmol/L 12/13/17 17:31 Urine Total Protein 44 mg/dL (5-11.8) H 12/13/17 17:31 Acetaminophen < 5.0 ug/mL (10.0-30.0) L 12/12/17 23:39 Copper 99 mcg/dL (70-175) 12/13/17 13:17 RUSSELL Screen Negative (Negative) 12/13/17 10:44 Sm (Gamino) Antibody <1.0 AI (<1.0) 12/13/17 10:44 Hepatitis A IgM Ab Non-reactive (NonReactive) 12/12/17 23:39 Hep Bs Antigen Non-reactive (Negative) 12/12/17 23:39 Hep B Core IgM Ab Non-reactive (NonReactive) 12/12/17 23:39 Hepatitis C Antibody Non-reactive (NonReactive) 12/12/17 23:39
[2017-12-19] MEDS: cefTRIAXone 1 GM in NACL 0.9% 20 ML IV SCH (10:00)
--- NOTE | 2017-12-19 12:21 | Gastroenterology Progress Note ---
<SILVIA MORRIS - Last Filed: 12/19/17 12:21> Assessment and Plan 1. Acute on chronic liver failure 2. Jaundice 3. Cirrhosis -LFTs trending down -mental status unchanged -etiology unclear of acute liver injury superimposed on underlying cirrhosis- suspect DILI -liver bx unable to be obtained yesterday -paracentesis pending for today -continue to trend labs and supportive care -anticipate d/c in 1-2 days if LFTs continue to improve (if not would attempt liver bx after paracentesis vs referral to transplant center) -will follow Subjective Date of service: 12/19/17 Principal diagnosis: cirrhosis with liver failure Interval history: No acute distress. Denies abd pain, N/V, or signs of bleeding. Objective - Constitutional Vitals: Temp Pulse Resp BP Pulse Ox 98.5 F 87 22 146/77 98 12/19/17 07:59 12/19/17 07:59 12/19/17 07:59 12/19/17 07:59 12/19/17 07:59 General appearance: no acute distress - EENT Eyes: scleral icterus - Respiratory Respiratory: bilateral: CTA - Cardiovascular Rhythm: regular Heart Sounds: Present: S1 & S2 - Gastrointestinal General gastrointestinal: Present: soft, non-tender, distended, normal bowel sounds - Neurologic Neurological: alert and oriented x3 - Labs CBC & Chem 7: 12/16/17 05:22 12/19/17 05:22 Labs: Laboratory Results - last 24 hr 12/13/17 12/13/17 12/19/17 10:44 10:44 05:22 APTT Sodium 137 Potassium 4.2 Chloride 98.5 Carbon Dioxide 24 Anion Gap 19 BUN 50 H Creatinine 1.2 Estimated GFR > 60 BUN/Creatinine Ratio 42 Glucose 109 H Calcium 7.7 L Total Bilirubin 18.20 H AST 232 H ALT 76 H Alkaline Phosphatase 79 Total Protein 5.8 L Albumin 2.6 L Albumin/Globulin Ratio 0.8 [id number] See scanned results Tumor Marker AFP See scanned results 12/19/17 05:22 APTT 37.6 H Sodium Potassium Chloride Carbon Dioxide Anion Gap BUN Creatinine Estimated GFR BUN/Creatinine Ratio Glucose Calcium Total Bilirubin AST ALT Alkaline Phosphatase Total Protein Albumin Albumin/Globulin Ratio [id number] Tumor Marker AFP <JONATHAN HERNÁNDEZ - Last Filed: 12/19/17 22:54> Assessment and Plan pt seen and examined. agree with note above. will order diagnostic (r/o SBP)/ therapeutic paracentesis. trend liver enzymes. if cont to improve, can hopefully be discharged soon with close outpt follow-up (and d/c of previous herbal/OTC meds). Objective - Constitutional Vitals: Temp Pulse Resp BP Pulse Ox 98.4 F 89 22 142/75 97 12/19/17 16:51 12/19/17 16:51 12/19/17 16:51 12/19/17 16:51 12/19/17 16:51 - Labs CBC & Chem 7: 12/16/17 05:22 12/19/17 05:22 Labs: Laboratory Results - last 24 hr 12/19/17 12/19/17 05:22 05:22 APTT 37.6 H Sodium 137 Potassium 4.2 Chloride 98.5 Carbon Dioxide 24 Anion Gap 19 BUN 50 H Creatinine 1.2 Estimated GFR > 60 BUN/Creatinine Ratio 42 Glucose 109 H Calcium 7.7 L Total Bilirubin 18.20 H AST 232 H ALT 76 H Alkaline Phosphatase 79 Total Protein 5.8 L Albumin 2.6 L Albumin/Globulin Ratio 0.8
--- NOTE | 2017-12-19 16:15 | Progress Note ---
Assessment and Plan Assessment and Plan Acute Kidney Injury secondary to prerenal on underlying chronic Kidney disease process: Renal function reviewed, stable, SCr level was 1.2 today, yesterday's SCr level was 1.2 Avoid Nephrotoxic agents Renally dose meds Obtain daily weights Strict intake and output Renal plan discussed with Dr Hough Continue supportive therapy Cirrhosis of liver: Elevated Bilirubin: Unable to complete liver biopsy on 12/18/17 Gastroenterology on board, scheduled to undergo paracentesis today Leukocytosis: No CBC today, repeat tomorrow Possibly secondary to UTI - on rocephin Subjective Date of service: 12/19/17 Principal diagnosis: cirrhosis with liver failure Interval history: Patient reports being hungry, npo in preparation for paracentesis procedure today, family at bedside Objective - Vital Signs Vital signs: Vital Signs - 12hr 12/19/17 07:59 Temperature 98.5 F Pulse Rate 87 Respiratory 22 Rate Blood Pressure 146/77 O2 Sat by Pulse 98 Oximetry - General Appearance General appearance: well-developed (no acute distress) EENT: ATNC, sclera incterus Neck: no JVD Respiratory: Present: Other (Lung sounds decreased bilaterally, unlabored) Cardiology: regular, S1S2 Gastrointestinal: normoactive bowel sounds, distended Integumentary: warm and dry Neurologic: alert and oriented x3 Musculoskeletal: other (trace edema to both lower extremities) Psychiatric: mood/affect appropriate, cooperative - Lab 12/16/17 05:22 12/19/17 05:22 Most recent lab results Calcium 7.7 mg/dL (8.4-10.2) L 12/19/17 05:22 Phosphorus 3.60 mg/dL (2.5-4.5) 12/14/17 06:55 Urine Creatinine 199.9 mg/dL (0.1-20.0) H 12/13/17 17:31 Urine Sodium 10 mmol/L 12/13/17 17:31 Urine Total Protein 44 mg/dL (5-11.8) H 12/13/17 17:31
[2017-12-20 07:48] LABS: Basophils # (Auto) 0.1 K/mm3 (0.0-0.1); Basophils % (Auto) 0.4 % (0.0-1.8); Eosinophils # (Auto) 0.6 K/mm3 (0.0-0.4); Eosinophils % (Auto) 3.7 % (0.0-4.3); Hematocrit 34.7 % (35.5-45.6); Hemoglobin 12.1 gm/dl (11.8-15.2); Lymphocytes # (Auto) 1.4 K/mm3 (1.2-5.4); Lymphocytes % (Auto) 9.6 % (13.4-35.0); Mean Corpuscular HGB Conc 35 % (32-34); Mean Corpuscular Hemoglobin 33 pg (28-32); Mean Corpuscular Volume 94 fl (84-94); Monocytes # (Auto) 1.7 K/mm3 (0.0-0.8); Monocytes % (Auto) 11.6 % (0.0-7.3); Platelet Count 124 K/mm3 (140-440); Red Blood Count 3.68 M/mm3 (3.65-5.03)
[2017-12-20 07:49] LABS: Red Cell Distribution Width 21.3 % (13.2-15.2)
[2017-12-20 08:05] LABS: Alanine Aminotransferase 71 units/L (7-56); Albumin 2.6 g/dL (3.9-5); BUN/Creatinine Ratio 41; Blood Urea Nitrogen 45 mg/dL (9-20); Calcium 8.2 mg/dL (8.4-10.2); Hemolysis Index 17
--- NOTE | 2017-12-20 09:43 | Progress Note ---
Assessment and Plan Acute Kidney Injury secondary to prerenal on underlying chronic Kidney disease process: resolved fluid restriction 1000 cc a day for hyponatremia Avoid Nephrotoxic agents Renally dose meds Obtain daily weights Strict intake and output Cirrhosis of liver: Elevated Bilirubin: Unable to complete liver biopsy on 12/18/17 Gastroenterology on board will sign off, please re consult if needed Subjective Date of service: 12/20/17 Principal diagnosis: cirrhosis with liver failure Interval history: comfortable Objective - Vital Signs Vital signs: Vital Signs - 12hr 12/19/17 12/20/17 22:00 08:01 Temperature 98.3 F Pulse Rate 83 Respiratory 22 Rate Respiratory 17 Rate [Abdomen] Blood Pressure 131/70 O2 Sat by Pulse 97 Oximetry - General Appearance General appearance: well-developed EENT: ATNC, PERRL, mucous membranes moist Neck: no JVD, no carotid bruit Respiratory: Present: Clear to Ascultation. Absent: Rales, Ronchi Cardiology: regular, S1S2 Gastrointestinal: normoactive bowel sounds, distended Integumentary: no rash, warm and dry Neurologic: no focal deficit, alert and oriented x3 Musculoskeletal: other (1+ pitting edema in BLE) Psychiatric: cooperative - Lab 12/20/17 07:00 12/20/17 07:00 Most recent lab results Calcium 8.2 mg/dL (8.4-10.2) L 12/20/17 07:00 Phosphorus 3.60 mg/dL (2.5-4.5) 12/14/17 06:55 Urine Creatinine 199.9 mg/dL (0.1-20.0) H 12/13/17 17:31 Urine Sodium 10 mmol/L 12/13/17 17:31 Urine Total Protein 44 mg/dL (5-11.8) H 12/13/17 17:31
[2017-12-20] MEDS: SODIUM CHLORIDE FLUSH SYRINGE 10 ML IV SCH ×2 (10:50→23:29)
[2017-12-20] MEDS: cefTRIAXone 1 GM in NACL 0.9% 20 ML IV SCH (10:50)
--- NOTE | 2017-12-20 10:58 | Gastroenterology Progress Note ---
<SILVIA MORRIS - Last Filed: 12/20/17 10:58> Assessment and Plan 1. Acute on chronic liver failure 2. Jaundice 3. Cirrhosis -etiology unclear of acute liver injury superimposed on underlying cirrhosis- suspect DILI -liver bx unsuccessful -diagnostic/therapeutic paracentesis pending (r/o SBP) -continue to trend labs and supportive care -if LFTs continue to improve hopefully pt will be discharged soon with close outpt follow up (and d/c of previous hebal/OTC meds) Subjective Date of service: 12/20/17 Principal diagnosis: cirrhosis with liver failure Interval history: No acute distress. Denies abd pain, N/V, or signs of bleeding. Objective - Constitutional Vitals: Temp Pulse Resp BP Pulse Ox 98.3 F 83 22 131/70 97 12/20/17 08:01 12/20/17 08:01 12/20/17 08:01 12/20/17 08:01 12/20/17 08:01 General appearance: no acute distress - EENT Eyes: PERRL, EOM intact, scleral icterus ENT: hearing intact - Respiratory Respiratory: bilateral: CTA - Cardiovascular Rhythm: regular Heart Sounds: Present: S1 & S2 - Gastrointestinal General gastrointestinal: Present: soft, non-tender, distended, normal bowel sounds - Integumentary Integumentary: Present: warm, dry - Neurologic Neurological: alert and oriented x3 - Labs CBC & Chem 7: 12/20/17 07:00 12/20/17 07:00 Labs: Laboratory Results - last 24 hr 12/20/17 12/20/17 07:00 07:00 WBC 15.0 H RBC 3.68 Hgb 12.1 Hct 34.7 L MCV 94 MCH 33 H MCHC 35 H RDW 21.3 H Plt Count 124 L Lymph % (Auto) 9.6 L [place] % (Auto) 11.6 H Eos % (Auto) 3.7 Baso % (Auto) 0.4 Lymph # 1.4 [place] # 1.7 H Eos # 0.6 H Baso # 0.1 Seg Neutrophils % 74.7 H Seg Neutrophils # 11.2 H Sodium 135 L Potassium 4.1 Chloride 98.0 Carbon Dioxide 25 Anion Gap 16 BUN 45 H Creatinine 1.1 Estimated GFR > 60 BUN/Creatinine Ratio 41 Glucose 98 Calcium 8.2 L Total Bilirubin 18.70 H AST 249 H ALT 71 H Alkaline Phosphatase 81 Total Protein 6.3 Albumin 2.6 L Albumin/Globulin Ratio 0.7 <BETTYESEJONATHAN A - Last Filed: 12/20/17 20:44> Assessment and Plan pt seen and examined. agree with note above. liver enzymes stable, paracentesis (diagnostic/therapeutic) pending today. Objective - Constitutional Vitals: Temp Pulse Resp BP Pulse Ox 98.9 F 82 20 136/69 99 12/20/17 15:12 12/20/17 15:12 12/20/17 15:12 12/20/17 15:12 12/20/17 15:12 - Labs CBC & Chem 7: 12/20/17 07:00 12/20/17 07:00 Labs: Laboratory Results - last 24 hr 12/19/17 12/20/17 12/20/17 Unknown 07:00 07:00 WBC 15.0 H RBC 3.68 Hgb 12.1 Hct 34.7 L MCV 94 MCH 33 H MCHC 35 H RDW 21.3 H Plt Count 124 L Lymph % (Auto) 9.6 L [place] % (Auto) 11.6 H Eos % (Auto) 3.7 Baso % (Auto) 0.4 Lymph # 1.4 [place] # 1.7 H Eos # 0.6 H Baso # 0.1 Seg Neutrophils % 74.7 H Seg Neutrophils # 11.2 H Sodium 135 L Potassium 4.1 Chloride 98.0 Carbon Dioxide 25 Anion Gap 16 BUN 45 H Creatinine 1.1 Estimated GFR > 60 BUN/Creatinine Ratio 41 Glucose 98 Calcium 8.2 L Total Bilirubin 18.70 H AST 249 H ALT 71 H Alkaline Phosphatase 81 Total Protein 6.3 Albumin 2.6 L Albumin/Globulin Ratio 0.7 Fluid Type Ascitic Fluid Color Yellow Fluid Appearance Hazy Fluid WBC 255 Fluid RBC 308 Fluid Seg Neutrophils 55.0 Fluid Lymphocytes 13.0 Fluid Reactive Lymphs Not Reportable Fluid Monocytes 32.0 Fluid Eosinophils Not Reportable Fluid Basophils Not Reportable
--- NOTE | 2017-12-20 13:06 | Ultrasound Report ---
ULTRASOUND PARACENTESIS History: Ascites Description of procedure: Informed consent was obtained. Sterile technique was utilized. 1% lidocaine for skin anesthesia. Using ultrasound guidance, a 5 [place] centesis needle was advanced into the left lower quadrant peritoneal space. There was spontaneous return of clear yellow fluid. 2 L of fluid was aspirated. At 120 cc of fluid was sent to lab for analysis. No complications. Impression: Successful ultrasound-guided paracentesis.
[2017-12-20 15:26] LABS: Total Cells Counted 100 /mm3
--- NOTE | 2017-12-20 17:23 | Progress Note ---
Assessment and Plan Assessment and plan: --Large ascites; oxygen as needed, paracentesis rescheduled for today, fluid will be sent for analysis --Cirrhosis liver; workup is in progress Hepatitis panel negative, possible liver biopsy today --Coagulopathy; secondary to cirrhosis, closely monitor, consider vitamin K as needed --Acute on chronic kidney disease stage III; resolved -- urinary tract infection, present on admission, Continue empiric antibiotics, cultures negative to date --Severe hypoalbuminemia, protein calorie malnutrition, nutrition supplements and supportive care --DVT prophylaxis with SCD and no pharmacologic anticoagulation in view of coagulopathy and cirrhosis GI evaluation recommendation noted appreciated Plan of care reviewed with the patient and his nurse History Interval history: Patient seen and examined medical records reviewed Scheduled for ultrasound-guided paracentesis today Patient is comfortable in no new complaints Vital signs reviewed Hospitalist Physical - Constitutional Vitals: Temp Pulse Resp BP Pulse Ox 98.9 F 82 20 136/69 99 12/20/17 15:12 12/20/17 15:12 12/20/17 15:12 12/20/17 15:12 12/20/17 15:12 General appearance: Present: no acute distress, well-nourished, obese - EENT Eyes: Present: PERRL, EOM intact, scleral icterus - Neck Neck: Present: supple, normal ROM - Respiratory Respiratory effort: normal Respiratory: bilateral: diminished, rales, negative: rhonchi, wheezing - Cardiovascular Rhythm: regular Heart Sounds: Present: S1 & S2 - Extremities Extremities: no ischemia, pulses intact - Abdominal General gastrointestinal: soft, non-tender, distended, normal bowel sounds - Integumentary Integumentary: Present: clear, warm, jaundice - Psychiatric Psychiatric: appropriate mood/affect, cooperative - Neurologic Neurologic: CNII-XII intact, moves all extremities Results - Labs CBC & Chem 7: 12/20/17 07:00 12/20/17 07:00 Labs: Laboratory Last Values WBC 15.0 K/mm3 (4.5-11.0) H 12/20/17 07:00 RBC 3.68 M/mm3 (3.65-5.03) 12/20/17 07:00 Hgb 12.1 gm/dl (11.8-15.2) 12/20/17 07:00 Hct 34.7 % (35.5-45.6) L 12/20/17 07:00 MCV 94 fl (84-94) 12/20/17 07:00 MCH 33 pg (28-32) H 12/20/17 07:00 MCHC 35 % (32-34) H 12/20/17 07:00 RDW 21.3 % (13.2-15.2) H 12/20/17 07:00 Plt Count 124 K/mm3 (140-440) L 12/20/17 07:00 Lymph % (Auto) 9.6 % (13.4-35.0) L 12/20/17 07:00 [place] % (Auto) 11.6 % (0.0-7.3) H 12/20/17 07:00 Eos % (Auto) 3.7 % (0.0-4.3) 12/20/17 07:00 Baso % (Auto) 0.4 % (0.0-1.8) 12/20/17 07:00 Lymph # 1.4 K/mm3 (1.2-5.4) 12/20/17 07:00 [place] # 1.7 K/mm3 (0.0-0.8) H 12/20/17 07:00 Eos # 0.6 K/mm3 (0.0-0.4) H 12/20/17 07:00 Baso # 0.1 K/mm3 (0.0-0.1) 12/20/17 07:00 Add Manual Diff Complete 12/16/17 05:22 Total Counted 100 12/16/17 05:22 Seg Neutrophils % 74.7 % (40.0-70.0) H 12/20/17 07:00 Seg Neuts % (Manual) 78.0 % (40.0-70.0) H 12/16/17 05:22 Band Neutrophils % 0 % 12/16/17 05:22 Lymphocytes % (Manual) 6.0 % (13.4-35.0) L 12/16/17 05:22 Reactive Lymphs % (Man) 0 % 12/16/17 05:22 Monocytes % (Manual) 6.0 % (0.0-7.3) 12/16/17 05:22 Eosinophils % (Manual) 9.0 % (0.0-4.3) H 12/16/17 05:22 Basophils % (Manual) 1.0 % (0.0-1.8) 12/16/17 05:22 Metamyelocytes % 0 % 12/16/17 05:22 Myelocytes % 0 % 12/16/17 05:22 Promyelocytes % 0 % 12/16/17 05:22 Blast Cells % 0 % 12/16/17 05:22 Nucleated RBC % Not Reportable 12/16/17 05:22 Seg Neutrophils # 11.2 K/mm3 (1.8-7.7) H 12/20/17 07:00 Seg Neutrophils # Man 10.3 K/mm3 (1.8-7.7) H 12/16/17 05:22 Band Neutrophils # 0.0 K/mm3 12/16/17 05:22 Lymphocytes # (Manual) 0.8 K/mm3 (1.2-5.4) L 12/16/17 05:22 Abs React Lymphs (Man) 0.0 K/mm3 12/16/17 05:22 Monocytes # (Manual) 0.8 K/mm3 (0.0-0.8) 12/16/17 05:22 Eosinophils # (Manual) 1.2 K/mm3 (0.0-0.4) H 12/16/17 05:22 Basophils # (Manual) 0.1 K/mm3 (0.0-0.1) 12/16/17 05:22 Metamyelocytes # 0.0 K/mm3 12/16/17 05:22 Myelocytes # 0.0 K/mm3 12/16/17 05:22 Promyelocytes # 0.0 K/mm3 12/16/17 05:22 Blast Cells # 0.0 K/mm3 12/16/17 05:22 WBC Morphology Not Reportable 12/16/17 05:22 Hypersegmented Neuts Not Reportable 12/16/17 05:22 Hyposegmented Neuts Not Reportable 12/16/17 05:22 Hypogranular Neuts Not Reportable 12/16/17 05:22 Smudge Cells Not Reportable 12/16/17 05:22 Toxic Granulation Not Reportable 12/16/17 05:22 Toxic Vacuolation Not Reportable 12/16/17 05:22 Dohle Bodies Not Reportable 12/16/17 05:22 Pelger-Huet Anomaly Not Reportable 12/16/17 05:22 Phyllis Rods Not Reportable 12/16/17 05:22 Platelet Estimate Consistent w auto 12/16/17 05:22 Clumped Platelets Not Reportable 12/16/17 05:22 Plt Clumps, EDTA Not Reportable 12/16/17 05:22 Large Platelets Not Reportable 12/16/17 05:22 Giant Platelets Not Reportable 12/16/17 05:22 Platelet Satelliting Not Reportable 12/16/17 05:22 Plt Morphology Comment Not Reportable 12/16/17 05:22 RBC Morphology Not Reportable 12/16/17 05:22 Dimorphic RBCs Not Reportable 12/16/17 05:22 Polychromasia Not Reportable 12/16/17 05:22 Hypochromasia Not Reportable 12/16/17 05:22 Poikilocytosis Not Reportable 12/16/17 05:22 Anisocytosis 1+ 12/16/17 05:22 Microcytosis Not Reportable 12/16/17 05:22 Macrocytosis Not Reportable 12/16/17 05:22 Spherocytes Not Reportable 12/16/17 05:22 Pappenheimer Bodies Not Reportable 12/16/17 05:22 Sickle Cells Not Reportable 12/16/17 05:22 Target Cells 1+ 12/16/17 05:22 Tear Drop Cells Not Reportable 12/16/17 05:22 Ovalocytes Not Reportable 12/16/17 05:22 Helmet Cells Not Reportable 12/16/17 05:22 [place] Bodies Not Reportable 12/16/17 05:22 [place] Rings Not Reportable 12/16/17 05:22 Brijesh Cells Not Reportable 12/16/17 05:22 Bite Cells Not Reportable 12/16/17 05:22 Crenated Cell Not Reportable 12/16/17 05:22 Elliptocytes Not Reportable 12/16/17 05:22 Acanthocytes (Spur) Not Reportable 12/16/17 05:22 Rouleaux Not Reportable 12/16/17 05:22 Hemoglobin C Crystals Not Reportable 12/16/17 05:22 Schistocytes Not Reportable 12/16/17 05:22 Malaria parasites Not Reportable 12/16/17 05:22 Pedro Bodies Not Reportable 12/16/17 05:22 Hem Pathologist Commnt No 12/16/17 05:22 PT 19.6 Sec. (12.2-14.9) H 12/18/17 05:25 INR 1.56 (0.87-1.13) H 12/18/17 05:25 APTT 37.6 Sec. (24.2-36.6) H 12/19/17 05:22 Sodium 135 mmol/L (137-145) L 12/20/17 07:00 Potassium 4.1 mmol/L (3.6-5.0) 12/20/17 07:00 Chloride 98.0 mmol/L (98-107) 12/20/17 07:00 Carbon Dioxide 25 mmol/L (22-30) 12/20/17 07:00 Anion Gap 16 mmol/L 12/20/17 07:00 BUN 45 mg/dL (9-20) H 12/20/17 07:00 Creatinine 1.1 mg/dL (0.8-1.5) 12/20/17 07:00 Estimated GFR > 60 ml/min 12/20/17 07:00 BUN/Creatinine Ratio 41 % 12/20/17 07:00 Glucose 98 mg/dL (75-100) 12/20/17 07:00 Osmolality 304 Mosm/kg 12/14/17 06:55 Calcium 8.2 mg/dL (8.4-10.2) L 12/20/17 07:00 Phosphorus 3.60 mg/dL (2.5-4.5) 12/14/17 06:55 Iron 48 ug/dL (49-181) L 12/13/17 10:44 TIBC 168 mcg/dL (250-450) L 12/13/17 10:44 Ferritin 508.4 ng/mL (13.0-400.0) H 12/13/17 10:44 Total Bilirubin 18.70 mg/dL (0.1-1.2) H 12/20/17 07:00 Direct Bilirubin 16.7 mg/dL (0-0.2) H 12/12/17 22:06 Indirect Bilirubin 11.7 mg/dL 12/12/17 22:06 AST 249 units/L (5-40) H 12/20/17 07:00 ALT 71 units/L (7-56) H 12/20/17 07:00 Alkaline Phosphatase 81 units/L (35-129) 12/20/17 07:00 Ammonia 10.0 umol/L (25-60) L 12/12/17 23:50 Total Protein 6.3 g/dL (6.3-8.2) 12/20/17 07:00 Albumin 2.6 g/dL (3.9-5) L 12/20/17 07:00 Albumin/Globulin Ratio 0.7 % 12/20/17 07:00 [id number] See scanned results 12/13/17 10:44 Ceruloplasmin 27 mg/dL (18-36) 12/13/17 10:44 Lipase 230 units/L (13-60) H 12/12/17 23:35 Tumor Marker AFP See scanned results 12/13/17 10:44 Urine Color Chasity (Yellow) 12/12/17 Unknown Urine Turbidity Clear (Clear) 12/12/17 Unknown Urine pH 5.0 (5.0-7.0) 12/12/17 Unknown Ur Specific [place] 1.016 (1.003-1.030) 12/12/17 Unknown Urine Protein <15 mg/dl mg/dL (Negative) 12/12/17 Unknown Urine Glucose (UA) Neg mg/dL (Negative) 12/12/17 Unknown Urine Ketones Neg mg/dL (Negative) 12/12/17 Unknown Urine Blood Mod (Negative) 12/12/17 Unknown Urine Nitrite Neg (Negative) 12/12/17 Unknown Urine Bilirubin Mod (Negative) 12/12/17 Unknown Urine Ictotest Positive (Negative) 12/12/17 Unknown Urine Urobilinogen 4.0 mg/dL (<2.0) 12/12/17 Unknown Ur Leukocyte Esterase Tr (Negative) 12/12/17 Unknown Urine WBC (Auto) 11.0 /HPF (0.0-6.0) H 12/12/17 Unknown Urine RBC (Auto) 3.0 /HPF (0.0-6.0) 12/12/17 Unknown U Epithel Cells (Auto) 1.0 /HPF (0-13.0) 12/12/17 Unknown Urine Bacteria (Auto) 2+ /HPF (Negative) 12/12/17 Unknown Urine Mucus Few /HPF 12/12/17 Unknown Urine Eosinophils None seen (None Seen) 12/13/17 17:31 Urine Creatinine 199.9 mg/dL (0.1-20.0) H 12/13/17 17:31 Urine Sodium 10 mmol/L 12/13/17 17:31 Urine Total Protein 44 mg/dL (5-11.8) H 12/13/17 17:31 Fluid Type Ascitic 12/19/17 Unknown Fluid Color Yellow 12/19/17 Unknown Fluid Appearance Hazy 12/19/17 Unknown Fluid WBC 255 /mm3 12/19/17 Unknown Fluid RBC 308 /mm3 12/19/17 Unknown Fluid Seg Neutrophils 55.0 % 12/19/17 Unknown Fluid Lymphocytes 13.0 % 12/19/17 Unknown Fluid Reactive Lymphs Not Reportable 12/19/17 Unknown Fluid Monocytes 32.0 % 12/19/17 Unknown Fluid Eosinophils Not Reportable 12/19/17 Unknown Fluid Basophils Not Reportable 12/19/17 Unknown Acetaminophen < 5.0 ug/mL (10.0-30.0) L 12/12/17 23:39 Copper 99 mcg/dL (70-175) 12/13/17 13:17 RUSSELL Screen Negative (Negative) 12/13/17 10:44 Sm (Gamino) Antibody <1.0 AI (<1.0) 12/13/17 10:44 Hepatitis A IgM Ab Non-reactive (NonReactive) 12/12/17 23:39 Hep Bs Antigen Non-reactive (Negative) 12/12/17 23:39 Hep B Core IgM Ab Non-reactive (NonReactive) 12/12/17 23:39 Hepatitis C Antibody Non-reactive (NonReactive) 12/12/17 23:39
--- NOTE | 2017-12-20 17:27 | Event Note ---
Date: 12/20/17 Patient underwent ultrasound-guided paracentesis and removal of 2 L of clear yellow fluid, patient tolerated the procedure well, Fluid was sent for analysis, cultures The patient feels slightly better, follow peritoneal fluid analysis Continue current management
--- NOTE | 2017-12-21 09:59 | Progress Note ---
Assessment and Plan Assessment and plan: --Large ascites; s/p paracentesis , movable of 2 L of peritoneal fluid f/u fluid analysis --Cirrhosis liver; workup is in progress Hepatitis panel negative, possible liver biopsy today --Coagulopathy; secondary to cirrhosis, closely monitor, consider vitamin K as needed --Acute on chronic kidney disease stage III; resolved -- urinary tract infection, present on admission, Continue empiric antibiotics, cultures negative to date --Severe hypoalbuminemia, protein calorie malnutrition, nutrition supplements and supportive care --DVT prophylaxis with SCD and no pharmacologic anticoagulation in view of coagulopathy and cirrhosis GI evaluation recommendation noted appreciated Plan of care reviewed with the patient and his nurse History Interval history: Patient seen and examined medical records reviewed s/p ultrasound-guided paracentesis removal of 2 L of peritoneal fluid Fluid analysis in progress Patient is comfortable in no new complaints Vital signs reviewed Hospitalist Physical - Constitutional Vitals: Temp Pulse Resp BP Pulse Ox 98.7 F 81 20 139/70 99 12/21/17 07:35 12/21/17 07:35 12/21/17 07:35 12/21/17 07:35 12/21/17 07:35 General appearance: Present: no acute distress, well-nourished, obese - EENT Eyes: Present: PERRL, EOM intact - Neck Neck: Present: supple, normal ROM - Respiratory Respiratory effort: normal Respiratory: bilateral: diminished, negative: rales, rhonchi, wheezing - Cardiovascular Rhythm: regular Heart Sounds: Present: S1 & S2 - Extremities Extremities: no ischemia Extremity abnormal: edema - Abdominal General gastrointestinal: soft, non-tender, non-distended, distended, normal bowel sounds - Integumentary Integumentary: Present: clear, warm, jaundice - Psychiatric Psychiatric: appropriate mood/affect, cooperative - Neurologic Neurologic: CNII-XII intact, moves all extremities Results - Labs CBC & Chem 7: 12/20/17 07:00 12/21/17 09:37 Labs: Laboratory Last Values WBC 15.0 K/mm3 (4.5-11.0) H 12/20/17 07:00 RBC 3.68 M/mm3 (3.65-5.03) 12/20/17 07:00 Hgb 12.1 gm/dl (11.8-15.2) 12/20/17 07:00 Hct 34.7 % (35.5-45.6) L 12/20/17 07:00 MCV 94 fl (84-94) 12/20/17 07:00 MCH 33 pg (28-32) H 12/20/17 07:00 MCHC 35 % (32-34) H 12/20/17 07:00 RDW 21.3 % (13.2-15.2) H 12/20/17 07:00 Plt Count 124 K/mm3 (140-440) L 12/20/17 07:00 Lymph % (Auto) 9.6 % (13.4-35.0) L 12/20/17 07:00 [place] % (Auto) 11.6 % (0.0-7.3) H 12/20/17 07:00 Eos % (Auto) 3.7 % (0.0-4.3) 12/20/17 07:00 Baso % (Auto) 0.4 % (0.0-1.8) 12/20/17 07:00 Lymph # 1.4 K/mm3 (1.2-5.4) 12/20/17 07:00 [place] # 1.7 K/mm3 (0.0-0.8) H 12/20/17 07:00 Eos # 0.6 K/mm3 (0.0-0.4) H 12/20/17 07:00 Baso # 0.1 K/mm3 (0.0-0.1) 12/20/17 07:00 Add Manual Diff Complete 12/16/17 05:22 Total Counted 100 12/16/17 05:22 Seg Neutrophils % 74.7 % (40.0-70.0) H 12/20/17 07:00 Seg Neuts % (Manual) 78.0 % (40.0-70.0) H 12/16/17 05:22 Band Neutrophils % 0 % 12/16/17 05:22 Lymphocytes % (Manual) 6.0 % (13.4-35.0) L 12/16/17 05:22 Reactive Lymphs % (Man) 0 % 12/16/17 05:22 Monocytes % (Manual) 6.0 % (0.0-7.3) 12/16/17 05:22 Eosinophils % (Manual) 9.0 % (0.0-4.3) H 12/16/17 05:22 Basophils % (Manual) 1.0 % (0.0-1.8) 12/16/17 05:22 Metamyelocytes % 0 % 12/16/17 05:22 Myelocytes % 0 % 12/16/17 05:22 Promyelocytes % 0 % 12/16/17 05:22 Blast Cells % 0 % 12/16/17 05:22 Nucleated RBC % Not Reportable 12/16/17 05:22 Seg Neutrophils # 11.2 K/mm3 (1.8-7.7) H 12/20/17 07:00 Seg Neutrophils # Man 10.3 K/mm3 (1.8-7.7) H 12/16/17 05:22 Band Neutrophils # 0.0 K/mm3 12/16/17 05:22 Lymphocytes # (Manual) 0.8 K/mm3 (1.2-5.4) L 12/16/17 05:22 Abs React Lymphs (Man) 0.0 K/mm3 12/16/17 05:22 Monocytes # (Manual) 0.8 K/mm3 (0.0-0.8) 12/16/17 05:22 Eosinophils # (Manual) 1.2 K/mm3 (0.0-0.4) H 12/16/17 05:22 Basophils # (Manual) 0.1 K/mm3 (0.0-0.1) 12/16/17 05:22 Metamyelocytes # 0.0 K/mm3 12/16/17 05:22 Myelocytes # 0.0 K/mm3 12/16/17 05:22 Promyelocytes # 0.0 K/mm3 12/16/17 05:22 Blast Cells # 0.0 K/mm3 12/16/17 05:22 WBC Morphology Not Reportable 12/16/17 05:22 Hypersegmented Neuts Not Reportable 12/16/17 05:22 Hyposegmented Neuts Not Reportable 12/16/17 05:22 Hypogranular Neuts Not Reportable 12/16/17 05:22 Smudge Cells Not Reportable 12/16/17 05:22 Toxic Granulation Not Reportable 12/16/17 05:22 Toxic Vacuolation Not Reportable 12/16/17 05:22 Dohle Bodies Not Reportable 12/16/17 05:22 Pelger-Huet Anomaly Not Reportable 12/16/17 05:22 Phyllis Rods Not Reportable 12/16/17 05:22 Platelet Estimate Consistent w auto 12/16/17 05:22 Clumped Platelets Not Reportable 12/16/17 05:22 Plt Clumps, EDTA Not Reportable 12/16/17 05:22 Large Platelets Not Reportable 12/16/17 05:22 Giant Platelets Not Reportable 12/16/17 05:22 Platelet Satelliting Not Reportable 12/16/17 05:22 Plt Morphology Comment Not Reportable 12/16/17 05:22 RBC Morphology Not Reportable 12/16/17 05:22 Dimorphic RBCs Not Reportable 12/16/17 05:22 Polychromasia Not Reportable 12/16/17 05:22 Hypochromasia Not Reportable 12/16/17 05:22 Poikilocytosis Not Reportable 12/16/17 05:22 Anisocytosis 1+ 12/16/17 05:22 Microcytosis Not Reportable 12/16/17 05:22 Macrocytosis Not Reportable 12/16/17 05:22 Spherocytes Not Reportable 12/16/17 05:22 Pappenheimer Bodies Not Reportable 12/16/17 05:22 Sickle Cells Not Reportable 12/16/17 05:22 Target Cells 1+ 12/16/17 05:22 Tear Drop Cells Not Reportable 12/16/17 05:22 Ovalocytes Not Reportable 12/16/17 05:22 Helmet Cells Not Reportable 12/16/17 05:22 Pache[place] Bodies Not Reportable 12/16/17 05:22 [place] Rings Not Reportable 12/16/17 05:22 Brijesh Cells Not Reportable 12/16/17 05:22 Bite Cells Not Reportable 12/16/17 05:22 Crenated Cell Not Reportable 12/16/17 05:22 Elliptocytes Not Reportable 12/16/17 05:22 Acanthocytes (Spur) Not Reportable 12/16/17 05:22 Rouleaux Not Reportable 12/16/17 05:22 Hemoglobin C Crystals Not Reportable 12/16/17 05:22 Schistocytes Not Reportable 12/16/17 05:22 Malaria parasites Not Reportable 12/16/17 05:22 Pedro Bodies Not Reportable 12/16/17 05:22 Hem Pathologist Commnt No 12/16/17 05:22 PT 19.6 Sec. (12.2-14.9) H 12/18/17 05:25 INR 1.56 (0.87-1.13) H 12/18/17 05:25 APTT 37.6 Sec. (24.2-36.6) H 12/19/17 05:22 Sodium 135 mmol/L (137-145) L 12/20/17 07:00 Potassium 4.1 mmol/L (3.6-5.0) 12/20/17 07:00 Chloride 98.0 mmol/L (98-107) 12/20/17 07:00 Carbon Dioxide 25 mmol/L (22-30) 12/20/17 07:00 Anion Gap 16 mmol/L 12/20/17 07:00 BUN 45 mg/dL (9-20) H 12/20/17 07:00 Creatinine 1.1 mg/dL (0.8-1.5) 12/20/17 07:00 Estimated GFR > 60 ml/min 12/20/17 07:00 BUN/Creatinine Ratio 41 % 12/20/17 07:00 Glucose 98 mg/dL (75-100) 12/20/17 07:00 Osmolality 304 Mosm/kg 12/14/17 06:55 Calcium 8.2 mg/dL (8.4-10.2) L 12/20/17 07:00 Phosphorus 3.60 mg/dL (2.5-4.5) 12/14/17 06:55 Iron 48 ug/dL (49-181) L 12/13/17 10:44 TIBC 168 mcg/dL (250-450) L 12/13/17 10:44 Ferritin 508.4 ng/mL (13.0-400.0) H 12/13/17 10:44 Total Bilirubin 18.70 mg/dL (0.1-1.2) H 12/20/17 07:00 Direct Bilirubin 16.7 mg/dL (0-0.2) H 12/12/17 22:06 Indirect Bilirubin 11.7 mg/dL 12/12/17 22:06 AST 249 units/L (5-40) H 12/20/17 07:00 ALT 71 units/L (7-56) H 12/20/17 07:00 Alkaline Phosphatase 81 units/L (35-129) 12/20/17 07:00 Ammonia 10.0 umol/L (25-60) L 12/12/17 23:50 Total Protein 6.3 g/dL (6.3-8.2) 12/20/17 07:00 Albumin 2.6 g/dL (3.9-5) L 12/20/17 07:00 Albumin/Globulin Ratio 0.7 % 12/20/17 07:00 [id number] See scanned results 12/13/17 10:44 Ceruloplasmin 27 mg/dL (18-36) 12/13/17 10:44 Lipase 230 units/L (13-60) H 12/12/17 23:35 Tumor Marker AFP See scanned results 12/13/17 10:44 Urine Color Chasity (Yellow) 12/12/17 Unknown Urine Turbidity Clear (Clear) 12/12/17 Unknown Urine pH 5.0 (5.0-7.0) 12/12/17 Unknown Ur Specific [place] 1.016 (1.003-1.030) 12/12/17 Unknown Urine Protein <15 mg/dl mg/dL (Negative) 12/12/17 Unknown Urine Glucose (UA) Neg mg/dL (Negative) 12/12/17 Unknown Urine Ketones Neg mg/dL (Negative) 12/12/17 Unknown Urine Blood Mod (Negative) 12/12/17 Unknown Urine Nitrite Neg (Negative) 12/12/17 Unknown Urine Bilirubin Mod (Negative) 12/12/17 Unknown Urine Ictotest Positive (Negative) 12/12/17 Unknown Urine Urobilinogen 4.0 mg/dL (<2.0) 12/12/17 Unknown Ur Leukocyte Esterase Tr (Negative) 12/12/17 Unknown Urine WBC (Auto) 11.0 /HPF (0.0-6.0) H 12/12/17 Unknown Urine RBC (Auto) 3.0 /HPF (0.0-6.0) 12/12/17 Unknown U Epithel Cells (Auto) 1.0 /HPF (0-13.0) 12/12/17 Unknown Urine Bacteria (Auto) 2+ /HPF (Negative) 12/12/17 Unknown Urine Mucus Few /HPF 12/12/17 Unknown Urine Eosinophils None seen (None Seen) 12/13/17 17:31 Urine Creatinine 199.9 mg/dL (0.1-20.0) H 12/13/17 17:31 Urine Sodium 10 mmol/L 12/13/17 17:31 Urine Total Protein 44 mg/dL (5-11.8) H 12/13/17 17:31 Fluid Type Ascitic 12/19/17 Unknown Fluid Color Yellow 12/19/17 Unknown Fluid Appearance Hazy 12/19/17 Unknown Fluid WBC 255 /mm3 12/19/17 Unknown Fluid RBC 308 /mm3 12/19/17 Unknown Fluid Seg Neutrophils 55.0 % 12/19/17 Unknown Fluid Lymphocytes 13.0 % 12/19/17 Unknown Fluid Reactive Lymphs Not Reportable 12/19/17 Unknown Fluid Monocytes 32.0 % 12/19/17 Unknown Fluid Eosinophils Not Reportable 12/19/17 Unknown Fluid Basophils Not Reportable 12/19/17 Unknown Acetaminophen < 5.0 ug/mL (10.0-30.0) L 12/12/17 23:39 Copper 99 mcg/dL (70-175) 12/13/17 13:17 RUSSELL Screen Negative (Negative) 12/13/17 10:44 Sm (Gamino) Antibody <1.0 AI (<1.0) 12/13/17 10:44 Hepatitis A IgM Ab Non-reactive (NonReactive) 12/12/17 23:39 Hep Bs Antigen Non-reactive (Negative) 12/12/17 23:39 Hep B Core IgM Ab Non-reactive (NonReactive) 12/12/17 23:39 Hepatitis C Antibody Non-reactive (NonReactive) 12/12/17 23:39
[2017-12-21] MEDS: cefTRIAXone 1 GM in NACL 0.9% 20 ML IV SCH (11:35)
[2017-12-21] MEDS: SODIUM CHLORIDE FLUSH SYRINGE 10 ML IV SCH ×2 (11:36→21:55)
[2017-12-21 11:50] LABS: Alanine Aminotransferase 71 units/L (7-56); Albumin 2.3 g/dL (3.9-5); BUN/Creatinine Ratio 54; Blood Urea Nitrogen 38 mg/dL (9-20); Calcium 7.6 mg/dL (8.4-10.2); Hemolysis Index 61; INR 1.46 (0.87-1.13)
--- NOTE | 2017-12-21 18:40 | Gastroenterology Progress Note ---
Assessment and Plan 1. Acute on chronic liver failure 2. Jaundice 3. Ascites -bilirubin/liver enyzmes trending down. suspect pt had DILI with subsequent improvement in labs with discontinuation of medications. consider d/c home tomorrow if labs still improving and no new symptoms. will need close out pt f/ u and likely referral for transplant given high meld Subjective Date of service: 12/21/17 Principal diagnosis: cirrhosis with liver failure Interval history: pt seen and examined. no new complaints. tolerating po. reports some improvement from abd discomfort following paracentesis Objective - Exam Narrative Exam: Gen: NAD, obese male, jaundiced CV: RRR Lungs: CTAB, non labored Abd: soft, obese, nt, +bs Neuro: oriented x 3 - Constitutional Vitals: Temp Pulse Resp BP Pulse Ox 98.1 F 80 19 134/67 97 12/21/17 15:35 12/21/17 15:35 12/21/17 15:35 12/21/17 15:35 12/21/17 15:35 - Labs CBC & Chem 7: 12/20/17 07:00 12/21/17 09:37 Labs: Laboratory Results - last 24 hr 12/21/17 12/21/17 09:37 09:37 PT 18.6 H INR 1.46 H Sodium 132 L Potassium 4.7 Chloride 95.7 L Carbon Dioxide 23 Anion Gap 18 BUN 38 H Creatinine 0.7 L Estimated GFR > 60 BUN/Creatinine Ratio 54 Glucose 99 Calcium 7.6 L Total Bilirubin 16.20 H AST 242 H ALT 71 H Alkaline Phosphatase 80 Total Protein 5.9 L Albumin 2.3 L Albumin/Globulin Ratio 0.6
[2017-12-22] MEDS: SODIUM CHLORIDE FLUSH SYRINGE 10 ML IV SCH (10:57)
[2017-12-22] MEDS: cefTRIAXone 1 GM in NACL 0.9% 20 ML IV SCH (10:57)
[2017-12-22 11:30] LABS: Alanine Aminotransferase 70 units/L (7-56); Albumin 2.3 g/dL (3.9-5); BUN/Creatinine Ratio 44; Blood Urea Nitrogen 31 mg/dL (9-20); Calcium 7.8 mg/dL (8.4-10.2); Hemolysis Index 43
--- NOTE | 2017-12-22 12:09 | Discharge Summary ---
Providers - Providers Date of Admission: 12/13/17 03:24 Date of discharge: 12/22/17 Attending physician: MARBELLA SAINI 12/13/17 01:15 Consult to Physician [CONS] Urgent Comment: Consulting Provider: IKER MUÑOZ Physician Instructions: Reason For Exam: liver cirrhosis, elevated lft's 12/13/17 01:16 Consult to Physician [CONS] Urgent Comment: Consulting Provider: LINDA LUX Physician Instructions: Reason For Exam: renal insuf 12/14/17 08:00 Consult to Dietitian/Nutrition [CONS] Routine Physician Instructions: Reason For Exam: Reason for Consult: Poor oral intake 12/17/17 11:14 Consult to Interventional Radiology [CONS] Routine Consulting Provider: DEBORAH HILARIO Reason For Exam: possible liver biopsy Place consult to:: In-house Notified:: yes Phone number called:: [employer] Was contact made?: Yes If yes, spoke with:: Time called:: 11:33 12/18/17 10:08 Physical Therapy Evaluation and Treat [CONS] Routine Comment: Reason For Exam: deconditioning Primary care physician: JACQUES HERNÁNDEZ Hospitalization Condition: Stable Disposition: [id number] HOME UNDER HOME [facility] Time spent for discharge: 33 min Core Measure Documentation - Palliative Care Palliative Care/ Comfort Measures: Not Applicable - Core Measures Any of the following diagnoses?: none Exam - Constitutional Vitals: Temp Pulse Resp BP Pulse Ox 98.3 F 82 19 137/79 98 12/21/17 20:26 12/22/17 07:47 12/22/17 07:47 12/22/17 07:47 12/22/17 07:47 General appearance: Present: no acute distress, well-nourished - EENT Eyes: Present: PERRL, EOM intact - Neck Neck: Present: supple, normal ROM - Respiratory Respiratory effort: normal Respiratory: bilateral: diminished, negative: rales, rhonchi, wheezing - Cardiovascular Rhythm: regular Heart Sounds: Present: S1 & S2 - Extremities Extremities: no ischemia Extremity abnormal: edema - Abdominal General gastrointestinal: Present: soft, non-tender, distended, normal bowel sounds - Integumentary Integumentary: Present: clear, warm - Musculoskeletal Musculoskeletal: strength equal bilaterally - Psychiatric Psychiatric: appropriate mood/affect, cooperative - Neurologic Neurologic: CNII-XII intact, moves all extremities Plan Activity: advance as tolerated Diet: other (Hepatic diet) Follow up with: JACQUES HERNÁNDEZ MD [Primary Care Provider] - 7 Days JONATHAN HERNÁNDEZ MD [Staff Physician] - 7 Days Prescriptions: Famotidine [Pepcid] 20 mg PO BID #30 tablet Ondansetron [Zofran TAB] 4 mg PO Q8HR PRN #15 tablet PRN Reason: Nausea
[2017-12-22 16:47] VITALS: BP 129/68
[2017-12-24 07:11] LABS: Amylase,Body Fluid 17; Cholesterol,Body Fluid 8; LDH,Body Fluid 56; Total Protein,Body Fluid < 3.0 (15.0-45.0); Triglycerides,Body Fluid 15
== END 2017-12-22 19:25 | disposition home health service (06) | DRG 433 ==
LOC: EDBD → ED 20:49 → 3A 12-13 03:24
PROVIDERS: ADMIT Internal Medicine; ATTEND Internal Medicine
PROC: B51V1ZZ Fluoroscopy of Other Veins using Low Osmolar Contrast (ICD-10-PCS; 2017-12-18)
PROC: 06H033Z Insertion of Infusion Device into Inferior Vena Cava, Percutaneous Approach (ICD-10-PCS; 2017-12-18)
PROC: 0W9G3ZZ Drainage of Peritoneal Cavity, Percutaneous Approach (ICD-10-PCS; principal; 2017-12-20)
DX: K74.60 Unspecified cirrhosis of liver (principal); R17 Unspecified jaundice; N39.0 Urinary tract infection, site not specified; R18.8 Other ascites; N17.9 Acute kidney failure, unspecified; D68.9 Coagulation defect, unspecified; E46 Unspecified protein-calorie malnutrition; N28.9 Disorder of kidney and ureter, unspecified; N18.3 Chronic kidney disease, stage 3 (moderate); E66.9 Obesity, unspecified; E11.22 Type 2 diabetes mellitus with diabetic chronic kidney disease; I12.9 Hypertensive chronic kidney disease with stage 1 through stage 4 chronic kidney disease, or unspecified chronic kidney disease; Z68.35 Body mass index [BMI] 35.0-35.9, adult; Z82.49 Family history of ischemic heart disease and other diseases of the circulatory system
CPT/HCPCS: 36012; 36415; 49083; 74176; 75889; 76700; 80053; 80074; 80320; 81001; 82040; 82103; 82106; 82140; 82150; 82390; 82465; 82525; 82570; 82728; 82947; 83550; 83605; 83690; 83930; 84100; 84156; 84160; 84300; 84478; 85007; 85025; 85610; 85730; 86038; 86235; 87040; 87086; 87116; 88112; 88305; 88342; 89050; 89051; 94760; 96374; C1751; C1769; C1887; G0480; J0690; J0696; J1644; J2250; J3010; J3430; J7050; P9045; Q9967